=== PATIENT | male | born 1945 | race Caucasian/White ===

== ENCOUNTER 2017-04-20 09:34 | Outpatient (CLI) | payer MEDICARE, BC ==
--- NOTE | 2017-04-20 11:51 | CT ---
CHEST CT WITH CONTRAST: History: Follow up lung cancer. Patient is undergoing radiation therapy. Comparison: 09-12-15, 10-20-16, 06-06-16 Technique: Post contrast chest CT is performed in the axial plane. Coronal reformatted images are sub mitted for interpretation. FINDINGS: Heart size is within normal limits. No significant pericardial fluid. Coronary calcifications are mackenzie ntified. No significant pericardial fluid. Visualized aorta has a normal caliber. Visualized upper solid organs are unremarkable. There is a complex cyst in the left renal pelvis. Trachea and central bronchi are patent. Patchy ground glass opacities in the right lung. There is norris dence of a left upper lobe resection. The left lower lobe has linear opacification as well as more fo angelica parenchymal opacification. The degree of opacification has progressed when compared to the prior examination. Previously noted nodular opacity in the left lower lobe measuring 2.0 x 1.6 cm is diffic ult to appreciate given the overall increase in opacification. There is some elevation of the left he midiaphragm suggesting a component of atelectasis. There is a hypodensity in the left infrahilar nina on which has increased in size when compared to the prior exam. Currently, the attenuation coefficien t is 42 Hounsfield units. Note, the mass was difficult to appreciate on the previous examination. Cur rently, this hypodense mass measures 2.9 x 2.1 x 2.5 cm. Post-operative enlarging fluid collection ve rsus a necrotic lymph node/area of malignancy are differential considerations. PET imaging may be marlee eficial. There are no lytic or blastic lesions. IMPRESSION: 1. Interval enlargement and better demonstration of the hypodensity in the left infrahilar region as detailed above. PET imaging is recommended. POS: [facility]
== END 2017-04-20 09:35 | disposition home or self-care (01) ==
LOC: CT 09:34
PROVIDERS: ATTEND Radiology Radiation Oncology
DX: C34.32 Malignant neoplasm of lower lobe, left bronchus or lung (principal); C34.12 Malignant neoplasm of upper lobe, left bronchus or lung
CPT/HCPCS: 71260

== ENCOUNTER 2017-04-30 11:00 | Outpatient (CLI) | payer MEDICARE, BC ==
--- NOTE | 2017-05-02 11:34 | PET ---
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 Status post lobectomy on 10/08/14, treated with subsequent chemotherapy. Lung cancer in the l eft lower lobe diagnosed on 04/22/16 which was treated with radiation. Exam requested for restaging. TECHNIQUE: PET scanning with CT attenuation correction was performed from the base of the brain through the prox imal thighs following the intravenous administration of 14.3 mCi F18-FDG in the right antecubital fos sa. Imaging was performed after an uptake interval of 59 minutes. COMPARISON: PET CT dated 06/23/16. CORRELATION: CT chest dated 04/20/17. FINDINGS: There is mildly increased FDG uptake in the left infrahilar hyperdense mass noted on the CT scan with a SUV of 2.5. There is increased patchy FDG localization in the left lung base with a SUV of 3.4, likely due to rad iation therapy changes. No other abnormal areas of FDG localization seen in the chest. No kris hypermetabolism is seen in the neck, axilla, abdomen, or pelvis. No hypermetabolic liver, ad renal, or skeletal lesions are seen. There is physiologic activity in the GI and tracts, and the visualized portions of the brain. The CT scan used for attenuation correction demonstrates no evidence of pleural effusions or ascites. IMPRESSION: 1. Borderline FDG uptake and SUV values in the left infrahilar mass seen on the CT scan. 2. Increased patchy FDG localization in the left lower lobe is most likely due to radiation therapy changes. POS: [facility]
== END 2017-04-30 11:01 | disposition home or self-care (01) ==
LOC: PET 11:00
PROVIDERS: ATTEND Radiology Radiation Oncology
DX: C34.32 Malignant neoplasm of lower lobe, left bronchus or lung (principal)
CPT/HCPCS: 78815; A9552

== ENCOUNTER 2017-05-11 14:39 | Outpatient (CLI) | payer MEDICARE, BC ==
--- NOTE | 2017-05-11 16:32 | NM ---
VQ SCAN: History: 71-year-old male with shortness of breath. Comparison: Chest x-ray, 05-11-17. Technique: A VQ scan was performed. Ventilation images were obtained using 9.9 mCi of Xenon 133. Perf usion images were obtained using 6 mCi Technetium 99M MAA. FINDINGS: Ventilation: Breath holds, equilibrium, and washout phases are normal. No air trapping is seen. No ve ntilatory defects are present. Perfusion: No small, medium, or large perfusion defects are seen. IMPRESSION: Normal VQ scan. POS: [facility]
--- NOTE | 2017-05-11 16:35 | RAD ---
TWO VIEWS OF THE CHEST: Comparison: 01-11-17 History: Shortness of breath. FINDINGS: Two views of the chest shows an enlarged but stable cardiomediastinal silhouette. The Mediport is unc hanged in position. Increased interstitial markings are present. There is stable elevation of the lef t hemidiaphragm. There is no evidence of consolidation, mass, or pleural effusions. There is stable o pacity in the posterior aspect of the left thorax seen on the lateral radiograph. This may represent elevated left diaphragm and/or atelectasis in the left lung base. IMPRESSION: Elevated left hemidiaphragm with left basilar atelectasis. POS: [facility]
== END 2017-05-11 14:40 | disposition home or self-care (01) ==
LOC: NM 14:39
DX: J43.1 Panlobular emphysema (principal); J98.11 Atelectasis; J98.6 Disorders of diaphragm; R91.1 Solitary pulmonary nodule
CPT/HCPCS: 71020; 78582; A9540; A9558

== ENCOUNTER 2017-06-01 10:16 | Outpatient (CLI) | payer MEDICARE, BC ==
--- NOTE | 2017-06-01 11:06 | RAD ---
RADIOGRAPH CHEST 2 VIEWS: Date: 06-01-17 Time: 10:30 a.m. HISTORY: 71-year-old male with dyspnea. COMPARISON: 05-11-17 FINDINGS: Right subclavian implantable vascular access port. Chronically elevated left hemidiaphragm with left basilar pulmonary and pleural scarring, and architectural distortion. Multiple old, healed left rib f racture deformities. Ectasia and tortuosity of the thoracic aorta. Cardiac shadow partially obscured by the changes at the left. Chronic blunting of the left posterior costophrenic angle: pleural thicke hilary vs. small effusion. No evidence of pleural effusion on the right side. No new consolidation or p ulmonary edema. There is mild pulmonary vascular engorgement. No pneumothorax. No interval change ove rall. IMPRESSION: 1. Extensive chronic changes involving the left hemithorax, including multiple old left rib fractures , left basilar pulmonary scarring, and left basilar pleural thickening. 2. Implantable vascular access port. 3. No interval change, and no acute findings. DRAKE POS: [facility]
== END 2017-06-01 10:17 | disposition home or self-care (01) ==
LOC: RAD 10:16
PROVIDERS: ATTEND Internal Medicine Critical Care Medicine
DX: R06.00 Dyspnea, unspecified (principal); J98.4 Other disorders of lung; Z95.9 Presence of cardiac and vascular implant and graft, unspecified
CPT/HCPCS: 71046

== ENCOUNTER 2017-06-27 14:54 | Outpatient (CLI) | payer MEDICARE, BC ==
--- NOTE | 2017-06-27 15:37 | RAD ---
TWO VIEWS CHEST: Comparison: 06-01-17 History: Dyspnea. FINDINGS: Two views of the chest shows an enlarged but stable cardiomediastinal silhouette. The Mediport is unc hanged in position. Increased interstitial markings are present. Linear opacity in the left lung base may represent atelectasis or scarring. No obvious consolidation, mass, or pleural effusion are seen . Degenerative changes are seen in the spine. IMPRESSION: Cardiomegaly without evidence of acute cardiopulmonary disease. POS: [facility]
== END 2017-06-27 14:55 | disposition home or self-care (01) ==
LOC: RAD 14:54
PROVIDERS: ATTEND Internal Medicine Pulmonary Disease
DX: R06.00 Dyspnea, unspecified (principal); I51.7 Cardiomegaly
CPT/HCPCS: 71046

== ENCOUNTER 2017-06-29 07:57 | Outpatient (CLI) | payer MEDICARE, BC ==
--- NOTE | 2017-06-29 09:30 | CT ---
CT ARTERIOGRAM CHEST WITH IV CONTRAST AND 3D MIP IMAGING: History: Chest pain. Dyspnea. Lung cancer. Comparison: 04-20-17 FINDINGS: There is good contrast opacification of the pulmonary arteries and thoracic aorta with bovine origin of the great vessels from the aortic arch. There is calcification of the arterial structures. Post-op erative changes in the mediastinum are apparent. Post-operative changes of the left lower chest posteriorly are again demonstrated. Residual of atelec tasis and scarring at the left posterolateral lung base is stable. At the left posterior infrahilar level, just posterior to the left mainstem bronchus, the lobular low density mass having the appearance of hilar adenopathy is now 3.9 x 3.4 x 2.8 cm greatest diameter ( previously 2.9 x 2.5 x 2.1 cm). Lungs are otherwise hyperinflated with emphysematous changes and parenchymal scarring. IMPRESSION: 1. No CT evidence of pulmonary embolus. 2. Continued interval enlargement of the left infrahilar mass/adenopathy. POS: [facility]
[2017-06-29] MEDS ORDERED: Iopamidol 370 76% 100 ML VIAL ONE (12:39)
== END 2017-06-29 07:58 | disposition home or self-care (01) ==
LOC: CT 07:57
PROVIDERS: ATTEND Internal Medicine Pulmonary Disease
DX: I26.99 Other pulmonary embolism without acute cor pulmonale (principal); R59.0 Localized enlarged lymph nodes
CPT/HCPCS: 71275

== ENCOUNTER 2018-07-19 12:52 | Outpatient (CLI) | payer MEDICARE, BC ==
--- NOTE | 2018-07-19 15:10 | RAD ---
2 VIEWS CHEST: Date: 07/19/18 COMPARISON: 06/27/17. HISTORY: Dyspnea. FINDINGS: There is no pneumothorax. Heart and mediastinal contours are stable. There is atherosclerotic calcifi cation overlying the region of the descending thoracic aorta. There is increased linear interstitial density noted throughout the right lung, stable. Persistent fo angelica opacity is noted in the left lung base, including the costophrenic and cardiophrenic regions with elevation of the left hemidiaphragm. Of note, these findings are unchanged when compared to multiple prior exams. A CT angiogram of the chest performed 06/29/17 demonstrated a left hilar mass, and pleu ral and parenchymal opacity in the left base. These findings are consistent with the patient's histor y of lung cancer. IMPRESSION: Stable appearance of the chest as detailed above. POS: [facility]
== END 2018-07-19 12:53 | disposition home or self-care (01) ==
LOC: RAD 12:52
PROVIDERS: ATTEND Internal Medicine Pulmonary Disease
DX: R06.00 Dyspnea, unspecified (principal); J98.4 Other disorders of lung; R91.8 Other nonspecific abnormal finding of lung field; I70.0 Atherosclerosis of aorta
CPT/HCPCS: 71046

== ENCOUNTER 2018-07-20 14:25 | Outpatient (CLI) | payer MEDICARE, BC ==
[2018-07-20 15:38] LABS: Anion Gap 13 mmol/L (10-20); BUN (Urea Nitrogen) 23 mg/dL (8.4-25.7); Calc. Creatinine Clearance 0 mL/min (70-130); Calcium 10.1 mg/dL (7.8-10.44); Carbon Dioxide 32 mmol/L (23-31); Chloride 99 mmol/L (98-107); Estimated GFR-MDRD 47; Glucose 111 mg/dL (80-115); Potassium 4.9 mmol/L (3.5-5.1); Sodium 139 mmol/L (136-145)
== END 2018-07-20 14:26 | disposition home or self-care (01) ==
LOC: LABBT 14:25
PROVIDERS: ATTEND Internal Medicine Cardiovascular Disease
DX: Z01.812 Encounter for preprocedural laboratory examination (principal)
CPT/HCPCS: 80048

== ENCOUNTER 2018-07-21 08:18 | Day surgery (SDC) | payer MEDICARE, BC ==
[2018-07-20 17:34] VITALS: BMI 343.6
[2018-07-21] MEDS ORDERED: PROPOFOL 20 ML ONE (09:30)
--- NOTE | 2018-07-21 11:37 | DIS ---
DATE OF ADMISSION: 07/21/2018 DATE OF DISCHARGE: 07/21/2018 HOSPITAL COURSE: He was seen in the outpatient facility today to undergo electrocardioversion of atrial fibrillation. This is an elective procedure. He was recently to have atrial fibrillation with rapid ventricular response. He was also placed on Multaq yesterday morning. He has had 3 doses of Multaq and was advised to undergo electrocardioversion of atrial fibrillation. He was taken to the recovery area, where he underwent the procedure today without difficulties or complications. His discharge medications will be the same as his admission medications. These include digoxin, albuterol inhalers or nebulizers. He is also taking Daliresp, prednisone 5 mg a day, aspirin 81 mg a day, metformin 800 mg b.i.d., gabapentin, Xarelto 20 mg a day, Lipitor 40 mg a day, metoprolol 25 mg q.a.m., Trelegy Ellipta, vitamin D, potassium 20 mEq a day, Lasix 40 mg a day and also medications for his lung cancer. He is taking nivolumab, this is an intravenous injection as per the oncologist. He will follow up with me next week in the office. There were no complications or difficulties during the procedures. He remained stable. He will be discharged to home in the next hour or 2. Job ID: [id number]
[2018-07-21] MEDS ORDERED: PROPOFOL 200 MG/20 ML VIAL ONE (15:52)
--- NOTE | 2018-07-21 17:07 | EKG ---
Test Reason : POST CARDIOVERSION Blood Pressure : / mmHG Vent. Rate : 084 BPM Atrial Rate : 084 BPM P-R Int : 176 ms QRS Dur : 118 ms QT Int : 372 ms P-R-T Axes : 072 -27 043 degrees QTc Int : 439 ms Normal sinus rhythm Incomplete right bundle branch block Borderline ECG When compared with ECG of 21-APR-2016 12:16, Incomplete right bundle branch block is now Present Confirmed by SHANNON BEAL ([id number]) on 07/21/2018 5:07:07 PM Referred By: GABRIELLA Confirmed By:SHANNON BEAL
--- NOTE | 2018-07-22 18:34 | OP ---
DATE OF PROCEDURE: 07/21/18 INDICATION FOR PROCEDURE: This is an 72-year-old with history of coronary artery disease, lung cancer, COPD, who developed atri al fibrillation, shortness of breath. The atrial fibrillation was with rapid ventricular response. He was advised to undergo electrocardioversion of the atrial fibrillation. He was taken to the recovery area where he underwent the procedure without difficulties or complicat ions. He has been on Xarelto for several months due to his history of PE in the past. He underwent th e procedure today only with electrocardioversion at one attempt at 200 joules. He was successfully co nverted back to normal sinus rhythm. He was given short acting Propofol for the procedure. There were no complications or difficulties encountered.
== END 2018-07-21 10:58 | disposition home or self-care (01) ==
LOC: CCL 08:18
PROVIDERS: ATTEND Internal Medicine Cardiovascular Disease
PROC: 5A2204Z Restoration of Cardiac Rhythm, Single (ICD-10-PCS; principal; 2018-07-21)
DX: I48.0 Paroxysmal atrial fibrillation (principal); I25.10 Atherosclerotic heart disease of native coronary artery without angina pectoris; I10 Essential (primary) hypertension; E11.9 Type 2 diabetes mellitus without complications; E78.2 Mixed hyperlipidemia; J44.9 Chronic obstructive pulmonary disease, unspecified; Z79.52 Long term (current) use of systemic steroids; Z79.82 Long term (current) use of aspirin; Z79.84 Long term (current) use of oral hypoglycemic drugs; Z79.899 Other long term (current) drug therapy; Z95.1 Presence of aortocoronary bypass graft
CPT/HCPCS: 92960; 93005; 93010; J2704

== ENCOUNTER 2018-09-08 10:14 | Inpatient (IN) | payer MEDICARE, BC ==
[2018-09-08 11:18] LABS: INR-International Normal Ratio 1.5; PTT 40.5 SEC (22.9-36.1); Prothrombin Time 17.9 SEC (12.0-14.7)
[2018-09-08 11:24] LABS: ALT (SGPT) 314 U/L (8-55); AST (SGOT) 139 U/L (5-34); Albumin 3.6 g/dL (3.4-4.8); Alkaline Phosphatase 100 U/L (40-150); Anion Gap 16 mmol/L (10-20); BUN (Urea Nitrogen) 41 mg/dL (8.4-25.7); Calc. Creatinine Clearance 0 mL/min (70-130); Calcium 9.5 mg/dL (7.8-10.44); Carbon Dioxide 26 mmol/L (23-31); Chloride 96 mmol/L (98-107); Estimated GFR-MDRD 51; Globulin 3.2 g/dL (2.4-3.5); Glucose 227 mg/dL (83-110); Potassium 4.2 mmol/L (3.5-5.1); Protein, Total 6.8 g/dL (5.8-8.1); Sodium 134 mmol/L (136-145)
[2018-09-08 11:33] LABS: Platelet Morphology Comment Appears Decreased
[2018-09-08 11:34] LABS: #Eosinphils 0.1 thou/uL (0.0-0.7); #Lymphocytes 0.3 thou/uL (1.20-3.40); #Monocytes 0.1 thou/uL (0.11-0.59); #Neutrophils 2.3 thou/uL (1.40-6.50); %Eosinophils 5.1 % (0.0-10.0); %Monocytes 2.7 % (0.0-10.0); %Neutrophils 83.3 % (42.0-75.0); Mean Corpuscular HGB CONC 33.3 g/dL (32.0-36.0); Mean Corpuscular Hemoglobin 30.2 pg (27.0-31.0); Mean Corpuscular Volume 90.7 fL (78.0-98.0); Mean Platelet Volume 7.8 fL (7.4-10.4); Platelet Count 90 thou/uL (130-400); RBC Distribution Width 15.4 % (11.5-14.5); Red Blood Cell (RBC) Count 2.97 mill/uL (4.70-6.10); White Blood Cell (WBC) Count 2.8 thou/uL (4.8-10.8)
[2018-09-08] MEDS ORDERED: Oxymetazoline HCl 0.05% ( 15 ML ) ONE (13:10)
--- NOTE | 2018-09-08 14:25 | ULT ---
EXAM: Bilateral lower extremity venous duplex ultrasound with color and spectral Doppler imaging: HISTORY: Lower extremity edema and redness particularly in the left calf COMPARISON: None FINDINGS: The left posterior tibial veins were less than optimally imaged because of extensive edema Exam performed from the groin to the ankle including the visualized greater saphenous, common femoral , superficial femoral, profunda femoral, popliteal, trifurcation, and posterior tibial veins. There is phasic flow with normal compressibility and normal augmentation at all examined levels. No evidence for intraluminal thrombus. IMPRESSION:: No evidence for deep venous thrombosis.
[2018-09-08] MEDS ORDERED: hydrALAZINE 20 MG/ML VIAL SLOW IVP PRN (16:27)
[2018-09-08] MEDS ORDERED: Oxymetazoline HCl 0.05% ( 15 ML ) NASAL PRN (16:27)
[2018-09-08] MEDS ORDERED: HumaLOG 300 UNITS/3 ML VIAL SC PRN ×2 (16:27)
[2018-09-08] MEDS ORDERED: Dextrose 50% Abboject 50 ML SYRINGE SLOW IVP PRN (16:27)
[2018-09-08] MEDS ORDERED: Promethazine 25 MG TAB PO PRN (16:27)
[2018-09-08] MEDS ORDERED: Dextrose 5% in Water 1,000 ML IV PRN (16:27)
[2018-09-08] MEDS ORDERED: Metoprolol Tartrate 25 MG TAB PO SCH (16:45)
[2018-09-08] MEDS ORDERED: Dronedarone HCl 400 MG TAB PO SCH ×2 (17:00→19:30)
[2018-09-08 19:55] LABS: D-Dimer Test 1.54 *mcg/mL (0.27-0.43)
[2018-09-08] MEDS ORDERED: Atorvastatin Calcium 40 MG TAB PO SCH (21:00)
[2018-09-08] MEDS ORDERED: Aspirin 81 mg Enteric Coated Tablet PO SCH (21:00)
[2018-09-08] MEDS: Rivaroxaban 10 MG TAB PO SCH (21:31)
[2018-09-08] MEDS: Gabapentin 300 MG CAP PO SCH (21:32)
[2018-09-08] MEDS: Metoprolol Tartrate 25 MG TAB PO SCH (21:34)
[2018-09-08] MEDS ORDERED: Ondansetron PF 4 MG/2 ML Vial IVP PRN (21:55)
[2018-09-08] MEDS ORDERED: Ondansetron ODT 4 MG TAB PO PRN (21:59)
[2018-09-08] MEDS: Acetaminophen 325 MG TAB PO PRN (22:48)
[2018-09-08] MEDS: Ibuprofen 600 MG TAB PO SCH (22:49)
--- NOTE | 2018-09-08 23:19 | HP ---
PRIMARY CARE PHYSICIAN: Dr. Carpio. CHIEF COMPLAINT: Nosebleed. HISTORY OF PRESENT ILLNESS: Mr. Barbosa is a pleasant 73-year-old gentleman who has a history of lung cancer as well as coronary artery disease, atrial fibrillation, and a previous pulmonary embolism. He was in his usual state of health until last night when he woke up around 5:30 in the morning as he was having some pain in his leg. He was straining to pull off the compression hose that he normally wears and then started noticing bleeding from the left nostril. He says that later on that night he went to the bathroom and strained, and then the nose started to bleed again. He says it was quite a lot close to he says a gallon and this worried him and for this reason he came to the emergency room for evaluation. He denies having any dizziness. No headache or chest pain. He is on Xarelto for the pulmonary embolism as well as atrial fibrillation, and otherwise he has no complaints except for leg pain which he attributed to the compression stockings. REVIEW OF SYSTEMS: All systems were reviewed and are negative except for that mentioned in the history of present illness. PAST MEDICAL HISTORY: Significant for coronary artery disease, lung cancer, diagnosed 4 years ago, COPD, diabetes mellitus, hyperlipidemia, pulmonary embolism, and paroxysmal atrial fibrillation. PAST SURGICAL HISTORY: He has had a bypass surgery, staph infection, left upper lobe resection, removal of lymph nodes and a cardioversion. ALLERGIES: NO KNOWN DRUG ALLERGIES. SOCIAL HISTORY: He is a full code. He is a nondrinker. He is a former smoker and he quit in 2010. Prior to that, he smoked 2-4 packs a day and he is . FAMILY HISTORY: Significant for thyroid disease in his mother. Father had prostate cancer and congestive heart failure. CURRENT MEDICATIONS: Include; 1. Aspirin 81 mg daily. 2. Atorvastatin 40 mg daily. 3. Metoprolol 25 mg twice a day. 4. Xarelto 20 mg daily. 5. Spiriva 1 inhalation daily. 6. DuoNeb p.r.n. 7. Gabapentin 300 mg daily. 8. Furosemide 40 mg daily. 9. Digoxin 0.25 mg daily. 10. Daliresp inhaled daily. 11. Multaq 400 mg daily. PHYSICAL EXAMINATION: GENERAL: He is alert and oriented. He appears to be in no acute distress. VITAL SIGNS: Blood pressure was 119/58, heart rate 97, respiratory rate of 20, and temperature is 98.2. HEENT: Pupils are equal, round, and reactive. Extraocular muscles are intact. Sclerae are anicteric. Throat, there is no erythema, no exudates. Nose, in both nostrils, he did have some dried blood and on the right nostril, there appeared to be a little area of excoriation in the medial and anterior aspects of the nasal canal. NECK: No adenopathy, no bruits. LUNGS: Clear to auscultation. There is no wheezing, no rales. CARDIOVASCULAR: He has a normal S1, S2. No S3 or S4. No murmurs, clicks, or rubs. ABDOMEN: Obese, it is soft, nontender, and nondistended. Positive for bowel sounds. No rebound or guarding. EXTREMITIES: He did have some mottling of the skin consistent with some livedo reticularis. He did have some 1 to 2+ edema. NEUROLOGICAL: The exam is nonfocal. SKIN AND INTEGUMENT: No skin changes. No rash. LABORATORY RESULTS: INR is 1.5. White blood cell count 2.8, hemoglobin 9, hematocrit is 26.9, and platelet count is 90. Sodium 134, potassium 4.2, chloride is 96, CO2 is 26, BUN of 41, creatinine 1.38, glucose is 227. ASSESSMENT: This is a pleasant 73-year-old gentleman, who presents with epistaxis. This is in the setting of being on anticoagulation. He will be monitored overnight in observation. It appears as if he has reached hemostasis here in the emergency room. He was given pressure and Afrin, and has not had any significant bleeding sense. We will continue him on the Xarelto an aspirin and hopefully he will not have any additional bleeding. Otherwise, we may need to consult ENT. 1. For the atrial fibrillation, his heart rate has been variable. We will need to restart his home medications and any home medications. 2. Chronic obstructive pulmonary disease. We will continue Symbicort as well as his DuoNeb and if the patient is stable overnight, hopefully he can be discharged home in a.m. Job ID: [id number]
[2018-09-09 06:30] LABS: Anion Gap 12 mmol/L (10-20); BUN (Urea Nitrogen) 40 mg/dL (8.4-25.7); Calc. Creatinine Clearance 64 mL/min (70-130); Calcium 8.8 mg/dL (7.8-10.44); Carbon Dioxide 28 mmol/L (23-31); Chloride 97 mmol/L (98-107); Estimated GFR-MDRD 53; Glucose 172 mg/dL (83-110); Sodium 133 mmol/L (136-145)
[2018-09-09 06:37] LABS: #Lymphocytes 0.3 thou/uL (1.20-3.40); #Monocytes 0.1 thou/uL (0.11-0.59); #Neutrophils 1.7 thou/uL (1.40-6.50); %Eosinophils 1.8 % (0.0-10.0); %Lymphocytes 13.1 % (21.0-51.0); %Neutrophils 80.1 % (42.0-75.0); Hemoglobin 7.8 g/dL (14.0-18.0); Mean Corpuscular HGB CONC 34.2 g/dL (32.0-36.0); Mean Corpuscular Hemoglobin 30.8 pg (27.0-31.0); Mean Corpuscular Volume 90.3 fL (78.0-98.0); Mean Platelet Volume 8.5 fL (7.4-10.4); Platelet Count 47 thou/uL (130-400); RBC Distribution Width 15.1 % (11.5-14.5); Red Blood Cell (RBC) Count 2.53 mill/uL (4.70-6.10); White Blood Cell (WBC) Count 2.2 thou/uL (4.8-10.8)
[2018-09-09 06:38] LABS: Platelet Morphology Comment Appears Decreased
[2018-09-09] MEDS: Gabapentin 300 MG CAP PO SCH ×3 (08:33→21:13)
[2018-09-09] MEDS: Metoprolol Tartrate 25 MG TAB PO SCH ×2 (08:33→21:14)
[2018-09-09] MEDS: Dronedarone HCl 400 MG TAB PO SCH ×2 (08:33→17:54)
[2018-09-09] MEDS ORDERED: Metoprolol Tartrate 25 MG TAB PO SCH (09:00)
[2018-09-09] MEDS: metFORMIN 850 MG TAB PO SCH ×2 (09:49→17:54)
[2018-09-09] MEDS: Acetaminophen 325 MG TAB PO PRN (10:33)
--- NOTE | 2018-09-09 11:46 | PDOC.PN ---
- Subjective Encounter Start Date: 09/09/18 Encounter Start Time: 11:45 Patient seen and examined. No new complaints. No overnight events. no nose bleed. No n/v no sob - Objective Resuscitation Status - Order Detail: 09/08/18 16:19 Resuscitation Status Routine Resuscitation Status: FULL: Full Resuscitation MAR Reviewed: Yes Vital Signs & Weight: Vital Signs (12 hours) Temp Pulse Resp BP BP BP Pulse Ox 09/09/18 11:00 97.6 F 09/09/18 07:00 97.5 F L 84 20 123/58 L 96 09/09/18 03:00 97.8 F 78 12 97/52 L 95 09/09/18 00:03 98.2 F 96 16 119/66 93 L Weight Admit Weight 195 lb Weight 195 lb I&O: 09/08/18 09/09/18 09/10/18 06:59 06:59 06:59 Intake Total 850 Output Total 1850 Balance -1000 Result Diagrams: 09/09/18 05:15 09/09/18 05:15 Additional Labs: Accuchecks 09/09/18 09/09/18 09/08/18 11:02 05:48 20:37 POC Glucose 259 H 194 H 203 H Phys Exam - Physical Examination Constitutional: NAD HEENT: sclera anicteric Neck: supple Respiratory: no wheezing, no rales Cardiovascular: RRR Gastrointestinal: soft Musculoskeletal: edema present Neurological: non-focal, moves all 4 limbs Psychiatric: normal affect, A&O x 3 Skin: no rash Dx/Plan (1) Pancytopenia Code(s): D61.818 - OTHER PANCYTOPENIA Status: Acute (2) Epistaxis Code(s): R04.0 - EPISTAXIS Status: Acute (3) Edema Code(s): R60.9 - EDEMA, UNSPECIFIED Status: Chronic (4) Pulmonary embolism Code(s): I26.99 - OTHER PULMONARY EMBOLISM WITHOUT ACUTE COR PULMONALE Status : Chronic (5) CAD (coronary artery disease) Code(s): I25.10 - ATHSCL HEART DISEASE OF [place] CORONARY ARTERY W/O ANG PCTRS Status: Chronic (6) Lung cancer Code(s): C34.90 - MALIGNANT NEOPLASM OF UNSP PART OF UNSP BRONCHUS OR LUNG Status: Chronic (7) COPD (chronic obstructive pulmonary disease) Status: Chronic (8) HTN (hypertension) Code(s): I10 - ESSENTIAL (PRIMARY) HYPERTENSION Status: Chronic - Plan cont current plan of care, plan discussed w/ family * . no more nose bleed platelets dropped awaiting hem input will consult pulmonology per family request - recent pneumonia and on blood thinner for PE since 2014 AM labs Monitor closely.
--- NOTE | 2018-09-09 14:02 | RAD ---
EXAM: XR Chest 1 View Portable PROVIDED CLINICAL HISTORY: Dyspnea COMPARISON: 07/19/2018 FINDINGS: Cardiac silhouette remains enlarged. Right-sided implanted port is again seen in similar position. Ri ght lung appears clear. Left basilar pleural and/or parenchymal opacity along with elevation of the left hemidiaphragm redemonstrated. No evidence for pneumothorax. IMPRESSION: Stable radiographic appearance of the chest.
[2018-09-09] MEDS: Sodium Chloride 0.65% Nasal 44 ML BOT EA NARE SCH ×2 (15:39→21:15)
[2018-09-09] MEDS: Rivaroxaban 10 MG TAB PO SCH (17:55)
[2018-09-09] MEDS: Mometasone/Formoterol 120 PUFF INHALER INH SCH (19:53)
--- NOTE | 2018-09-09 20:48 | CON ---
DATE OF CONSULTATION: HISTORY OF PRESENT ILLNESS: Jos Barbosa is a 73-year-old gentleman with a very complicated medical history, who was admitted to the hospital yesterday after he had epistaxis. He called his primary care physician, he was told to come to the ER. He was then found to have severe thrombocytopenia, platelet count 47,000, H and H are 7.8 and 22, and white count is 2.2. Creatinine 1.3, sodium 133, and BUN 40. He is seeing MD Leon for an ongoing evaluation and treatment for his metastatic non-small cell lung cancer. He has additional multiple medical problems, but epistaxis did not resolve with symptomatic treatment. He came to the ER. This morning, bleeding has decreased, but still a significant thrombocytopenia. He is having difficulty breathing. He coughed yesterday fair amount of sputum. He was told he had a bout of pneumonia about a week ago when he got chemotherapy. PAST MEDICAL HISTORY: Severe end-stage COPD, coronary artery disease, congestive heart failure, SVT, hypertension, bronchogenic carcinoma recurrent now on chemotherapy by MD Leon. The family has a list of all his medication. History of extensive DVT and PE, long-term anticoagulation. PAST SURGICAL HISTORY: Past surgeries include bypass surgery, lung resection surgery, and left upper lobe lobectomy. He has since then followed up with stereotactic radiation treatment several times. Recently underwent cardioversion by Dr. Dyer, for SVT. Additionally, he had sternal wound infection requiring flap at one time. MEDICATIONS: His list of medicine now includes; 1. Prednisone. 2. Metformin 850. 3. Daliresp 250. 4. Xarelto 20. 5. Potassium. 6. Opdivo 3 mg IV 14 days. 7. Metoprolol 25. 8. Nebulizer. 9. Neurontin 300 three times a day. 10. Lasix 40. 11. Trelegy inhaler once a day. 12. Multaq 400. 13. Digoxin 0.25. 14. Aspirin. ALLERGIES: NONE. SOCIAL HISTORY: Tobacco, former smoker. Alcohol of whiskey daily. REVIEW OF SYSTEMS: A 10-point negative. PHYSICAL EXAMINATION: VITAL SIGNS: His saturations are 96% on 2 L, respiratory rate 20, temperature 97, blood pressure 123/58. CHEST: Decreased breath sounds. No wheezing. CARDIAC: Normal S1 and S2. No gallops. ABDOMEN: No masses. IMPRESSION: 1. Pancytopenia secondary to chemotherapy. 2. Renal failure. 3. History of pulmonary embolism and deep venous thrombosis on long-term Xarelto. 4. Upper lobe lobectomy, left following the lung cancer with stereotactic radiation and chemotherapy now at [facility]. 5. Obesity. 6. Diabetes. PLAN: ENT is consulted for symptomatic nasal bleed, concerned about his thrombocytopenia following the chemotherapy. His bleeding does not subside. He may require stopping Xarelto. If he has evidence of PE, he will require a filter. This was discussed with the patient at length. They understand. We will follow. Serial exam. Consultation note, 70 minutes. Job ID: [id number]
[2018-09-09] MEDS ORDERED: metFORMIN 850 MG TAB PO SCH (21:00)
[2018-09-09] MEDS ORDERED: Amoxicillin/Potassium Clav 875 MG TAB PO SCH (21:00)
[2018-09-09] MEDS: Aspirin 81 mg Enteric Coated Tablet PO SCH (21:10)
[2018-09-09] MEDS: Ibuprofen 600 MG TAB PO SCH (21:13)
[2018-09-09] MEDS: Atorvastatin Calcium 40 MG TAB PO SCH (21:14)
[2018-09-09] MEDS: Amoxicillin/Potassium Clav 875 MG TAB PO SCH (21:15)
--- NOTE | 2018-09-09 21:34 | CON ---
DATE OF CONSULTATION: PRIMARY CARE DOCTOR: Dr. Carpio. PRIMARY YEAST WASHER: Dr. Dyer. PRIMARY INSTALLER INSPECTOR FINAL: Dr. Thomas. PRIMARY ONCOLOGIST: MD Leon in [place], [place]. HISTORY OF PRESENT ILLNESS: The patient has been seen in followup with Dr. Dyer for quite sometimes for history of coronary artery disease and atrial fibrillation with status post BUCKY and cardioversion in July 2018. He has a long history of pulmonary embolism. He has been on Xarelto. Yesterday morning, around 5 o'clock, he wakened up for the pain in the lower extremities because he has been wearing compression stockings, which was supposed to be taking off at night. So, in the morning around 5 o'clock, he tried to take it off his compression stocking and he noticed that he started having blood coming out from his nose and it lasts for 2 hours and then it eventually stopped. However, after he had a bowel movement, even though he did not strain, he started having nose bleeding again. It was quite a lot. Because of that, the patient's family transferred this patient to emergency department for further evaluation and treatment. At the ER, the patient's nose bleeding was stopped, however, the patient was found to have atrial fibrillation for a short period of time according to the patient's , and he went back to the sinus rhythm and sinus tach. 12-lead EKG at the ER showed sinus rhythm and sinus tach. However, due to one of the atrial fibrillation episodes, Cardiology consult was requested. He has been on Xarelto for pulmonary embolism and also atrial fibrillation. The patient underwent BUCKY and cardioversion in July [address] Dyer. The patient was converted back to sinus rhythm. He has a history of CABG x4 in 2010, and the patient had a BUCKY and a cardioversion done in June 2018, and echocardiogram was done in June 2017 with EF of 45%, abnormal septal wall motion, grade 1 diastolic dysfunction, mild mitral valve regurgitation, mild aortic valve insufficiency, elevated RVSP, mild LVH, moderate tricuspid regurgitation, and mild aortic valve sclerosis. The patient has a stress test done in 2016, shows no ischemia. The patient underwent left lower lobe nodule pneumonectomy in 2015. MEDICAL HISTORY: COPD, sternal infection after CABG, hypertension, hyperlipidemia, coronary artery disease, left lung cancer since 2014, and status post PE, he has been on Xarelto. PAST SURGICAL HISTORY: Left upper lobectomy and CABG x4 in 2010, status post BUCKY and cardioversion in June 2018. FAMILY HISTORY: The patient's mother has a history of thyroid disease. The patient's father has a history of prostate cancer and congestive heart failure. SOCIAL HISTORY: The patient is . 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 He is an ex-smoker. He quit in 2010. He used to smoke 2 to 4 packs a day. He is still drinking until July 2018. He drinks 2 fingers of whiskey every night at that time, but he supposed to quit from July 2018 due to elevated liver function level. ALLERGIES: HE HAS NO KNOWN DRUG ALLERGIES. CURRENT MEDICATION: 1. Aspirin 81 mg once a day. 2. Atorvastatin 40 mg once a day. 3. Metoprolol 25 mg twice a day. 4. Xarelto 20 mg once a day. 5. Spiriva 1 puff once a day. 6. DuoNeb as needed. 7. Gabapentin 300 mg once a day. 8. Furosemide 40 mg once a day and one extra as needed in the afternoon after chemotherapy. 9. Digoxin 0.25 mg once a day. 10. Daliresp inhaler daily. 11. Multaq 400 mg twice a day. REVIEW OF SYSTEMS: Twelve-point review of systems unless otherwise mentioned in the HPI. The patient denied any cardiac complaints at this moment. He had chronic shortness of breath due to COPD and history of lung cancer. He denied blood in his stool or urine. PHYSICAL EXAMINATION: VITAL SIGNS: Blood pressure 123/58, temperature 97.5, pulse 84, respiratory rate 20, and O2 sat 96% with 2 L nasal cannula. GENERAL: The patient is alert and oriented x4, and not in acute distress. HEENT: Normocephalic and atraumatic. Eyes, extraocular muscle movement intact. He wears glasses. ENT and mouth, oral and nasal mucosa moist without lesion and no active bleeding at this moment since this moment. NECK: No JVD. Normal range of motion. . RESPIRATORY: Very diminished at the left lower lobe, but no wheezing, rhonchi or rales noted. CARDIOVASCULAR: Regular rate and rhythm. Normal S1 and S2. No S3 or S4. No significant murmur, hives or thrills noted. 2+ pulses in upper and lower extremities. He has edema in the left lower extremity; however, that is chronic due to status post a vein graft harvest for the CABG. No edema in right lower extremity. Time is. ABDOMEN: Soft and nontender. No mass to palpate. Bowel sounds are present. SKIN: Warm and dry. No lesion, erythema or rash noted. MUSCULOSKELETAL: The patient is able to move all extremities without any difficulty. The patient denied claudication. PSYCHIATRIC: The patient's mood is appropriate. NEUROLOGIC: The patient is alert and oriented x4. Nonfocal. LABORATORY DATA: WBC 2.2; hemoglobin 7.8, which was 9.0 yesterday; hematocrit 22.9 from 26.9 yesterday; platelet 47 from 90 from yesterday. INR 1.5. D-dimer 1.54. Sodium 133, potassium 4.0, BUN 40, creatinine 1.33, and glucose 172. AST 139, which was 438 in July 2018; ALT is 314, which was 546 in July 2018. DIAGNOSTIC DATA: The patient underwent a venogram yesterday for elevated D-dimer, which showed no evidence of deep vein thrombosis. The patient had a chest x-ray today, stable radiographic appearance of the chest. ASSESSMENT/PLAN: 1. One short episode of atrial fibrillation with rapid ventricular response at the ER. According to family member, the episode was very short and the patient converted back to sinus rhythm within a couple of minutes per the patient and family. The patient denies any chest pain, dizziness, lightheadedness or any other cardiac complaints except chronic shortness of breath. At this moment, we would like to resume the Multaq 400 mg twice a day with beta-ewa and aspirin if the patient can tolerate; however, we would like to hold the Xarelto due to hemostasis and low platelet level. 2. Hemostasis, which is stable at this moment. He has not had any active nose bleeding since this morning. However, since the patient's hemoglobin level, blood count is very low, at this moment, the patient is going to stay overnight today and he is going to have another CBC checked tomorrow morning. At this moment, we would like to hold the Xarelto, although the patient has a history of atrial fibrillation and pulmonary embolism due to the low platelet level of less than 50. 3. Chronic shortness of breath. The patient's condition is stable at this moment with 2 L nasal cannula, which is managed by global human resources director. We would like to defer resuming Xarelto to global human resources director. 4. Coronary artery disease with history of a bypass. The patient's condition is stable at this moment. He is on metoprolol, aspirin, and Lipitor at this moment. 5. Hypertension. The patient's blood pressure is stable at this moment. 6. History of lung cancer, which is managed by oncologist. Thank you very much for allowing the Cardiology Service to participate in the care of this patient. We will follow along the patient's care team and make further recommendations as appropriate. Job ID: [id number]
--- NOTE | 2018-09-09 22:13 | CON ---
DATE OF CONSULTATION: REASON FOR CONSULTATION: Pancytopenia. HISTORY OF PRESENT ILLNESS: A 73-year-old male with history of lung cancer, COPD, atrial fibrillation, pulmonary embolism, on Xarelto, presenting to the hospital with epistaxis. The patient had been having pain in his right leg at home and was straining getting his compression hose off and noticed that he started having a nosebleed. He and his state that he had paper towels full of blood and were unable to stop it. He then presented to the ER and had Afrin and supportive care and the epistaxis ceased. He denies any further bleeding. The patient is currently receiving Alimta chemotherapy at [facility] with Dr. Driss Rodrigues and his last treatment was on August 30. REVIEW OF SYSTEMS: Ten-point review of systems negative except as per HPI. PAST MEDICAL HISTORY: Lung cancer, CAD, COPD, diabetes, hyperlipidemia, PE, atrial fibrillation. PAST SURGICAL HISTORY: Bypass surgery, staph infection, left upper lobe resection, removal of lymph nodes and cardioversion. ALLERGIES: NO KNOWN DRUG ALLERGIES. SOCIAL HISTORY: This patient does not drink as of recently and used to drink 1-2 shots of whiskey per day. He is a former smoker and quit in 2010 and then previously smoked 2-4 packs a day. FAMILY HISTORY: Prostate cancer in his father. CURRENT MEDICATIONS: Reviewed vital signs temperature 97.5, pulse 84, respirations 16, saturating 96% on 2 L by nasal cannula with a blood pressure of 123/58. PHYSICAL EXAMINATION: GENERAL APPEARANCE: The patient is sitting up in no acute distress. HEENT: Normocephalic, atraumatic. No epistaxis noted. LUNGS: Nonlabored respirations, currently wearing nasal cannula. NEUROLOGIC: Nonfocal. SKIN: Bilateral upper extremity ecchymoses. PSYCHIATRIC: Awake, alert, oriented x3. LABORATORY DATA: White blood cells 2.2, hemoglobin 7.8, platelets 90 on admission, currently down to 47. Sodium 133, potassium 4.0, BUN 40, creatinine 1.33, glucose 172, calcium 8.8, AST 139, ALT 314. ASSESSMENT AND PLAN: A 73-year-old male with lung cancer on chemotherapy. Pulmonary embolus, on Xarelto, presenting with epistaxis. The patient's epistaxis has stopped and he has had no other bleeding. He remains on Xarelto with acute drop of his platelets from 90 to 47. His pancytopenia is likely secondary to chemotherapy and his large drop in platelets is likely consumptive secondary to the bleed. If his platelets drop any lower than 47, I would recommend holding his Xarelto until there are 50 or higher. If the platelets are stable tomorrow, he can be discharged home with followup in [place] at [facility] for ongoing care. Thank you for this consult. Job ID: [id number]
[2018-09-10 05:38] LABS: #Lymphocytes 0.3 thou/uL (1.20-3.40); #Monocytes 0.1 thou/uL (0.11-0.59); #Neutrophils 1.3 thou/uL (1.40-6.50); %Basophils 0.6 % (0.0-1.0); %Eosinophils 1.7 % (0.0-10.0); %Lymphocytes 15.2 % (21.0-51.0); %Neutrophils 74.6 % (42.0-75.0); Hemoglobin 7.2 g/dL (14.0-18.0); Mean Corpuscular HGB CONC 33.9 g/dL (32.0-36.0); Mean Corpuscular Hemoglobin 30.5 pg (27.0-31.0); Mean Corpuscular Volume 89.9 fL (78.0-98.0); Mean Platelet Volume 8.8 fL (7.4-10.4); Platelet Count 26 thou/uL (130-400); RBC Distribution Width 14.9 % (11.5-14.5); Red Blood Cell (RBC) Count 2.35 mill/uL (4.70-6.10); White Blood Cell (WBC) Count 1.8 thou/uL (4.8-10.8)
[2018-09-10 05:52] LABS: Anion Gap 11 mmol/L (10-20); BUN (Urea Nitrogen) 39 mg/dL (8.4-25.7); Calc. Creatinine Clearance 72 mL/min (70-130); Calcium 8.5 mg/dL (7.8-10.44); Carbon Dioxide 28 mmol/L (23-31); Chloride 99 mmol/L (98-107); Estimated GFR-MDRD 61; Glucose 172 mg/dL (83-110); Potassium 3.9 mmol/L (3.5-5.1); Sodium 134 mmol/L (136-145)
--- NOTE | 2018-09-10 05:58 | PDOC.EVN ---
Event Note - Event Note Event Note: RN called - Plt 26k. Will repeat labs later today. Hematology following
[2018-09-10] MEDS: Mometasone/Formoterol 120 PUFF INHALER INH SCH ×2 (06:59→19:12)
[2018-09-10] MEDS ORDERED: predniSONE 5 MG TAB PO SCH (08:00)
[2018-09-10] MEDS: metFORMIN 850 MG TAB PO SCH ×4 (08:50→17:55)
[2018-09-10] MEDS: Dronedarone HCl 400 MG TAB PO SCH ×2 (08:51→17:53)
[2018-09-10] MEDS: predniSONE 5 MG TAB PO SCH (08:52)
[2018-09-10] MEDS: Amoxicillin/Potassium Clav 875 MG TAB PO SCH ×2 (08:54→20:17)
[2018-09-10] MEDS: Digoxin 0.25 MG TAB PO SCH (08:55)
[2018-09-10] MEDS: Gabapentin 300 MG CAP PO SCH ×3 (08:57→20:19)
[2018-09-10] MEDS: Furosemide 40 MG TAB PO SCH (08:57)
[2018-09-10] MEDS: Metoprolol Tartrate 25 MG TAB PO SCH ×2 (08:58→20:20)
[2018-09-10] MEDS: ROFLUMILAST 250 MCG PO SCH (08:58)
[2018-09-10] MEDS ORDERED: Furosemide 40 MG TAB PO SCH (09:00)
[2018-09-10] MEDS ORDERED: Digoxin 0.25 MG TAB PO SCH (09:00)
[2018-09-10] MEDS: Sodium Chloride 0.65% Nasal 44 ML BOT EA NARE SCH ×3 (09:00→20:22)
--- NOTE | 2018-09-10 10:30 | PDOC.PN ---
- Subjective Encounter Start Date: 09/10/18 Encounter Start Time: 10:29 Patient seen and examined. No new complaints. No overnight events. Mild bleeding reported No sob or chest pain. - Objective Resuscitation Status - Order Detail: 09/08/18 16:19 Resuscitation Status Routine Resuscitation Status: FULL: Full Resuscitation MAR Reviewed: Yes Vital Signs & Weight: Vital Signs (12 hours) Temp Pulse Resp BP BP BP Pulse Ox 09/10/18 08:05 97.8 F 98 20 105/55 L 93 L 09/10/18 06:51 88 16 09/10/18 03:50 97.9 F 88 20 119/59 L 95 09/09/18 23:40 99 F 89 18 112/62 95 Weight Admit Weight 195 lb Weight 195 lb I&O: 09/09/18 09/10/18 09/11/18 06:59 06:59 06:59 Intake Total 850 1040 Output Total 1850 Balance -1000 1040 Result Diagrams: 09/10/18 05:04 09/10/18 05:04 Additional Labs: Accuchecks 09/10/18 09/09/18 09/09/18 06:21 21:25 16:03 POC Glucose 169 H 224 H 157 H 09/09/18 11:02 POC Glucose 259 H Phys Exam - Physical Examination Constitutional: NAD HEENT: sclera anicteric Neck: no nodes Respiratory: no wheezing, no rales Cardiovascular: RRR Gastrointestinal: soft Musculoskeletal: edema present Neurological: non-focal, moves all 4 limbs Psychiatric: normal affect Skin: no rash Dx/Plan (1) Pancytopenia Code(s): D61.818 - OTHER PANCYTOPENIA Status: Acute (2) Epistaxis Code(s): R04.0 - EPISTAXIS Status: Acute (3) Edema Code(s): R60.9 - EDEMA, UNSPECIFIED Status: Chronic (4) Pulmonary embolism Code(s): I26.99 - OTHER PULMONARY EMBOLISM WITHOUT ACUTE COR PULMONALE Status : Chronic (5) CAD (coronary artery disease) Code(s): I25.10 - ATHSCL HEART DISEASE OF [place] CORONARY ARTERY W/O ANG PCTRS Status: Chronic (6) Lung cancer Code(s): C34.90 - MALIGNANT NEOPLASM OF UNSP PART OF UNSP BRONCHUS OR LUNG Status: Chronic (7) COPD (chronic obstructive pulmonary disease) Status: Chronic (8) HTN (hypertension) Code(s): I10 - ESSENTIAL (PRIMARY) HYPERTENSION Status: Chronic - Plan cont current plan of care, plan discussed w/ family * . platelet dropped will hold Xarelto Appreciate input from Hem,pulm and cardiology change to inpatient. Monitor labs.
[2018-09-10 12:10] LABS: Platelet Count 25 thou/uL (130-400)
--- NOTE | 2018-09-10 12:26 | PRG ---
DATE OF SERVICE: 09/10/2018 SUBJECTIVE: He is doing well. Minimal epistaxis. No coughing. No wheezing. He is still short of breath. OBJECTIVE: VITAL SIGNS: Saturations are 94% on 2 L, pulse 80, blood pressure 130/80. CHEST: Decreased breath sounds. CARDIAC: Normal S1, S2. No gallop. ABDOMEN: No masses. LABORATORY DATA: Platelet count 25,000, H and H 6 and 21. IMPRESSION: 1. Pancytopenia secondary to chemotherapy. 2. Metastatic lung cancer. A 10 units of platelets being transfused. Otherwise, I agree with discontinuing Xarelto and aspirin. We will follow. Job ID: [id number]
--- NOTE | 2018-09-10 18:41 | PDOC.CTH ---
Cardiology Progress Note - Subjective The pt seen and examined. No overnight events. No cardiac complaints. - Objective Vital Signs Temp Pulse Pulse Resp BP BP Pulse Ox 09/10/18 18:15 98.5 F 91 20 110/56 L 93 L 09/10/18 15:45 98.6 F 93 20 103/59 L 92 L 09/10/18 15:34 78 12 09/10/18 15:23 98.3 F 91 20 113/58 L 92 L 09/10/18 12:00 97.9 F 88 20 100/51 L 93 L 09/10/18 10:51 98 16 09/10/18 08:41 93 L 09/10/18 08:05 97.8 F 98 20 105/55 L 93 L 09/10/18 06:51 88 16 Admit Weight 195 lb Weight 195 lb 09/09/18 09/10/18 09/11/18 06:59 06:59 06:59 Intake Total 850 1040 250 Output Total 1850 Balance -1000 1040 250 - Physical Examination General/Neuro: alert & oriented x3 Neck: no JVD present Lungs: other: (wheezing and diminished at bases) Heart: RRR Abdomen: soft Extremities: other: (No edema; TEDs) - Labs Result Diagrams: 09/10/18 11:52 09/10/18 05:04 - Assessment/Plan 1. Epistaxis 2/2 Pancytopenia - stable; S/p 10 units of platelet tx today; Xarelto and ASA are on hold 2. Afib with RVR with s/p BUCKY/DCCV in 07/2018 - well controlled HR with Multaq; not on OAC or ASA 2/2 pancytopenia 3. CAD with hx of CABG in 2010 - stable 4. HTN - stable 5. Lung Ca 6. COPD 7. Hx of PE MAR reviewed Pt. seen and eval. by me. I agree with the A/P by the FOOD SERVICE ASSOCIATE. Overall cardiac status is stable. RRR, mild left lower leg edema. Decreased BS on right. Review of Systems - Review of Systems Constitutional: reports: no symptoms reported EENTM: reports: no symptoms reported Respiratory: reports: see HPI Cardiac (ROS): reports: see HPI ABD/GI: reports: no symptoms reported : reports: no symptoms reported
[2018-09-10] MEDS: Aspirin 81 mg Enteric Coated Tablet PO SCH (20:16)
[2018-09-10] MEDS: Atorvastatin Calcium 40 MG TAB PO SCH (20:18)
[2018-09-11] MEDS: Mometasone/Formoterol 120 PUFF INHALER INH SCH ×2 (06:36→19:13)
[2018-09-11] MEDS: predniSONE 5 MG TAB PO SCH (07:46)
[2018-09-11] MEDS: Gabapentin 300 MG CAP PO SCH ×3 (07:46→20:21)
[2018-09-11] MEDS: metFORMIN 850 MG TAB PO SCH ×4 (07:46→17:43)
[2018-09-11] MEDS: ROFLUMILAST 250 MCG PO SCH (07:47)
[2018-09-11] MEDS: Dronedarone HCl 400 MG TAB PO SCH ×2 (07:47→17:43)
[2018-09-11] MEDS: Furosemide 40 MG TAB PO SCH (07:47)
[2018-09-11] MEDS: Metoprolol Tartrate 25 MG TAB PO SCH ×2 (07:47→20:22)
[2018-09-11] MEDS: Digoxin 0.25 MG TAB PO SCH (07:47)
[2018-09-11] MEDS: Sodium Chloride 0.65% Nasal 44 ML BOT EA NARE SCH ×3 (07:48→20:24)
[2018-09-11 08:21] LABS: #Lymphocytes 0.4 thou/uL (1.20-3.40); #Monocytes 0.1 thou/uL (0.11-0.59); %Eosinophils 1.7 % (0.0-10.0); %Lymphocytes 23.5 % (21.0-51.0); %Monocytes 8.7 % (0.0-10.0); Hemoglobin 7.1 g/dL (14.0-18.0); Mean Corpuscular HGB CONC 33.7 g/dL (32.0-36.0); Mean Corpuscular Hemoglobin 30.3 pg (27.0-31.0); Mean Corpuscular Volume 89.7 fL (78.0-98.0); Mean Platelet Volume 8.8 fL (7.4-10.4); Platelet Count 59 thou/uL (130-400); RBC Distribution Width 15.1 % (11.5-14.5); Red Blood Cell (RBC) Count 2.36 mill/uL (4.70-6.10); White Blood Cell (WBC) Count 1.6 thou/uL (4.8-10.8)
[2018-09-11 08:37] LABS: Anion Gap 16 mmol/L (10-20); BUN (Urea Nitrogen) 33 mg/dL (8.4-25.7); Calc. Creatinine Clearance 68 mL/min (70-130); Calcium 8.3 mg/dL (7.8-10.44); Carbon Dioxide 26 mmol/L (23-31); Chloride 95 mmol/L (98-107); Estimated GFR-MDRD 57; Glucose 186 mg/dL (83-110); Potassium 4.6 mmol/L (3.5-5.1); Sodium 132 mmol/L (136-145)
--- NOTE | 2018-09-11 10:08 | CON ---
DATE OF CONSULTATION: 09/09/2018 ADDENDUM: INDICATION FOR CONSULTATION: A 73-year-old patient who is well known to me, has long history of coronary artery disease and bypass surgery, also had atrial fibrillation. He recently had a cardioversion of the atrial fibrillation back to sinus rhythm. He was placed on Multaq and was on this medication for a while. He is also on Xarelto due to his history of atrial fibrillation as well as having history of DVTs and pulmonary emboli. He has a history of metastatic lung cancer for which he has been treated by [facility]. He is on a new regimen at this time. He has bronchogenic carcinoma. He has been struggling with this sometime, also has end-stage COPD. Unfortunately for him, he continues to work some and tries to make the best of the situation. He has had several times radiation for his lung cancer. At this time, he presented to the hospital after having epistaxis, which did not resolve. He said he has lost a significant amount of blood when he arrived to the emergency room and it does appear that he did have hemoglobin of 7.8 and previously was around 10, so he did have quite significant epistaxis. He also was found to have thrombocytopenia. At home, he takes Xarelto as well as aspirin and has also been taking nonsteroidals in the form of ibuprofen and most likely this is the etiology of the significant epistaxis, which did not respond to the usual regimen of holding pressure. He does not usually have significant epistaxis in the past. There has been no significant strong history for this in the patient. At this time, his Xarelto was on hold, but hopefully we will be able to resume the medication. He denies any cardiac complaints or problems at this time and it does seem he is still is in a regular rate and rhythm at this time. We will leave this up to the discretion of Dr. Thompson as to when to resume his Xarelto, whether or not his new chemotherapy is playing a role on this. It is quite possible with the thrombocytopenia. PAST MEDICAL HISTORY: Please refer to the notes dictated by my nurse practitioner, Kiki Azevedo. SOCIAL HISTORY: Please refer to the notes dictated by my nurse practitioner, María Elena Azevedo. FAMILY HISTORY: Please refer to the notes dictated by my nurse practitioner, María Elena Azevedo. REVIEW OF SYSTEMS: Please refer to the notes dictated by my nurse practitioner, María Elena Azevedo. ALLERGIES: PLEASE REFER TO THE NOTES DICTATED BY MY NURSE PRACTITIONER, MARÍA ELENA AZEVEDO. MEDICATIONS: Please refer to the notes dictated by my nurse practitioner, María Elena Azevedo. We have discussed the patient in detail and I would agree with her assessment. PHYSICAL EXAMINATION: GENERAL: Reveals an elderly gentleman, in no acute distress at this time. VITAL SIGNS: Relatively stable. O2 saturations are 96% on 2 L. He is afebrile. Blood pressure is 123/58. HEENT: Unremarkable. CHEST: Shows decreased breath sounds in the lower 1/3 of the left chest area. He has a regular rate and rhythm with occasional ectopy. ABDOMEN: Shows obesity with positive bowel sounds. EXTREMITIES: Some lower extremity edema involving the left lower extremity. The right lower extremity has no significant edema. NEUROLOGICALLY: The patient appears to be intact. IMPRESSION: 1. Epistaxis of significant amount, most likely due to his thrombocytopenia. 2. Anemia associated with the blood loss, but at this time, we will hold Xarelto and consider in the future whether or not to hold his aspirin as well as nonsteroidals. 3. History of coronary artery disease. This appears to be stable at this time. 4. History of atrial fibrillation for which he underwent successful cardioversion just a couple months ago and he remains on Multaq. Hopefully, we can continue this medication without problems. 5. History of recurrent lung cancer and bronchogenic carcinoma for which he is being followed at [facility]. He has had an upper lobectomy in the past on the left side as well as radiation chemotherapy. 6. Diabetes. This will be dealt with by the primary care service. 7. Chronic kidney disease. We will continue to monitor the patient with you very carefully. Obviously, his long-term prognosis is not good, but we will continue to treat him symptomatically and supportively. With his lower extremity edema on the left side, we will suggest he wear some MARILYN hose and keep the legs elevated, if possible. Job ID: [id number]
[2018-09-11] MEDS ORDERED: predniSONE 20 MG TAB PO SCH (10:30)
--- NOTE | 2018-09-11 12:31 | PRG ---
DATE OF SERVICE: 09/11/2018 SUBJECTIVE: This morning, he is better. He is less short of breath, but he is still coughing. OBJECTIVE: VITAL SIGNS: Sats are 96% on 2 L, respiratory rate , temperature 97, and blood pressure 107/56. CHEST: Decreased breath sounds. No wheezing. CARDIAC: Normal S1 and S2. No gallops. ABDOMEN: No masses. LABORATORY DATA: H and H are 7 and 21, platelet count has improved to 59. Creatinine 1.2. IMPRESSION: 1. Status post epistaxis secondary to severe thrombocytopenia. 2. Bronchogenic carcinoma, metastatic on chemotherapy. 3. Left-sided infiltrate, effusion. PLAN: I will increase the prednisone to 20. Probably, we will transfuse unit of packed cells today. Otherwise, supportive care, PT. ENT consultation for his epistaxis. We will follow. Job ID: [id number]
--- NOTE | 2018-09-11 12:59 | PDOC.CTH ---
Cardiology Progress Note - Subjective The pt seen and examined. No overnight events. No cardiac complaints, except SOB. - Objective Vital Signs Temp Pulse Pulse Resp BP BP BP 09/11/18 12:02 98 F 98 18 121/57 L 09/11/18 11:25 98.1 F 93 22 H 112/59 L 09/11/18 11:13 98.1 F 93 22 H 112/59 L 09/11/18 10:28 100 16 09/11/18 08:00 09/11/18 07:54 97.2 F L 93 22 H 107/53 L 09/11/18 06:36 100 14 Pulse Ox 09/11/18 12:02 09/11/18 11:25 09/11/18 11:13 93 L 09/11/18 10:28 09/11/18 08:00 96 09/11/18 07:54 96 09/11/18 06:36 Admit Weight 195 lb Weight 195 lb 09/10/18 09/11/18 09/12/18 06:59 06:59 06:59 Intake Total 1040 250 0 Balance 1040 250 0 - Physical Examination General/Neuro: alert & oriented x3 Neck: no JVD present Lungs: other: (diminished at bases and wheezing) Heart: RRR Abdomen: soft Extremities: other: (1-2+ pitting BLE edema) - Labs Result Diagrams: 09/11/18 08:00 09/11/18 08:00 - Assessment/Plan 1. Epistaxis 2/2 Pancytopenia - stable; S/p 10 units of platelet tx; Xarelto and ASA are on hold; possible ENT consult 2. Afib with RVR with s/p BUCKY/DCCV in 07/2018 - well controlled HR with Multaq; not on OAC or ASA 2/2 pancytopenia 3. CAD with hx of CABG in 2010 - stable 4. HTN - stable 5. Lung Ca 6. COPD 7. Hx of PE MAR reviewed Pt. seen and eval. by me. I agree with the A/P by the delivery driver/customer service. His cardiac status is stable. I will sign off. if any new cardiac issues please consult me again. thank you. gjm Review of Systems - Review of Systems Constitutional: reports: weakness EENTM: reports: no symptoms reported Respiratory: reports: see HPI Cardiac (ROS): reports: no symptoms reported ABD/GI: reports: no symptoms reported : reports: no symptoms reported
[2018-09-11 13:15] VITALS: BMI 27.9
--- NOTE | 2018-09-11 16:53 | PRG ---
DATE OF SERVICE: 09/11/2018 SUBJECTIVE: The patient still feels generally weak, still has some dyspnea even getting up and going to the bathroom. He is not having significant persistent bleeding from his nose, little bit of pink fluid when he dabs his nose. OBJECTIVE: VITAL SIGNS: Temperature 97.9, pulse is 90, respirations 18, O2 saturation 93% on 2 L, and BP 127/67. GENERAL APPEARANCE: Age-appropriate male, in no distress. Slightly pale. Awake, alert, oriented, pleasant, cooperative. HEENT: Some persistent blood in the left anterior chamber of the nostril. No acute lesions. HEART: Regular rate and rhythm without murmurs. LUNGS: Clear to auscultation on the right. On the left, he has some more bronchial type breath sounds superiorly. ABDOMEN: Soft, nontender. EXTREMITIES: No significant edema. LABORATORY DATA: White count 1.6, hemoglobin 7.1, platelets 59. Sodium 132, potassium 4.6, chloride 95, CO2 of 26, BUN 33, creatinine is 1.24, and glucose 186. IMPRESSION AND PLAN: 1. Epistaxis largely resolved, holding Xarelto and aspirin. ENT consult today after discussion with Dr. Thompson. 2. Anemia, picture of pancytopenia. We will transfuse one unit. 3. Pancytopenia secondary to chemotherapy and treating lung cancer. 4. Chronic kidney disease stage 3, stable. 5. Chronic obstructive pulmonary disease. Continue with steroids. The patient reports some cough, which is likely result of the lung cancer and chemotherapy; however, discussed with Dr. Thompson, we will increase his prednisone to 20 mg a day. 6. History of pulmonary embolism, holding Xarelto due to the patient's epistaxis and anemia. 7. Coronary artery disease, stable. Holding aspirin due to the epistaxis and anemia. 8. Lung cancer followed at [facility], status post chemo. 9. Hypertension, stable. 10. Disposition: Anticipated possibly discharging the patient today; however, they talk to their oncologist at [facility] and would prefer to stay another day or two until we can assure that the blood cell counts are rebounding. Job ID: [id number]
[2018-09-11] MEDS: Aspirin 81 mg Enteric Coated Tablet PO SCH (20:19)
[2018-09-11] MEDS: Atorvastatin Calcium 40 MG TAB PO SCH (20:20)
--- NOTE | 2018-09-11 20:42 | PRG ---
DATE OF SERVICE: SUBJECTIVE: Mr. Barbosa was admitted in the oncology sigala due to severe nosebleed and a platelet count of less than 30 and had been unable to stop the nosebleed until platelet count has since risen to currently 56. He is also receiving transfusion due to low hemoglobin. Has metastatic lung cancer currently and being treated by Oncology. Overall, feels better now that the nosebleed has stopped. OBJECTIVE: GENERAL: The patient is well developed, well nourished. He is in no acute distress at this time. VITAL SIGNS: Stable. HEENT: There is no active bleeding. Upon inspection of the nose using a flexible scope, right side nasal passage showed multiple clots within the nasal passage, however, no active bleeding. Right side some clots though unsure if this is the active site or just residual coming over from the left side. Did not advance scope beyond the nasal area due to fear of fracturing some of the clots and starting new bleeding. However, did look in back of throat through mouth with the scope, there was no active bleeding currently seen. Therefore, it appears that the epistaxis is currently under state of hemostasis. ASSESSMENT: 1. Metastatic lung cancer. 2. Epistaxis, right sided only versus bilateral. PLAN: 1. Continue with blood transfusion therapy as directed by Oncology staff. 2. Continue with humidified oxygen. 3. If active bleeding occurs, use of Afrin is encouraged along with using saline nasals to keep nose moist. 4. Follow up with Ear, Nose, and Throat upon discharge. Job ID: [id number]
[2018-09-12 05:55] LABS: #Lymphocytes 0.3 thou/uL (1.20-3.40); #Monocytes 0.2 thou/uL (0.11-0.59); %Eosinophils 1.4 % (0.0-10.0); %Lymphocytes 21.1 % (21.0-51.0); %Monocytes 11.2 % (0.0-10.0); %Neutrophils 66.3 % (42.0-75.0); Hemoglobin 7.1 g/dL (14.0-18.0); Mean Corpuscular HGB CONC 33.7 g/dL (32.0-36.0); Mean Corpuscular Hemoglobin 30.1 pg (27.0-31.0); Mean Corpuscular Volume 89.3 fL (78.0-98.0); Mean Platelet Volume 8.5 fL (7.4-10.4); Platelet Count 44 thou/uL (130-400); RBC Distribution Width 14.7 % (11.5-14.5); Red Blood Cell (RBC) Count 2.35 mill/uL (4.70-6.10); White Blood Cell (WBC) Count 1.5 thou/uL (4.8-10.8)
[2018-09-12 06:02] LABS: Anion Gap 10 mmol/L (10-20); BUN (Urea Nitrogen) 33 mg/dL (8.4-25.7); Calc. Creatinine Clearance 71 mL/min (70-130); Calcium 8.6 mg/dL (7.8-10.44); Carbon Dioxide 29 mmol/L (23-31); Chloride 99 mmol/L (98-107); Estimated GFR-MDRD 60; Glucose 131 mg/dL (83-110); Potassium 4.1 mmol/L (3.5-5.1); Sodium 134 mmol/L (136-145)
[2018-09-12] MEDS: Mometasone/Formoterol 120 PUFF INHALER INH SCH ×2 (07:20→18:12)
[2018-09-12] MEDS: Metoprolol Tartrate 25 MG TAB PO SCH ×2 (08:20→20:54)
[2018-09-12] MEDS: ROFLUMILAST 250 MCG PO SCH (08:20)
[2018-09-12] MEDS: Digoxin 0.25 MG TAB PO SCH (08:20)
[2018-09-12] MEDS: metFORMIN 850 MG TAB PO SCH ×4 (08:20→17:50)
[2018-09-12] MEDS: Furosemide 40 MG TAB PO SCH (08:21)
[2018-09-12] MEDS: Gabapentin 300 MG CAP PO SCH ×3 (08:21→20:58)
[2018-09-12] MEDS: Dronedarone HCl 400 MG TAB PO SCH ×2 (08:21→17:49)
[2018-09-12] MEDS: predniSONE 20 MG TAB PO SCH (08:24)
[2018-09-12] MEDS: Sodium Chloride 0.65% Nasal 44 ML BOT EA NARE SCH ×3 (08:25→20:57)
--- NOTE | 2018-09-12 09:58 | PRG ---
DATE OF SERVICE: 09/12/2018 OBJECTIVE: VITAL SIGNS: This morning, saturations are 95% on 2 L, respiratory rate 18, temperature 97, blood pressure 119/58. HEENT: His left nostril blood appears to be clotted. CHEST: Decreased breath sounds. No wheezing. CARDIAC: Normal S1 and S2. ABDOMEN: Negative mass. LABORATORY DATA: White count 1.1, H and H are 7 and 21, platelet count 41,000. ASSESSMENT AND PLAN: 1. Pancytopenia, status post chemotherapy. 2. End-stage chronic obstructive pulmonary disease. 3. Bronchogenic carcinoma. 4. Congestive heart failure. 5. Disposition as per primary care physician. Pulmonary schumacher, no change in medication. He may benefit from one unit of the packed cells. Job ID: [id number]
--- NOTE | 2018-09-12 13:37 | PDOC.PN ---
- Subjective Encounter Start Date: 09/12/18 Encounter Start Time: 13:36 Subjective: No further epixtasis. Complaining of exertional dyspnea -: No fever or chest pain. - Objective Resuscitation Status - Order Detail: 09/08/18 16:19 Resuscitation Status Routine Resuscitation Status: FULL: Full Resuscitation Vital Signs & Weight: Vital Signs (12 hours) Temp Pulse Resp BP Pulse Ox 09/12/18 10:58 82 16 96 09/12/18 08:00 97.4 F L 78 18 119/58 L 95 09/12/18 07:26 76 18 93 L Weight Admit Weight 195 lb Weight 195 lb I&O: 09/11/18 09/12/18 09/13/18 06:59 06:59 06:59 Intake Total 250 1600 Balance 250 1600 Result Diagrams: 09/12/18 05:30 09/12/18 05:30 Additional Labs: Accuchecks 09/12/18 09/11/18 09/11/18 08:36 20:12 17:48 POC Glucose 150 H 174 H 277 H Phys Exam - Physical Examination Constitutional: NAD HEENT: PERRLA, moist MMs Neck: supple fair air entry with transmitted sound especialy on the left. Decreased air movement left hemothorax Cardiovascular: RRR Gastrointestinal: soft, no distention, positive bowel sounds mild R and moderate L leg edema Neurological: non-focal, moves all 4 limbs ambulant Dx/Plan (1) Acute blood loss anemia Code(s): D62 - ACUTE POSTHEMORRHAGIC ANEMIA Status: Acute Comment: Due to acute epixtasis. S/p 1 PRBC on 09/11/2018 (2) Thrombocytopenia Code(s): D69.6 - THROMBOCYTOPENIA, UNSPECIFIED Status: Acute Comment: Due to consumption from profuse epixtasis anddecreased production from Chemotherapy S/p platelet transfusion on (3) Pancytopenia Code(s): D61.818 - OTHER PANCYTOPENIA Status: Acute Comment: Due to chemotherapy and chronic illness (4) Epistaxis Code(s): R04.0 - EPISTAXIS Status: Acute Comment: Stopped. Off aspirin and xarelto (5) CKD (chronic kidney disease) stage 3, GFR 30-59 ml/min Code(s): N18.3 - CHRONIC KIDNEY DISEASE, STAGE 3 (MODERATE) Status: Acute (6) Chronic atrial fibrillation Code(s): I48.2 - CHRONIC ATRIAL FIBRILLATION Status: Acute (7) Diabetes mellitus Code(s): E11.9 - TYPE 2 DIABETES MELLITUS WITHOUT COMPLICATIONS Status: Acute (8) Chronic hypoxemic respiratory failure Code(s): J96.11 - CHRONIC RESPIRATORY FAILURE WITH HYPOXIA Status: Acute (9) CAD (coronary artery disease) Code(s): I25.10 - ATHSCL HEART DISEASE OF [place] CORONARY ARTERY W/O ANG PCTRS Status: Chronic (10) COPD (chronic obstructive pulmonary disease) Status: Chronic (11) Edema Code(s): R60.9 - EDEMA, UNSPECIFIED Status: Chronic (12) HTN (hypertension) Code(s): I10 - ESSENTIAL (PRIMARY) HYPERTENSION Status: Chronic (13) Lung cancer Code(s): C34.90 - MALIGNANT NEOPLASM OF UNSP PART OF UNSP BRONCHUS OR LUNG Status: Chronic (14) Pulmonary embolism Code(s): I26.99 - OTHER PULMONARY EMBOLISM WITHOUT ACUTE COR PULMONALE Status : Chronic - Plan Monitor H/H, WBC and platelets. -: Continue to hold aspirin andxarelto. -: Awaiting hematology re eval. -: No further transfusion for now as patient is hemodynamically stable * .
--- NOTE | 2018-09-12 14:32 | PDOC.CTH ---
Cardiology Progress Note - Subjective The pt seen and examined. No overnight events. No cardiac complaints. - Objective Vital Signs Temp Pulse Resp BP Pulse Ox 09/12/18 14:00 78 94 L 09/12/18 13:43 90 20 92 L 09/12/18 10:58 82 16 96 09/12/18 08:00 97.4 F L 78 18 119/58 L 95 09/12/18 07:26 76 18 93 L Admit Weight 195 lb Weight 195 lb 09/11/18 09/12/18 09/13/18 06:59 06:59 06:59 Intake Total 250 1600 Balance 250 1600 - Labs Result Diagrams: 09/12/18 05:30 09/12/18 05:30
[2018-09-12] MEDS: Aspirin 81 mg Enteric Coated Tablet PO SCH (20:54)
[2018-09-12] MEDS: Atorvastatin Calcium 40 MG TAB PO SCH (20:55)
[2018-09-13] MEDS: Mometasone/Formoterol 120 PUFF INHALER INH SCH (06:24)
[2018-09-13 06:30] LABS: #Lymphocytes 0.3 thou/uL (1.20-3.40); #Monocytes 0.2 thou/uL (0.11-0.59); #Neutrophils 1.3 thou/uL (1.40-6.50); %Eosinophils 1.1 % (0.0-10.0); %Lymphocytes 17.7 % (21.0-51.0); %Monocytes 9.3 % (0.0-10.0); %Neutrophils 71.9 % (42.0-75.0); Hemoglobin 7.1 g/dL (14.0-18.0); Mean Corpuscular HGB CONC 34.5 g/dL (32.0-36.0); Mean Corpuscular Hemoglobin 30.6 pg (27.0-31.0); Mean Corpuscular Volume 88.7 fL (78.0-98.0); Mean Platelet Volume 9.2 fL (7.4-10.4); Platelet Count 44 thou/uL (130-400); RBC Distribution Width 14.7 % (11.5-14.5); Red Blood Cell (RBC) Count 2.31 mill/uL (4.70-6.10); White Blood Cell (WBC) Count 1.8 thou/uL (4.8-10.8)
[2018-09-13 07:06] LABS: Anion Gap 10 mmol/L (10-20); BUN (Urea Nitrogen) 31 mg/dL (8.4-25.7); Calc. Creatinine Clearance 69 mL/min (70-130); Calcium 8.5 mg/dL (7.8-10.44); Carbon Dioxide 30 mmol/L (23-31); Chloride 99 mmol/L (98-107); Estimated GFR-MDRD 59; Glucose 120 mg/dL (83-110); Potassium 4.3 mmol/L (3.5-5.1); Sodium 135 mmol/L (136-145)
[2018-09-13] MEDS: metFORMIN 850 MG TAB PO SCH ×2 (08:16→08:20)
[2018-09-13] MEDS: Furosemide 40 MG TAB PO SCH (08:16)
[2018-09-13] MEDS: Gabapentin 300 MG CAP PO SCH (08:16)
[2018-09-13] MEDS: ROFLUMILAST 250 MCG PO SCH (08:17)
[2018-09-13] MEDS: Digoxin 0.25 MG TAB PO SCH (08:17)
[2018-09-13] MEDS: Dronedarone HCl 400 MG TAB PO SCH (08:18)
[2018-09-13] MEDS: Metoprolol Tartrate 25 MG TAB PO SCH (08:18)
[2018-09-13] MEDS: Sodium Chloride 0.65% Nasal 44 ML BOT EA NARE SCH (08:22)
[2018-09-13] MEDS: predniSONE 20 MG TAB PO SCH (08:22)
[2018-09-13 09:44] VITALS: BP 123/61; TEMP 97.5
--- NOTE | 2018-09-13 10:45 | DIS ---
DATE OF ADMISSION: 09/10/2018 DATE OF DISCHARGE: 09/13/2018 DISCHARGE DIAGNOSES: 1. Acute blood loss anemia. 2. Severe thrombocytopenia. 3. Severe pancytopenia. 4. Epistaxis. 5. Chronic hypoxemic respiratory failure, on oxygen supplementation. 6. Chronic bilateral leg edema. 7. Chronic obstructive pulmonary disease without acute exacerbation. 8. Lung cancer, recurrent on chemotherapy. 9. History of pulmonary embolism on chronic anticoagulation. 10. Chronic anticoagulation with Xarelto. 11. Type 2 diabetes mellitus. 12. Chronic atrial fibrillation. 13. Chronic kidney disease stage 3. 14. Physical deconditioning. CONSULTS: 1. Cardiology. 2. Hematology Oncology. 3. ENT. 4. Pulmonary and Critical Care. HOSPITAL COURSE: A 73-year-old male with multiple comorbidities including chronic atrial fibrillation and prior pulmonary embolism, on chronic anticoagulation with Xarelto, recurrent left lung cancer, currently undergoing chemotherapy, who was admitted due to acute onset of epistaxis. Symptoms persisted at home, hence presented to the emergency room. Epistaxis initially stopped, but however restarted and continued such that the patient was found to have severe thrombocytopenia with level dropping down to a courtney of 25. Given persistent epistaxis, the patient was transfused platelets. Symptoms subsequently stopped. The patient also was found to have acute blood loss anemia superimposed on chronic anemia with hemoglobin dropping from 9 on admission to a courtney of 7.2, and was transfused 1 unit of packed red blood cells. The patient's aspirin and Xarelto were discontinued on presentation and Hematology Oncology consult was obtained and they recommended holding of both until platelet is consistently above 50. Cardiology consult also was obtained and medications were optimized. Pulmonary and Critical Care saw the patient while he was initially admitted to the IMU. ENT also saw the patient and indeed flexible endoscopy showed multiple clots within the nasal passage, but there was no active bleeding. Hence, they did not disrupt the clot. Post transfusion of 1 unit of packed red blood cells, hemoglobin did not increase. Hemoglobin was further evaluated and monitored and did remain stable, however. WBC count was beginning to trend up from courtney of 1.5 to 1.8 on the day of discharge, while platelet and hemoglobin were stable at 44,000 and 7.1. The patient however remained asymptomatic with no further epistaxis and Hematology recommended discharge with followup with outpatient CBC followup. The patient currently is undergoing chemotherapy at [facility], was advised by the Hematology Oncologist to keep his appointment. The patient was restarted on his usual home medications with the exception of aspirin and Xarelto. PHYSICAL EXAMINATION: VITAL SIGNS: Temperature 97.9, pulse 88, respiratory rate 20, SpO2 of 95% on 2 L nasal cannula, blood pressure is 119/59. GENERAL: Comfortable, elderly male, in no obvious distress. Afebrile. Anicteric. HEENT: Normocephalic, atraumatic. Pupils are equal and reactive to light. CARDIOVASCULAR: Regular rhythm and rate with normal heart sounds. RESPIRATORY: Fair air entry bilaterally. Mildly decreased on the left with bronchial sounds. No obvious crackle was heard. GI: Obese, soft, nontender, nondistended with normal bowel sounds. EXTREMITIES: Mild to moderate bilateral leg edema noticed more on the left. NEUROLOGIC: Conscious, alert and oriented x3 with appropriate mental status. Cranial nerves 2 through 12 are intact. The patient is ambulant. FOLLOWUP: Follow up with PCP in 1 week, with ENT in 2 to 3 weeks, with Oncologist and MD Leon in 1 week. DISCHARGE CONDITION: Stable. DISCHARGE MEDICATIONS: 1. Lipitor 40 mg p.o. daily at bedtime. 2. Cholecalciferol 5000 units b.i.d. 3. Digoxin 0.25 mg p.o. daily. 4. Multaq 400 mg p.o. b.i.d. 5. Fish oil 1000 mg p.o. b.i.d. 6. Fluticasone/umeclidinium/vilanterol one inhalation daily. 7. Furosemide 40 mg p.o. daily. 8. Gabapentin 300 mg t.i.d. 9. Metformin 850 mg p.o. b.i.d. 10. Metoprolol 25 mg p.o. b.i.d. 11. Nivolumab 100 mg IV q.14 days. 12. Potassium chloride 20 mEq p.o. daily. 13. Daliresp 250 mcg p.o. daily. 14. Albuterol ipratropium 3 mL nebs q.i.d. p.r.n. 15. Prednisone 10 mg p.o. daily. TIME SPENT: This discharge took more than 39 minutes. Job ID: [id number]
--- NOTE | 2018-09-13 11:44 | PRG ---
DATE OF SERVICE: 09/13/2018 SUBJECTIVE: A 73-year-old gentleman. This morning, he is stable. No further epistaxis. OBJECTIVE: VITAL SIGNS: Sats are 90% on 2 L, respiratory rate 20, temperature 97, and blood pressure 123/61. CHEST: No wheezing or crackles. CARDIAC: Normal S1 and S2. No gallops. ABDOMEN: No masses. LABORATORY DATA: H and H are 7 and 20, white count is 1.8, platelet count is 44. ASSESSMENT: Status post epistaxis, aggravated by Xarelto. Pancytopenia, status post chemo, metastatic lung cancer, history of deep venous thrombosis, pulmonary embolism, off Xarelto for the time being. PLAN: CBC on Tuesday with H and H is less than 7. He is going to receive a unit of packed cells. He is to follow up with the oncologist in [place]. He is to follow up with Dr. Thompson regarding his pulmonary status in the next several weeks. Job ID: [id number]
== END 2018-09-13 12:16 | disposition home or self-care (01) | DRG 813 ==
LOC: ERS 10:14 → ERHOLD 14:43 → ONC 18:36 → OBSVTOIN 09-10 14:28
PROVIDERS: ADMIT Internal Medicine; ATTEND Internal Medicine
PROC: 30233R1 Transfusion of Nonautologous Platelets into Peripheral Vein, Percutaneous Approach (ICD-10-PCS; principal; 2018-09-10)
PROC: 30233N1 Transfusion of Nonautologous Red Blood Cells into Peripheral Vein, Percutaneous Approach (ICD-10-PCS; 2018-09-11)
PROC: 0CJY8ZZ Inspection of Mouth and Throat, Via Natural or Artificial Opening Endoscopic (ICD-10-PCS; 2018-09-11)
DX: D69.59 Other secondary thrombocytopenia (principal); D61.810 Antineoplastic chemotherapy induced pancytopenia; C34.90 Malignant neoplasm of unspecified part of unspecified bronchus or lung; I13.0 Hypertensive heart and chronic kidney disease with heart failure and stage 1 through stage 4 chronic kidney disease, or unspecified chronic kidney disease; J96.10 Chronic respiratory failure, unspecified whether with hypoxia or hypercapnia; I27.82 Chronic pulmonary embolism; D62 Acute posthemorrhagic anemia; I50.32 Chronic diastolic (congestive) heart failure; I25.10 Atherosclerotic heart disease of native coronary artery without angina pectoris; J44.9 Chronic obstructive pulmonary disease, unspecified; E78.5 Hyperlipidemia, unspecified; N18.3 Chronic kidney disease, stage 3 (moderate); E11.22 Type 2 diabetes mellitus with diabetic chronic kidney disease; I48.2 Chronic atrial fibrillation; T45.1X5A Adverse effect of antineoplastic and immunosuppressive drugs, initial encounter; R53.81 Other malaise; E66.9 Obesity, unspecified; Z68.28 Body mass index [BMI] 28.0-28.9, adult; I34.0 Nonrheumatic mitral (valve) insufficiency; I07.1 Rheumatic tricuspid insufficiency; I35.8 Other nonrheumatic aortic valve disorders; Z79.01 Long term (current) use of anticoagulants; Z79.899 Other long term (current) drug therapy; Z79.82 Long term (current) use of aspirin; Z79.51 Long term (current) use of inhaled steroids; Z95.1 Presence of aortocoronary bypass graft; Z87.891 Personal history of nicotine dependence; Z80.42 Family history of malignant neoplasm of prostate; Z92.21 Personal history of antineoplastic chemotherapy; Z86.718 Personal history of other venous thrombosis and embolism; Z86.19 Personal history of other infectious and parasitic diseases
CPT/HCPCS: 36415; 36416; 36430; 71045; 80048; 80053; 83735; 85025; 85379; 85610; 85730; 86850; 86900; 86901; 93005; 93970; 94640; J7512; J7620; P9016; P9035; Q0169

== ENCOUNTER 2018-09-19 13:03 | Day surgery (SDC) | payer MEDICARE, BC ==
[2018-09-19] MEDS ORDERED: Sodium Chloride 0.9% 20 ML ONE (13:18)
[2018-09-19 17:07] VITALS: BP 123/68; TEMP 97.5
== END 2018-09-19 17:07 | disposition home or self-care (01) ==
LOC: ONC/OP 13:03
PROVIDERS: ATTEND Internal Medicine Pulmonary Disease
PROC: 30233N1 Transfusion of Nonautologous Red Blood Cells into Peripheral Vein, Percutaneous Approach (ICD-10-PCS; principal; 2018-09-19)
DX: D64.9 Anemia, unspecified (principal)
CPT/HCPCS: 36430; 86850; 86900; 86901; J1642; P9016

== ENCOUNTER 2018-09-30 10:58 | Day surgery (SDC) | payer MEDICARE, BC ==
[2018-09-30 12:12] VITALS: BMI 31.4
[2018-09-30 17:21] VITALS: BP 96/55; TEMP 97.9
== END 2018-09-30 17:00 | disposition home or self-care (01) ==
LOC: ONC/OP 10:58 → ONC 11:39 → ONC/OP 17:00
PROVIDERS: ATTEND Internal Medicine Pulmonary Disease
PROC: 30233N1 Transfusion of Nonautologous Red Blood Cells into Peripheral Vein, Percutaneous Approach (ICD-10-PCS; principal; 2018-09-30)
DX: D64.9 Anemia, unspecified (principal)
CPT/HCPCS: 36430; 86850; 86900; 86901; J1642; P9016

== ENCOUNTER 2018-10-06 09:52 | Day surgery (SDC) | payer MEDICARE, BC ==
[2018-10-06] MEDS ORDERED: Sodium Chloride 0.9% 30 ML ONE (10:04)
[2018-10-06] MEDS ORDERED: Sodium Chloride 0.9% 20 ML ONE (10:38)
[2018-10-06 14:35] VITALS: BP 119/65; TEMP 98.4
== END 2018-10-06 14:35 | disposition home or self-care (01) ==
LOC: ONC/OP 09:52
PROVIDERS: ATTEND Internal Medicine Pulmonary Disease
DX: D64.9 Anemia, unspecified (principal); C34.90 Malignant neoplasm of unspecified part of unspecified bronchus or lung
CPT/HCPCS: 36430; 86850; 86900; 86901; J1642; P9016

== ENCOUNTER 2019-01-04 20:04 | Inpatient (IN) | payer MEDICARE, BC ==
[2019-01-04 20:39] LABS: #Eosinphils 0.1 thou/uL (0.0-0.7); #Lymphocytes 1.9 thou/uL (1.20-3.40); #Monocytes 1.2 thou/uL (0.11-0.59); #Neutrophils 10.2 thou/uL (1.40-6.50); %Basophils 0.2 % (0.0-1.0); %Eosinophils 0.5 % (0.0-10.0); %Lymphocytes 14.4 % (21.0-51.0); %Monocytes 8.9 % (0.0-10.0); %Neutrophils 76.1 % (42.0-75.0); Mean Corpuscular HGB CONC 32.3 g/dL (32.0-36.0); Mean Corpuscular Hemoglobin 30.7 pg (27.0-31.0); Mean Corpuscular Volume 95.1 fL (78.0-98.0); Mean Platelet Volume 6.4 fL (7.4-10.4); Platelet Count 368 thou/uL (130-400); RBC Distribution Width 16.2 % (11.5-14.5); Red Blood Cell (RBC) Count 3.59 mill/uL (4.70-6.10); White Blood Cell (WBC) Count 13.4 thou/uL (4.8-10.8)
[2019-01-04 20:45] LABS: INR-International Normal Ratio 2.7; PTT 47.4 SEC (22.9-36.1); Prothrombin Time 28.6 SEC (12.0-14.7)
--- NOTE | 2019-01-04 20:49 | RAD ---
PORTABLE CHEST: HISTORY: Syncopal episode. Fall. COMPARISON: 09/09/2018 FINDINGS: Increasing opacification in the left lung since prior exam. Cardiomegaly with vascular congestion. Mediport catheter appears adequately positioned and unchanged. Review of the osseous structures shows evidence of acute left lateral rib fractures in the left mid c hest, probably involving the left lateral 4th, 5th, and 6th ribs. This may explain the increasing op acity in the left lung. IMPRESSION: 1. Evidence of acute left lateral rib fractures. 2. Increasing opacification in the left lung base, as described. POS: AGW
[2019-01-04 21:00] LABS: ALT (SGPT) 39 U/L (8-55); AST (SGOT) 43 U/L (5-34); Alkaline Phosphatase 94 U/L (40-150); Anion Gap 22 mmol/L (10-20); BUN (Urea Nitrogen) 31 mg/dL (8.4-25.7); Bilirubin, Total 0.2 mg/dL (0.2-1.2); Calc. Creatinine Clearance 0 mL/min (70-130); Calcium 9.7 mg/dL (7.8-10.44); Carbon Dioxide 22 mmol/L (23-31); Chloride 95 mmol/L (98-107); Estimated GFR-MDRD 37; Globulin 3.7 g/dL (2.4-3.5); Glucose 159 mg/dL (83-110); Potassium 5.5 mmol/L (3.5-5.1); Protein, Total 7.7 g/dL (5.8-8.1); Sodium 133 mmol/L (136-145)
--- NOTE | 2019-01-04 21:19 | CT ---
CT CERVICAL SPINE: 01/04/2019 HISTORY: Syncope. COMPARISON: None. TECHNIQUE: Axial CT imaging at 2.5 mm intervals, through the cervical spine, with coronal and sagittal reformatt ed imaging. FINDINGS: There is a soft tissue density within the neck, on the left, at the axial level of the cricoid cartil age, measuring 3.3 cm in transverse dimension. This appearance is new when compared to a PET CT perf ormed on 06/23/2016. The craniocervical junction and cervicothoracic junction demonstrate no acute findings. There is deg enerative change at the atlantoaxial interspace. The occipital condyles, the dens, and the C1-C2 articulation appear within normal limits. There is emphysematous change within the right lung apex. The C1 ring is intact. There is no displaced fracture or evidence of dislocation. There is multilev el bilateral facet and uncovertebral osteophyte formation. No prevertebral soft tissue swelling. No significant anterolisthesis or retrolisthesis. There is disk space narrowing and posterior osteophy te formation at C5-C6. IMPRESSION: 1. Findings suspicious for a mass at the base of the neck, on the left. This is concerning for lymp hadenopathy. 2. No acute fracture or evidence of dislocation. Results were called to Dr. La at approximately 9:15 p.m. on 01/04/2019. CODE CR POS: SAI
[2019-01-04 21:21] LABS: CKMB 4.5 ng/mL (0-6.6)
--- NOTE | 2019-01-04 21:23 | RAD ---
2 views of the right humerus 01/04/2019 comparison: None HISTORY: Fall, trauma, pain FINDINGS: There is an obliquely oriented fracture at the junction of the proximal and middle third of the right humerus which appears to represent a pathologic fracture through a lytic metastatic lesion. The distal fracture fragment is displaced laterally by 4 cm and displaced proximally by 2-3 c m. Distal fracture fragment is medially angulated. IMPRESSION: Acute pathologic right humeral fracture as above.
--- NOTE | 2019-01-04 21:24 | CT ---
CT HEAD WITHOUT CONTRAST: 01/04/2019 HISTORY: Syncope. COMPARISON: None. FINDINGS: The visualized paranasal sinuses and mastoid air cells are well aerated. There is no displaced urmila rial fracture. No intracranial hemorrhage, midline shift, mass effect, or ventricular enlargement is noted. There is a hypodensity within the medial posterior left frontal lobe, superior to the frontal horn of the left lateral ventricle, a nonspecific finding. This could represent an area of prior insult or an underlying brain lesion. Recommend further evaluation with contrast enhanced brain MRI. IMPRESSION: A 1.4 cm hypodensity within the posteromedial left frontal lobe, as detailed above. Further assessme nt via follow-up brain MRI is advised. Results called to Dr. La at 9:15 p.m. on 01/04/2019. CODE CR POS: SAI
[2019-01-04] MEDS ORDERED: Morphine 4 MG/ML VIAL ONE (21:55)
[2019-01-04] MEDS ORDERED: Ondansetron PF 4 MG/2 ML Vial ONE (21:55)
[2019-01-04] MEDS ORDERED: Bacitracin Zinc Ointment 30 gm TUBE TOP SCH (22:30)
[2019-01-04] MEDS ORDERED: Acetaminophen 325 MG TAB PO PRN (23:04)
[2019-01-04] MEDS ORDERED: Ondansetron PF 4 MG/2 ML Vial IVP PRN (23:04)
[2019-01-04] MEDS ORDERED: Ondansetron ODT 4 MG TAB SL PRN (23:04)
[2019-01-04] MEDS ORDERED: Morphine 4 MG/ML VIAL SLOW IVP SCH (23:45)
[2019-01-05 00:01] VITALS: BMI 32.2
[2019-01-05 00:57] LABS: Troponin I 0.124 ng/mL (< 0.028)
[2019-01-05] MEDS ORDERED: Docusate 100 MG CAP PO PRN (01:34)
[2019-01-05] MEDS ORDERED: Dextrose 5% in Water 1,000 ML IV PRN (01:35)
[2019-01-05] MEDS ORDERED: Dextrose 50% Abboject 50 ML SYRINGE SLOW IVP PRN (01:35)
[2019-01-05] MEDS ORDERED: Ibuprofen 200 MG TAB PO PRN (01:44)
[2019-01-05] MEDS ORDERED: ATEZOLIZUMAB IV SCH (02:00)
[2019-01-05] MEDS: HYDROcodone/Acetaminophen 5/325 mg Tablet PO PRN ×3 (02:51→20:47)
[2019-01-05] MEDS: Morphine 2 MG/ML SYRINGE SLOW IVP PRN ×5 (03:11→17:57)
[2019-01-05 03:19] LABS: #Lymphocytes 1.1 thou/uL (1.20-3.40); #Monocytes 1.4 thou/uL (0.11-0.59); #Neutrophils 11.2 thou/uL (1.40-6.50); %Eosinophils 0.3 % (0.0-10.0); %Lymphocytes 7.8 % (21.0-51.0); %Monocytes 10.2 % (0.0-10.0); %Neutrophils 81.7 % (42.0-75.0); Hemoglobin 10.4 g/dL (14.0-18.0); Mean Corpuscular HGB CONC 32.4 g/dL (32.0-36.0); Mean Corpuscular Hemoglobin 30.7 pg (27.0-31.0); Mean Corpuscular Volume 94.7 fL (78.0-98.0); Mean Platelet Volume 6.4 fL (7.4-10.4); Platelet Count 334 thou/uL (130-400); RBC Distribution Width 16.1 % (11.5-14.5); Red Blood Cell (RBC) Count 3.37 mill/uL (4.70-6.10); White Blood Cell (WBC) Count 13.7 thou/uL (4.8-10.8)
[2019-01-05 03:45] LABS: Troponin I 0.094 ng/mL (< 0.028)
[2019-01-05 03:50] LABS: Anion Gap 14 mmol/L (10-20); BUN (Urea Nitrogen) 32 mg/dL (8.4-25.7); Calc. Creatinine Clearance 58 mL/min (70-130); Calcium 9.4 mg/dL (7.8-10.44); Carbon Dioxide 29 mmol/L (23-31); Chloride 95 mmol/L (98-107); Estimated GFR-MDRD 44; Glucose 159 mg/dL (83-110); Potassium 5.6 mmol/L (3.5-5.1); Sodium 132 mmol/L (136-145)
--- NOTE | 2019-01-05 08:01 | HP ---
PRIMARY CARE DOCTOR: Teodoro Carpio MD. CODE STATUS: Full code. TIME OF EVALUATION: 12:30 a.m. CHIEF COMPLAINT: Syncope. HISTORY OF PRESENT ILLNESS: This is a 73-year-old male patient, with past medical history of multiple comorbidities, including coronary artery disease, hyperlipidemia, hypertension, COPD, chronic hypoxic respiratory failure with home oxygen, lung cancer with mets to bone, came to the hospital after having an episode of syncope. The patient does not recall what happened. He just passed out and the next thing that he realized he was in the ambulance. The is saying that the loss of consciousness lasted for about 5 minutes, it was severe. He has never had an episode like this. No clear triggers, no alleviating factors. The patient has a fracture due to the fall and some lacerations in the face. REVIEW OF SYSTEMS: CONSTITUTIONAL: No fever or chills. The patient has generalized weakness. RESPIRATORY: The patient has some cough and shortness of breath due to the lung cancer. CARDIOVASCULAR: No chest pain or palpitation. GASTROINTESTINAL: No nausea, no vomiting, diarrhea, or abdominal pain. DISTRIBUTION ASSOCIATE: The patient has syncope and dizziness. No headache. The patient was feeling lightheaded. GENITOURINARY: No burning on urination. EXTREMITIES: No leg swelling. All other systems were reviewed and negative except for the findings mentioned above. PAST MEDICAL HISTORY: Includes hyperlipidemia, cholesterol, hypertension, COPD , and the other entities mentioned in the HPI. PAST SURGICAL HISTORY: CABG, left upper lobe lobectomy. FAMILY HISTORY:Reviewed and non contributory for current presentation. PSYCHIATRIC HISTORY: No previous psych history. SOCIAL HISTORY: The patient drinks everyday. The patient quit smoking less than 10 years ago. Former tobacco user. No drug use. KNOWN ALLERGIES: No known drug allergies. REPORTED MEDICATIONS: 1. Atorvastatin. 2. Metoprolol. 3. Xarelto. 4. Gabapentin. 5. Furosemide. 6. Digoxin. 7. Daliresp. 8. Multaq. 9. Prednisone. 10. Metformin. 11. Hydrocodone. 12. Acetaminophen. 13. Trelegy Ellipta. PHYSICAL EXAMINATION: VITAL SIGNS: On presentation, blood pressure 129/65 with heart rate 93, respiratory rate was 24, temperature 99, pain 7/10, oxygen saturation was 100 on non- rebreather mask at the time of the presentation here. GENERAL: The patient is alert, oriented, in mild distress due to the fall with shortness of breath and lung cancer. HEENT: Normal conjunctivae. Moist oral mucosa. Anicteric. No JVD. The patient has a superficial V-shaped laceration on the bridge of the nose. Mild bleeding. Normocephalic. RESPIRATORY: Bilateral air entry is decreased. The patient has scattered rales. No wheezing. Symmetric expansion. CARDIOVASCULAR: Normal rate, regular rhythm. No murmurs. No gallop. No edema. ABDOMEN: Soft. Normal bowel sounds. MUSCULOSKELETAL: Baseline range of motion and strength except for the right humerus that seems to have fracture. Severe pain after the fall. SKIN: Warm, intact. No pallor, no rash, no redness except for the lacerations on the face. Capillary refill seems to be intact. The patient seems to have chronic venous access in bilateral lower extremities. NEURO: No evidence of any new focal weakness. Cranial nerves seems to be intact. PSYCH: The patient is in good mood. No anxiety. Optimal judgment. IMAGING STUDIES: EKG was reviewed. The patient has sinus tachycardia at the rate of 104 with some PVCs. Incomplete RBBB. RADIOLOGY: 1. Head CT without contrast, new metastatic tumor, posterior temporal lobe. 2. Cervical spine CT shows possible nonmetastatic tumor. See full report. Upper extremity, displaced pathological fracture of the mid right humerus. Medications given in the ER are triple antibiotics, topical ointment, morphine, Zofran. LABORATORY DATA: Reviewed. The patient has a white count of 13.4, hemoglobin 11, MCV 95.1, platelet count 368. Coagulation; PT 28.6, INR 2.7, and PTT 47.4. Chemistry; sodium 133, potassium 5.5, chloride 95, carbon dioxide 22, anion gap 22, BUN 31, creatinine 1.81, and previous admission was 1.22 that is the patient's baseline. GFR 37, glucose 159, calcium 9.7, total bilirubin 0.2. LFTs were negative. Troponin 0.124. Serum total protein 7.7, albumin to globulin ratio 1.1. ASSESSMENT AND PLAN: The patient will be placed in the hospital with following medical problems; 1. Syncope. We will do echo, we will do carotid Doppler. We will monitor on tele, unclear etiology. As noted, the patient has a new tumor in the brain that is metastatic; however, this most likely is not the reason. 2. He has pathological fracture of the humerus. We will treat symptomatically. 3. New brain metastases. This is not likely the reason for the current presentation. The patient is following with MD Leon for lung cancer. 4. Metastatic lung cancer, stage IV, with new brain metastases, following with MD Leon as mentioned above. 5. Leukocytosis of 13.4. This is likely secondary to acute distress. No evidence of sepsis. We will monitor and treat accordingly. 6. Chronic normocytic anemia. This is likely secondary to the history of cancer and chronic disease. We will monitor this, it is stable, follows as outpatient. 7. The patient is on chronic anticoagulation. The patient is in atrial fibrillation. He is on Xarelto, but we will continue for now. No evidence of bleeding at this point. 8. Hyponatremia with sodium 133. We will monitor, this is mild, no need for any acute intervention. We will replace lytes as needed. 9. Hyperkalemia of 5.5, this is minimal, could be secondary to acute kidney failure. We will hydrate, we will monitor and treat accordingly. 10. Anion gap metabolic acidosis, likely secondary to acute kidney injury. We will hydrate him. We will monitor. 11. Acute kidney injury. On presentation, the creatinine was 1.8. On previous admission, it was 1.2. We will hydrate, we will monitor if not improving. Might need Nephrology evaluation. 12. Uncontrolled diabetes with glucose of 159. We will place the patient on sliding scale for optimal control as inpatient. 13. Mildly elevated troponin, 0.124. This is likely [id number] myocardial infarction type 2 secondary to initial distress on presentation. We will monitor. If troponin is positive, we will consult Cardiology. 14. Deep venous thrombosis prophylaxis. 15. Hyperlipidemia. Low-cholesterol diet is advised. 16. Controlled hypertension. We will reconcile home medications. We will adjust as needed. 17. . Job ID: [id number] [id number]
--- NOTE | 2019-01-05 08:46 | ULT ---
BILATERAL CAROTID DUPLEX ULTRASOUND: HISTORY: Syncope TECHNIQUE: Grayscale, color-flow and spectral Doppler ultrasound imaging of the extracranial carotid artery syst ems was performed bilaterally. FINDINGS: There is plaque formation on both sides. The peak systolic velocity in the right ICA measures 98 cm/s with an end-diastolic velocity of 44 cm/ s and a systolic ratio of 0.97. The peak systolic velocity in the left ICA measures 81 cm/s with an end-diastolic velocity of 23 cm/s and a systolic ratio of 0.75. Flow in both vertebral arteries remains antegrade. IMPRESSION: No evidence of hemodynamically significant stenosis in either ICA
[2019-01-05] MEDS ORDERED: Loratadine 10 MG TAB PO PRN (09:00)
[2019-01-05] MEDS ORDERED: Non-Formulary Item 1 EACH (Fluticasone/Umeclidin/Vilanter [Trelegy Ellipta 100-62.5-25] 1 IH SCH (09:00)
[2019-01-05] MEDS: Mometasone 100 MCG HFA INHALER INH SCH ×2 (09:15→19:39)
[2019-01-05] MEDS: Metoprolol Tartrate 25 MG TAB PO SCH ×2 (09:42→20:47)
[2019-01-05] MEDS: predniSONE 5 MG TAB PO SCH (09:42)
[2019-01-05] MEDS: Gabapentin 300 MG CAP PO SCH ×2 (09:42→20:45)
[2019-01-05] MEDS: Dronedarone HCl 400 MG TAB PO SCH ×2 (09:43→18:06)
[2019-01-05] MEDS: Multivitamin W/ Minerals 1 TAB PO SCH (09:45)
[2019-01-05] MEDS: Furosemide 40 MG TAB PO SCH (09:47)
[2019-01-05] MEDS: Digoxin 0.125 MG TAB PO SCH (09:47)
--- NOTE | 2019-01-05 09:57 | CON ---
DATE OF CONSULTATION: 01/05/2019 REQUESTING PHYSICIAN: [facility]. CONSULTING PHYSICIAN: Rashawn Whitney MD REASON FOR CONSULTATION: Right pathological humerus fracture. HISTORY OF PRESENT ILLNESS: This is a 73-year-old male with a past medical history significant for metastatic lung cancer with metastasis to the bone. He has multiple other comorbidities including coronary artery disease, hyperlipidemia, hypertension, COPD with chronic hypoxic respiratory failure and home oxygen. He came to the hospital after having an episode of syncope. He does not recall the events of the syncopal episode. He passed out. Next thing he realizes that he was in the ambulance. This was witnessed by his . Currently at bedside, they report a diagnosis of lung cancer in 2014. He is a well known patient of Dr. Vasquez and was last seen by Dr. Vasquez approximately 2 weeks ago. He states that he knew about the metastasis to his right humerus and knew that the bone was already partially broken. Upon this fall, the fracture was complete. He is also on Eliquis and his last dose was yesterday morning. Currently at bedside, the patient is distressed secondary to discomfort. He is seated in a wheelchair, preparing for transport to carotid Doppler at this time. Majority of the history is obtained from the as the patient is not feeling well at this time. PAST MEDICAL HISTORY: Includes hyperlipidemia, hypertension, COPD, coronary artery disease, chronic hypoxic respiratory failure, and metastatic lung cancer. PAST SURGICAL HISTORY: Includes CABG and left upper lobectomy. FAMILY HISTORY: Reviewed and noncontributory. SOCIAL HISTORY: The patient is a former smoker, quit in 2010. He was smoking approximately 2 to 4 packs a day at that time. He lives at home with his . REVIEW OF SYSTEMS: A 10-point review of systems conducted and otherwise negative except for stated above. PHYSICAL EXAMINATION: VITAL SIGNS: Blood pressure 123/59, pulse of 94, respiratory rate of 18, O2 saturation of 94% on 4 L nasal cannula. GENERAL: The patient is awake and alert. He appears uncomfortable at this time. He is in pain to the right arm as well as various other locations of his body including his lungs. He is seated in a wheelchair at this time, preparing for transfer to a carotid Doppler. HEENT: The patient has multiple abrasions overlying his face, particularly on his nose. NECK: Supple. Trachea midline. The patient has nasal cannula oxygen at this time, however, breathing is nonlabored. EXTREMITIES: All 4 extremities were evaluated. Secondary to patient's underlying discomfort at this time, range of motion was not assessed on anything. There are abrasions noted to both knees as well as to his left upper extremity. On evaluation of the right lower extremity, the patient holds the arm close to the body with the elbow in full extension. He is able to move all digits. Sensation is intact distally. Capillary refill is 3 seconds. He has soft tissue swelling that is mild present throughout the entire right upper extremity. RADIOGRAPHIC DATA: Radiographic data which is reviewed including views of the right humerus demonstrate a midshaft fracture, which appears to be pathologic. This is through a lytic metastatic lesion. This is displaced laterally approximately 4 cm. Upon review of the patient's brain CT, this shows a new hypodensity within the posterior medial left frontal lobe. This was concerning for metastatic lesion. ASSESSMENT: Right midshaft pathological humerus fracture. PLAN: At this time, we will further consult with the [facility]. Due to the patient's condition and multiple comorbidities, I am not sure if the patient is a candidate for surgery at this time. Family is unsure of whether they are even interested in surgery. I have offered the patient a sling for comfort. He states he has one and is not interested in one. This is a Dr. Vasquez patient, of whom I have spoken to this morning. Dr. Whitney will be assuming care of the patient as Dr. Vasquez is out of town. We will continue to follow the patient. Job ID: [id number]
--- NOTE | 2019-01-05 11:23 | PRG ---
DATE OF SERVICE: 01/05/2019 SUBJECTIVE: I visited with Mr. Barbosa in the hospital today. He is a 73-year-old gentleman, known to me because of his metastatic lung cancer to the bone. He has been undergoing palliative radiation therapy to the right hip and also to the right humerus. Dr. Vasquez placed the patient in a sling to try and prevent pathological fracture. Unfortunately, late yesterday, he had a syncopal episode, where he passed out and then subsequently fell and hit the concrete. He woke up about 5 minutes later in the ambulance. He was brought to the hospital for workup and evaluation. Plain film x-ray confirmed that he had a pathological fracture of the right humerus. He is undergoing workup for syncope. Since he was on radiation therapy, I have visited with him today. He does report pain in his right humerus area. He is not having any headaches. He denies any seizure activity associated with the syncopal episode. He voices no other complaints. OBJECTIVE: VITAL SIGNS: Height 5 feet and 7 inches. Weight 205 pounds. Blood pressure is 123/59, pulse is 94, respirations are 18, temperature is 98.3, O2 saturation is 94% on 4 L nasal cannula. CONSTITUTIONAL: He is alert and oriented and in obvious discomfort. Karnofsky Performance Status is a 70%. EYES: Pupils equal, round, and reactive to light. Extraocular movements are intact. ENT: Oral cavity and oropharynx normal without any lesion or erythema. Palate elevates symmetrically. NECK: Supple without cervical or supraclavicular adenopathy. No thyromegaly. LUNGS: Breathing nonlabored. Distant breath sounds. Clear to auscultation. HEART: Regular rate and rhythm without murmur. He has mild bilateral pedal edema. NEUROLOGIC: Motor strength is 5/5 in the left upper extremity and both right lower extremities. Strength was not tested in the right upper extremity because of the fracture. RADIOLOGIC DATA: Plain film x-ray shows a displaced pathological fracture of the right humerus. CT scan of the head showed a 1.4 cm hypodensity deep in the left cerebrum of unknown significance. This could represent a metastatic lesion or alternatively could represent an area of previous infarct. LABORATORY DATA: CBC revealed a white blood cell count of 13,700 with hemoglobin 10.4, hematocrit 31.9, and platelet count 334,000. Chemistry group showed a sodium of 132 and potassium of 5.6. Creatinine was 1.55. Troponin was mildly elevated at 0.132. ASSESSMENT: Mr. Babrosa is a 73-year-old gentleman with known stage IV metastatic adenocarcinoma of the lung to the bone and soft tissues, who had a syncopal episode for unknown etiology. He now has a pathological fracture of the right humerus. PLAN: I have personally reviewed all of his x-rays and visited with the patient and his . The reason for his syncope is not yet clear. He is undergoing a cardiovascular workup with all the data is not yet being available. If this is negative, there is an outside chance that he could have had a subclinical seizure. I do not think the lesion in the brain by itself was sufficient to cause syncope. However, subclinical seizure could do this. Nevertheless, I think a subclinical seizure is unlikely. A subclinical seizure could occur if he had brain metastasis, which has not yet been proven. This is a concern, but the other possibility includes a past stroke. I think we need to complete his cardiac workup and make decisions from there. Dr. Whitney in Orthopedics is going to come by and see the patient to decide whether his displaced humeral fracture can be repaired surgically. At this point, radiation therapy to the humerus is on hold pending his evaluation by Dr. Whitney. I do think we need to evaluate the lesion in the brain further at the appropriate time. Ideally, we will get an MRI of the brain with and without contrast. Mr. Barbosa states that they have tried this on him in the past and he has been unable to do the MRI because of claustrophobia. If we cannot do an MRI of the brain, then we could get a CT scan of the head with and without contrast. Nevertheless, MRI is preferable. We will continue to follow him with you. We will continue to hold radiation therapy until the issue with his humerus has been decided. His brain can be scanned after the decision regarding surgery has been made also. Job ID: [id number] MTDD
[2019-01-05] MEDS: HumaLOG 300 UNITS/3 ML VIAL SC PRN ×2 (13:38→17:48)
--- NOTE | 2019-01-05 15:09 | CON ---
DATE OF CONSULTATION: 01/05/2019 PRIMARY SKEIN BLEACHER: Rebecca Dyer MD REASON FOR CONSULTATION: Syncope. HISTORY OF PRESENT ILLNESS: Mr. Barbosa is a very pleasant 73-year-old white gentleman, who comes to the hospital for syncopal spell. He was walking to his car. His and son were walking behind him, and he suddenly just collapsed to the floor, hitting his face on the ground, his nose. He is on Xarelto, so there was a lot of bleeding and he broke his nose as well. EMS got there within 10 minutes. He was already in the ambulance, and Mr. Barbosa remembers just waking up in the ambulance. He was completely normal after that. There was no postictal state. Mr. Barbosa remembers walking to the car and then passing out and then waking up in the ambulance. There was no warning. No palpitations. No lightheadedness. Currently, he feels much better. He denies any chest pain, tightness, or pressure. No shortness of breath. PAST MEDICAL HISTORY: 1. Metastatic lung cancer, metastatic to both bones and more recently to the brain. 2. History of coronary artery disease with coronary artery bypass grafting x4 in 2010. 3. History of paroxysmal atrial fibrillation, status post BUCKY and cardioversion back in June of this year. He has remained in sinus, on Multaq and Xarelto for stroke prophylaxis. 4. Left upper lobe lobectomy due to lung cancer. 5. History of pulmonary embolism. 6. Hypertension. 7. Hyperlipidemia. 8. COPD. FAMILY HISTORY: Mother with thyroid disease. Father with heart failure. Otherwise noncontributory. SOCIAL HISTORY: Quit smoking in 2010. Drinks two fingers of whiskey every night until July of this year. ALLERGIES: NO KNOWN DRUG ALLERGIES. OUTPATIENT MEDICATIONS: 1. Cannabidiol 25 mg b.i.d. 2. Tecentriq. 3. Multivitamin. 4. Ibuprofen p.r.n. 5. Docusate. 6. Cetirizine. 7. Magnesium chloride. 8. [place] p.r.n. 9. Xarelto 10 mg q.p.m. 10. Metoprolol tartrate 25 mg tablets 1-1/2 in the morning and 1 in the evening. 11. Multaq 400 mg b.i.d. 12. Digoxin 0.5 mg daily. 13. Lipitor 40 mg at bedtime. 14. Lasix 40 mg a day. 15. Trelegy Ellipta. 16. Gabapentin. 17. Prednisone 5 mg q.a.m. 18. Metformin 850 mg b.i.d. 19. Daliresp 500 mcg daily. REVIEW OF SYSTEMS: A 12-point review of systems was done and was all negative unless stated in the history of present illness. PHYSICAL EXAMINATION: VITAL SIGNS: Temperature 98.3, pulse 100, respiratory rate 16, saturating 91% on 3 L nasal cannula, blood pressure 125/59. GENERAL: Awake, alert, oriented x3. No distress. HEENT: Normocephalic. There is a very swollen nose bridge with ecchymoses and hematic residue. NECK: Supple. LUNGS: Reduced breath sounds bilaterally. CARDIOVASCULAR: S1 and S2. No S3 or S4. There is a grade 2/6 systolic murmur at the right upper sternal border. ABDOMEN: Soft. Positive bowel sounds. EXTREMITIES: Trace edema. He has a deformity in his right upper extremity consistent with his humerus fracture from his fall. SKIN: Warm and dry. LABORATORY DATA: Laboratory work was reviewed. CBC with a white count of 13, hemoglobin of 11, hematocrit of 34, and platelet count of 368. Coags, INR is 2.7. Chemistry, sodium 132, potassium is 5.6, chloride of 95, carbon dioxide of 29, anion gap 14, BUN of 32, creatinine 1.55, down from 1.81, GFR 44, glucose of 159. Troponin has been intermittent range at 0.13, 0.12, 0.09 with a normal CK-MB. Albumin was 4.0. DIAGNOSTIC DATA: EKG was reviewed. Carotid Doppler was reviewed. No evidence of hemodynamically significant stenosis on either internal carotid arteries. CT of the brain done on admission with no contrast showed a 1.4 cm hypodensity in the posterior medial left frontal lobe without evidence of intracranial hemorrhage. ASSESSMENT AND PLAN: 1. Syncope. 2. Coronary artery disease. 3. Paroxysmal atrial fibrillation, on Multaq, beta ewa, and digoxin. 4. Chronic anticoagulation with Xarelto. PLAN: 1. Certainly his presentation is cardiogenic syncope until proven otherwise. Normally would be very aggressive with this doing a heart catheterization to assess for ischemia and possibly implanting a LINQ for long-term monitoring. At this time, Mr. Barbosa wants to be conservative with this care. He would like to talk with Dr. Dyer before anything else happens, she will be back next week, I think on Tuesday. Currently, we would recommend to continue on telemetry monitoring for now. We will get an echocardiogram. He has a hard time lying flat, and we will have to get it with him sitting up on the chair. 2. As far as the need for his humerus fracture, they will attempt to do a clifford on his arm. Currently, there is no contraindication to this. However, I would like to see the echo before any of this happens. 3. We will continue monitor the patient closely. Thank you for letting me to participate in the care of your patient. We will follow. Job ID: [id number]
[2019-01-05] MEDS: Rivaroxaban 10 MG TAB PO SCH (16:48)
--- NOTE | 2019-01-05 17:38 | PDOC.EVN ---
Event Note - Event Note Event Note: Patient was seen and examined. Continue current treatment. Will add incentive spirometer
[2019-01-05] MEDS: Atorvastatin Calcium 40 MG TAB PO SCH (20:45)
[2019-01-05] MEDS: MAGNESIUM CHLORIDE 71.5 MG PO SCH (20:46)
[2019-01-06] MEDS: Morphine 2 MG/ML SYRINGE SLOW IVP PRN ×2 (05:50→08:14)
[2019-01-06 06:04] LABS: #Eosinphils 0.1 thou/uL (0.0-0.7); #Lymphocytes 0.8 thou/uL (1.20-3.40); #Monocytes 1.4 thou/uL (0.11-0.59); #Neutrophils 9.6 thou/uL (1.40-6.50); %Basophils 0.2 % (0.0-1.0); %Eosinophils 0.6 % (0.0-10.0); %Monocytes 11.5 % (0.0-10.0); %Neutrophils 80.7 % (42.0-75.0); Hemoglobin 10.5 g/dL (14.0-18.0); Mean Corpuscular HGB CONC 32.4 g/dL (32.0-36.0); Mean Corpuscular Hemoglobin 30.4 pg (27.0-31.0); Mean Platelet Volume 6.4 fL (7.4-10.4); Platelet Count 325 thou/uL (130-400); RBC Distribution Width 16.1 % (11.5-14.5); Red Blood Cell (RBC) Count 3.44 mill/uL (4.70-6.10); White Blood Cell (WBC) Count 11.9 thou/uL (4.8-10.8)
[2019-01-06 06:18] LABS: ALT (SGPT) 26 U/L (8-55); AST (SGOT) 22 U/L (5-34); Albumin 3.7 g/dL (3.4-4.8); Alkaline Phosphatase 92 U/L (40-150); Anion Gap 14 mmol/L (10-20); BUN (Urea Nitrogen) 26 mg/dL (8.4-25.7); Bilirubin, Total 0.5 mg/dL (0.2-1.2); Calc. Creatinine Clearance 73 mL/min (70-130); Calcium 9.6 mg/dL (7.8-10.44); Carbon Dioxide 30 mmol/L (23-31); Chloride 94 mmol/L (98-107); Estimated GFR-MDRD 59; Globulin 3.4 g/dL (2.4-3.5); Glucose 163 mg/dL (83-110); Magnesium 1.8 mg/dL (1.6-2.6); Potassium 4.5 mmol/L (3.5-5.1); Protein, Total 7.1 g/dL (5.8-8.1); Sodium 133 mmol/L (136-145)
[2019-01-06] MEDS: Furosemide 40 MG TAB PO SCH (08:08)
[2019-01-06] MEDS: Digoxin 0.125 MG TAB PO SCH (08:08)
[2019-01-06] MEDS: Metoprolol Tartrate 25 MG TAB PO SCH ×2 (08:09→20:33)
[2019-01-06] MEDS: Dronedarone HCl 400 MG TAB PO SCH ×2 (08:10→17:24)
[2019-01-06] MEDS: Gabapentin 300 MG CAP PO SCH ×2 (08:10→20:32)
[2019-01-06] MEDS: predniSONE 5 MG TAB PO SCH (08:11)
[2019-01-06] MEDS: Multivitamin W/ Minerals 1 TAB PO SCH ×2 (08:11→09:26)
[2019-01-06] MEDS: MAGNESIUM CHLORIDE 71.5 MG PO SCH ×3 (08:13→20:35)
[2019-01-06] MEDS: Roflumilast [Daliresp] 500 MCG PO SCH (08:14)
[2019-01-06] MEDS: Mometasone 100 MCG HFA INHALER INH SCH (08:27)
[2019-01-06] MEDS ORDERED: Morphine ER 15 MG TAB PO SCH (10:30)
[2019-01-06] MEDS: HumaLOG 300 UNITS/3 ML VIAL SC PRN ×2 (11:39→17:26)
[2019-01-06] MEDS: HYDROcodone/Acetaminophen 5/325 mg Tablet PO PRN ×3 (13:06→21:54)
[2019-01-06] MEDS ORDERED: CEFAZOLIN 2 GM in Premix Bag 1 BAG IVPB SCH (15:45)
--- NOTE | 2019-01-06 15:59 | PDOC.CTH ---
Cardiology Progress Note - Subjective Only complaint is severe right arm pain. - Objective Vital Signs Temp Pulse Resp BP Pulse Ox 01/06/19 15:49 98.1 F 81 18 98/51 L 99 01/06/19 13:48 87 16 01/06/19 13:08 103/57 L 01/06/19 11:49 98.8 F 87 18 94/51 L 97 01/06/19 08:23 80 16 01/06/19 08:08 93 01/06/19 07:48 98.3 F 93 18 111/58 L 97 01/06/19 04:00 98.0 F 95 20 120/54 L 92 L Weight 205 lb 14.588 oz 01/05/19 01/06/19 01/07/19 06:59 06:59 06:59 Intake Total 720 Output Total 800 Balance -80 - Physical Examination General/Neuro: alert & oriented x3, NAD Neck: no JVD present Lungs: CTA, unlabored respirations Heart: RRR Abdomen: NT/ND Extremities: + edema B (trace) - Telemetry Telemetry Rhythm: NSR - Labs Result Diagrams: 01/06/19 05:45 01/06/19 05:45 Troponin/CKMB CK-MB (CK-2) 4.5 ng/mL (0-6.6) 01/04/19 20:34 Troponin I 0.094 ng/mL (< 0.028) H 01/05/19 Unknown - Assessment/Plan 1. Syncope 2. CAD, stable no ACS. 3. Right arm fracture. 4. Hx of CABG 5. Metastatic lung Ca 6. Mets to the brain and bones PLAN: - Normal LV function on echo today - May proceed with right arm repair to help with pain. He is not wanting any more procedures performed until his arm is better. He is nor having angina and he is not in CHF. May proceed ,Intermediate risk for intermediate risk procedure from cardiac standpoint. Likely higher risk from pulmonary stand point.
--- NOTE | 2019-01-06 17:25 | PDOC.HOSPP ---
- Subjective Encounter Date: 01/06/19 Encounter Time: 08:31 Subjective: 73 y/o male with multiple commorbiditoies including CAD s/p CABG, atrial fib on chronic anticoagulation with xarelto, mestatastic lung cancer s/p left upper lobe lobectomy, chronic respiratory failure from COPD on oxygen admitted after a syncopal and collapse with nasal bone and right humeral pathologic fracture as well as multiple left sided rib fractures. Pain is inadequately controlled. ORIF of the right humeral fracture is planned once cleared by cardiology. - Objective Vital Signs & Weight: Vital Signs (12 hours) Temp Pulse Resp BP Pulse Ox 01/06/19 15:49 98.1 F 81 18 98/51 L 99 01/06/19 13:48 87 16 01/06/19 13:08 103/57 L 01/06/19 11:49 98.8 F 87 18 94/51 L 97 01/06/19 08:23 80 16 01/06/19 08:08 93 01/06/19 07:48 98.3 F 93 18 111/58 L 97 Weight Weight 205 lb 14.588 oz I&O: 01/05/19 01/06/19 01/07/19 06:59 06:59 06:59 Intake Total 720 Output Total 800 Balance -80 Result Diagrams: 01/06/19 05:45 01/06/19 05:45 Additional Labs: Accuchecks 01/06/19 01/06/19 01/05/19 11:12 05:42 20:35 POC Glucose 211 H 145 H 185 H ROS - Medication Medications: Active Medications Generic Name Dose Route Start Last Admin Trade Name Freq PRN Reason Stop Dose Admin Hydrocodone Bitart/Acetaminophen 1 tab 01/05/19 21:10 01/06/19 13:06 [place] 5/325 PO 1 tab Q4H PRN Administration Moderate Pain (4-6) Albuterol/Ipratropium 3 ml 01/05/19 07:00 01/06/19 13:48 Duoneb NEB 3 ml [id number] TAMMY Administration Atorvastatin Calcium 40 mg 01/05/19 21:00 01/05/19 20:45 Lipitor PO 40 mg HS TAMMY Administration Digoxin 0.125 mg 01/05/19 09:00 01/06/19 08:08 Lanoxin PO 0.125 mg DAILY TAMMY Administration Dronedarone 400 mg 01/05/19 08:00 01/06/19 08:10 Multaq PO 400 mg BID-WM TAMMY Administration Furosemide 40 mg 01/05/19 09:00 01/06/19 08:08 Lasix PO Not Given DAILY TAMMY Gabapentin 300 mg 01/05/19 09:00 01/06/19 08:10 Neurontin PO 300 mg BID TAMMY Administration Ibuprofen 200 mg 01/05/19 01:44 01/06/19 10:52 Motrin PO 200 mg Q6H PRN Administration Mild Pain (1-3) Insulin Human Lispro 0 units 01/05/19 01:35 01/06/19 11:39 Humalog SC 3 unit .MILD SLIDING SCALE PRN Administration Mild Correctional Scale Iron/Minerals/Multivitamins 1 tab 01/05/19 09:00 01/06/19 09:26 Theragran M PO Not Given DAILY TAMMY Metoprolol Tartrate 37.5 mg 01/05/19 09:00 01/06/19 08:09 Lopressor PO 37.5 mg QAM TAMMY Administration Metoprolol Tartrate 25 mg 01/05/19 21:00 01/05/19 20:47 Lopressor PO Not Given QPM TAMMY Mometasone Furoate 1 puff 01/05/19 06:30 01/06/19 08:27 Asmanex Hfa 100 Mcg INH Not Given BID-RT TAMMY Morphine Sulfate 2 mg 01/05/19 03:07 01/06/19 08:14 Morphine SLOW IVP 2 mg Q2H PRN Administration Severe Pain (7-10) Magnesium Chloride [ 0 each 01/05/19 21:00 01/06/19 15:51 Nu-Mag] 71.5 Mg PO 1 each TID TAMMY Administration Roflumilast [ 0 each 01/06/19 09:00 01/06/19 08:14 Daliresp] 500 Mcg PO 1 each DAILY TAMMY Administration Prednisone 5 mg 01/05/19 08:00 01/06/19 08:11 Prednisone PO 5 mg QAM-WM TAMMY Administration Rivaroxaban 20 mg 01/05/19 17:00 01/05/19 16:48 Xarelto PO Not Given QPM-WM TAMMY - Exam awake alert General - other findings: mild painful distress Eye: anicteric sclera ENT: moist mucosa ENT - other findings: nasal bruise noted Neck: symmetric Heart: RRR Respiratory - other findings: fair air entry bilaterally with some transmitted sound. Gastrointestinal: soft, non-distended, normal bowel sounds Extremeties - other findings: Bilateral leg edema. swelling and tenderness of right upper limb noted Neurological: CN's grossly intact, no focal deficits Psychiatric: A&O x 3 Hosp A/P (1) Pathological fracture due to metastatic bone disease Code(s): M84.50XA - PATHOLOGICAL FRACTURE IN NEOPLASTIC DISEASE, UNSP SITE, INIT Status: Acute (2) Syncope and collapse Code(s): R55 - SYNCOPE AND COLLAPSE Status: Acute (3) Elevated troponin Code(s): R74.8 - ABNORMAL LEVELS OF OTHER SERUM ENZYMES Status: Acute (4) JANN (acute kidney injury) Code(s): N17.9 - ACUTE KIDNEY FAILURE, UNSPECIFIED Status: Acute (5) Ribs, multiple fractures Code(s): S22.49XA - MULTIPLE FRACTURES OF RIBS, UNSP SIDE, INIT FOR CLOS FX Status: Acute (6) Nasal bone fracture Code(s): S02.2XXA - FRACTURE OF NASAL BONES, INIT ENCNTR FOR CLOSED FRACTURE Status: Acute (7) Humerus lesion, right Code(s): M89.9 - DISORDER OF BONE, UNSPECIFIED Status: Acute (8) Bilateral leg edema Code(s): R60.0 - LOCALIZED EDEMA Status: Acute (9) Acute traumatic pain Code(s): G89.11 - ACUTE PAIN DUE TO TRAUMA Status: Acute (10) CKD (chronic kidney disease) stage 3, GFR 30-59 ml/min Code(s): N18.3 - CHRONIC KIDNEY DISEASE, STAGE 3 (MODERATE) Status: Acute (11) Chronic atrial fibrillation Code(s): I48.2 - CHRONIC ATRIAL FIBRILLATION Status: Acute (12) Chronic hypoxemic respiratory failure Code(s): J96.11 - CHRONIC RESPIRATORY FAILURE WITH HYPOXIA Status: Acute (13) Diabetes mellitus Code(s): E11.9 - TYPE 2 DIABETES MELLITUS WITHOUT COMPLICATIONS Status: Acute (14) S/P lobectomy of lung Status: Acute (15) CAD (coronary artery disease) Code(s): I25.10 - ATHSCL HEART DISEASE OF [place] CORONARY ARTERY W/O ANG PCTRS Status: Chronic (16) COPD (chronic obstructive pulmonary disease) Status: Chronic (17) HTN (hypertension) Code(s): I10 - ESSENTIAL (PRIMARY) HYPERTENSION Status: Chronic (18) Lung cancer Code(s): C34.90 - MALIGNANT NEOPLASM OF UNSP PART OF UNSP BRONCHUS OR LUNG Status: Chronic - Plan Start MS continue Continue as needed IV morphine to get adequate pain control. Hold anticoagulation due to planned surgery Continue other supportive care. For ORIF right humerus if cleared by cardiology.
[2019-01-06] MEDS: Atorvastatin Calcium 40 MG TAB PO SCH (20:33)
[2019-01-06] MEDS: Morphine ER 15 MG TAB PO SCH (20:36)
[2019-01-07] MEDS: Morphine 2 MG/ML SYRINGE SLOW IVP PRN (03:49)
[2019-01-07] MEDS ORDERED: ceFAZolin Sodium (SDC) 2 GM/100 ML BAG ONE (08:08)
[2019-01-07] MEDS ORDERED: Phenylephrine HCL 10 MG/ML VIAL ONE (08:12)
[2019-01-07] MEDS ORDERED: Fentanyl 100 MCG/2 ML VIAL ONE (08:29)
[2019-01-07] MEDS ORDERED: TRELEGY ELLIPTA INH SCH (09:00)
[2019-01-07] MEDS ORDERED: Bupivacaine HCl 0.5%/Epinephrine 1:200,000/PF 30 ml Vial ONE (09:42)
--- NOTE | 2019-01-07 10:06 | RAD ---
EXAM: 2 views of the right humerus HISTORY: Right humerus fracture COMPARISON: 01/04/2019 FINDINGS: 2 views of the right humerus shows the patient is status post intramedullary clifford fixation o f the humeral shaft fracture. No perihardware lucency is seen. IMPRESSION: Status post fixation of humeral fracture
[2019-01-07] MEDS ORDERED: Morphine 4 MG/ML VIAL ONE (10:25)
[2019-01-07] MEDS ORDERED: Morphine 2 MG/ML SYRINGE ONE ×2 (10:41→10:52)
[2019-01-07] MEDS ORDERED: Morphine 4 MG/ML VIAL IV SCH (11:00)
--- NOTE | 2019-01-07 11:18 | OP ---
DATE OF PROCEDURE: 01/07/2019 PROCEDURE PERFORMED: Right humerus intramedullary nail. PREOPERATIVE DIAGNOSIS: Pathologic fracture of right midshaft humerus. POSTOPERATIVE DIAGNOSIS: Pathologic fracture of right midshaft humerus. COMPLICATIONS: None. ESTIMATED BLOOD LOSS: 150 mL. [employer] BPM DEVELOPER: Shikha Hartman PA-C IMPLANT: Synthes 270 mm x 11 mm humeral nail with helical blade. INDICATIONS: Mr. Barbosa is a 73-year-old male with metastatic lung cancer. He has a large tumor in the humerus. This has fractured. He has severe and chronic pain related to this. He has been indicated for intramedullary nail fixation of the humerus to hopefully relieve pain and restore the ability to use his arm. Goal of surgery is to improve quality of life. He is at risk for complications. DESCRIPTION OF PROCEDURE: Mr. Barbosa was identified in the preoperative holding area. His correct extremity was marked. He was carried to the operating room. He was positioned supine. General anesthesia was induced. A multidisciplinary time-out was performed. The right upper extremity was prepped and draped in the sterile fashion. We began the procedure with an anterior-superior approach to the shoulder. We dissected down through the subcutaneous tissues. The deltoid fascia was opened. We bluntly dissected through the deltoid into the subacromial space. We then performed a small split in the rotator cuff. At this point, we inserted a guidewire. Next, we overdrilled the guidewire. We then placed a ball-tipped guidewire from proximal to distal across the fracture site. We then reamed from an 8.5 reamer to a 12 reamer. We then inserted an 11-mm intramedullary nail. We placed a proximal screw and helical blade appropriately using x-ray for guidance. We then placed a distal Cross[place] screw using perfect [place] technique. We thoroughly irrigated with copious lavage. We then closed appropriately in layers including the rotator cuff closure. We placed a sterile dressing and the patient was taken to the recovery room in good condition. Job ID: [id number]
[2019-01-07] MEDS ORDERED: Vancomycin HCl 1 GM in Premix Bag 1 BAG IVPB SCH (11:30)
--- NOTE | 2019-01-07 13:28 | PDOC.HOSPP ---
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 Had Intramedullary nailing earlier today. Pain control is better. - Objective Vital Signs & Weight: Vital Signs (12 hours) Temp Pulse Resp BP Pulse Ox 01/07/19 11:10 92 L 01/07/19 11:07 96.9 F L 113 H 19 93/52 L 92 L 01/07/19 04:00 98.6 F 82 21 H 96/60 94 L Weight Weight 205 lb 8 oz I&O: 01/06/19 01/07/19 01/08/19 06:59 06:59 06:59 Intake Total 720 1320 Output Total 800 500 Balance -80 820 Result Diagrams: 01/06/19 05:45 01/06/19 05:45 Additional Labs: Accuchecks 01/07/19 01/07/19 01/06/19 11:23 05:49 20:38 POC Glucose 214 H 133 H 211 H 01/06/19 01/06/19 16:48 11:12 POC Glucose 270 H 211 H ROS - Medication Medications: Active Medications Generic Name Dose Route Start Last Admin Trade Name Freq PRN Reason Stop Dose Admin Hydrocodone Bitart/Acetaminophen 1 tab 01/05/19 21:10 01/06/19 21:54 [place] 5/325 PO 1 tab Q4H PRN Administration Moderate Pain (4-6) Atorvastatin Calcium 40 mg 01/05/19 21:00 01/06/19 20:33 Lipitor PO 40 mg HS TAMMY Administration Digoxin 0.125 mg 01/05/19 09:00 01/06/19 08:08 Lanoxin PO 0.125 mg DAILY TAMMY Administration Dronedarone 400 mg 01/05/19 08:00 01/06/19 17:24 Multaq PO 400 mg BID-WM TAMMY Administration Furosemide 40 mg 01/05/19 09:00 01/06/19 08:08 Lasix PO Not Given DAILY TAMMY Gabapentin 300 mg 01/05/19 09:00 01/06/19 20:32 Neurontin PO 300 mg BID TAMMY Administration Insulin Human Lispro 0 units 01/05/19 01:35 01/06/19 17:26 Humalog SC 4 unit .MILD SLIDING SCALE PRN Administration Mild Correctional Scale Iron/Minerals/Multivitamins 1 tab 01/05/19 09:00 01/06/19 09:26 Theragran M PO Not Given DAILY TAMMY Metoprolol Tartrate 37.5 mg 01/05/19 09:00 01/06/19 08:09 Lopressor PO 37.5 mg QAM TAMMY Administration Metoprolol Tartrate 25 mg 01/05/19 21:00 01/06/19 20:33 Lopressor PO 25 mg QPM TAMMY Administration Morphine Sulfate 2 mg 01/05/19 03:07 01/07/19 03:49 Morphine SLOW IVP 2 mg Q2H PRN Administration Severe Pain (7-10) Morphine Sulfate 15 mg 01/06/19 21:00 01/06/19 20:36 Ms Contin PO 15 mg Q12HR TAMMY Administration Magnesium Chloride [ 0 each 01/05/19 21:00 01/06/19 20:35 Nu-Mag] 71.5 Mg PO Not Given TID TAMMY Roflumilast [ 0 each 01/06/19 09:00 01/06/19 08:14 Daliresp] 500 Mcg PO 1 each DAILY TAMMY Administration Prednisone 5 mg 01/05/19 08:00 01/06/19 08:11 Prednisone PO 5 mg QAM-WM TAMMY Administration Rivaroxaban 20 mg 01/05/19 17:00 01/05/19 16:48 Xarelto PO Not Given QPM-WM TAMMY - Exam awake alert Eye: anicteric sclera ENT: moist mucosa ENT - other findings: nasal brusie noted Neck: supple, symmetric Heart: RRR Respiratory: no ronchi Respiratory - other findings: Diminished air movement left lung field Gastrointestinal: soft, non-tender, non-distended, normal bowel sounds Extremities: no cyanosis, 2+ LE edema Extremeties - other findings: Edema of both lower limbs and Right upper limb Neurological: CN's grossly intact, no focal deficits Psychiatric: normal affect, A&O x 3 Hosp A/P (1) Pathological fracture due to metastatic bone disease Code(s): M84.50XA - PATHOLOGICAL FRACTURE IN NEOPLASTIC DISEASE, UNSP SITE, INIT Status: Acute (2) Syncope and collapse Code(s): R55 - SYNCOPE AND COLLAPSE Status: Acute (3) Elevated troponin Code(s): R74.8 - ABNORMAL LEVELS OF OTHER SERUM ENZYMES Status: Acute (4) JANN (acute kidney injury) Code(s): N17.9 - ACUTE KIDNEY FAILURE, UNSPECIFIED Status: Acute (5) Ribs, multiple fractures Code(s): S22.49XA - MULTIPLE FRACTURES OF RIBS, UNSP SIDE, INIT FOR CLOS FX Status: Acute (6) Nasal bone fracture Code(s): S02.2XXA - FRACTURE OF NASAL BONES, INIT ENCNTR FOR CLOSED FRACTURE Status: Acute (7) Humerus lesion, right Code(s): M89.9 - DISORDER OF BONE, UNSPECIFIED Status: Acute (8) Bilateral leg edema Code(s): R60.0 - LOCALIZED EDEMA Status: Acute (9) Acute traumatic pain Code(s): G89.11 - ACUTE PAIN DUE TO TRAUMA Status: Acute (10) CKD (chronic kidney disease) stage 3, GFR 30-59 ml/min Code(s): N18.3 - CHRONIC KIDNEY DISEASE, STAGE 3 (MODERATE) Status: Acute (11) Chronic atrial fibrillation Code(s): I48.2 - CHRONIC ATRIAL FIBRILLATION Status: Acute (12) Chronic hypoxemic respiratory failure Code(s): J96.11 - CHRONIC RESPIRATORY FAILURE WITH HYPOXIA Status: Acute (13) Diabetes mellitus Code(s): E11.9 - TYPE 2 DIABETES MELLITUS WITHOUT COMPLICATIONS Status: Acute (14) S/P lobectomy of lung Status: Acute (15) CAD (coronary artery disease) Code(s): I25.10 - ATHSCL HEART DISEASE OF [place] CORONARY ARTERY W/O ANG PCTRS Status: Chronic (16) COPD (chronic obstructive pulmonary disease) Status: Chronic (17) HTN (hypertension) Code(s): I10 - ESSENTIAL (PRIMARY) HYPERTENSION Status: Chronic (18) Lung cancer Code(s): C34.90 - MALIGNANT NEOPLASM OF UNSP PART OF UNSP BRONCHUS OR LUNG Status: Chronic - Plan Continue analgesics. will restart anticoagulation once cleared by orth. Continue other supportive care including Oxygen and bronchodilators. Get CBC and BMP in the am
[2019-01-07] MEDS: Multivitamin W/ Minerals 1 TAB PO SCH (13:33)
[2019-01-07] MEDS: predniSONE 5 MG TAB PO SCH (13:33)
[2019-01-07] MEDS: Dronedarone HCl 400 MG TAB PO SCH ×2 (13:33→16:59)
[2019-01-07] MEDS: Furosemide 40 MG TAB PO SCH (13:33)
[2019-01-07] MEDS: Metoprolol Tartrate 25 MG TAB PO SCH ×2 (13:33→20:23)
[2019-01-07] MEDS: Digoxin 0.125 MG TAB PO SCH (13:33)
[2019-01-07] MEDS: Gabapentin 300 MG CAP PO SCH ×2 (13:34→20:22)
[2019-01-07] MEDS: Morphine ER 15 MG TAB PO SCH ×2 (13:34→20:22)
[2019-01-07] MEDS: MAGNESIUM CHLORIDE 71.5 MG PO SCH ×3 (13:36→20:23)
[2019-01-07] MEDS: Roflumilast [Daliresp] 500 MCG PO SCH (13:36)
[2019-01-07] MEDS ORDERED: Dexamethasone 20 MG/5 ML VIAL ONE (16:48)
[2019-01-07] MEDS ORDERED: Glycopyrrolate 0.2 MG/ML 5 ML SYRINGE ONE (16:48)
[2019-01-07] MEDS ORDERED: Rocuronium Bromide 10 MG/ML (10ML VIAL) ONE (16:48)
[2019-01-07] MEDS ORDERED: Ondansetron PF 4 MG/2 ML Vial ONE (16:48)
[2019-01-07] MEDS ORDERED: PHENYLEPHRINE-NS 100 MCG/ML 10 ML SYRINGE ONE (16:48)
[2019-01-07] MEDS: HumaLOG 300 UNITS/3 ML VIAL SC PRN (17:00)
[2019-01-07] MEDS: HYDROcodone/Acetaminophen 5/325 mg Tablet PO PRN (17:04)
--- NOTE | 2019-01-07 17:24 | PDOC.CTH ---
Cardiology Progress Note - Subjective He had his shoulder surgery this morning without issues. He denies any angina, no SOB. - Objective Vital Signs Temp Pulse Resp BP Pulse Ox 01/07/19 11:10 92 L 01/07/19 11:07 96.9 F L 113 H 19 93/52 L 92 L Weight 205 lb 8 oz 01/06/19 01/07/19 01/08/19 06:59 06:59 06:59 Intake Total 720 1320 Output Total 800 500 Balance -80 820 - Physical Examination General/Neuro: alert & oriented x3, NAD Neck: no JVD present Lungs: CTA, unlabored respirations Heart: RRR Abdomen: NT/ND Extremities: + edema B (1+) - Telemetry Telemetry Rhythm: NSR - Labs Result Diagrams: 01/06/19 05:45 01/06/19 05:45 Troponin/CKMB CK-MB (CK-2) 4.5 ng/mL (0-6.6) 01/04/19 20:34 Troponin I 0.094 ng/mL (< 0.028) H 01/05/19 Unknown - Assessment/Plan 1. Syncope 2. CAD, stable no ACS. 3. Right arm fracture s/p Edin placement. 4. Hx of CABG 5. Metastatic lung Ca 6. Mets to the brain and bones PLAN: - Normal LV function on echo yesterday. - Will need ischemic evaluation and possibly LINQ placement in the near future. - No driving or high risk activities.
[2019-01-07] MEDS ORDERED: Morphine 2 MG/ML SYRINGE SLOW IVP PRN (18:35)
[2019-01-07] MEDS: Vancomycin HCl 1.75 GM in Sodium Chloride 0.9% 500 ML IVPB SCH (20:21)
[2019-01-07] MEDS: Atorvastatin Calcium 40 MG TAB PO SCH (20:21)
[2019-01-07] MEDS: Mupirocin 2% Ointment 22 GM Tube TOP SCH (20:24)
[2019-01-08] MEDS ORDERED: Sodium Chloride 0.9% 10 ML ONE (00:24)
[2019-01-08] MEDS: Morphine 2 MG/ML SYRINGE SLOW IVP PRN (00:26)
[2019-01-08 07:16] LABS: Anion Gap 17 mmol/L (10-20); BUN (Urea Nitrogen) 25 mg/dL (8.4-25.7); Calc. Creatinine Clearance 60 mL/min (70-130); Calcium 9.9 mg/dL (7.8-10.44); Carbon Dioxide 25 mmol/L (23-31); Chloride 96 mmol/L (98-107); Estimated GFR-MDRD 47; Glucose 219 mg/dL (83-110); Potassium 5.4 mmol/L (3.5-5.1); Sodium 133 mmol/L (136-145)
[2019-01-08 07:18] LABS: #Lymphocytes 0.8 thou/uL (1.20-3.40); #Monocytes 1.6 thou/uL (0.11-0.59); %Eosinophils 0.1 % (0.0-10.0); %Lymphocytes 5.5 % (21.0-51.0); %Neutrophils 84.4 % (42.0-75.0); Hemoglobin 10.1 g/dL (14.0-18.0); Mean Corpuscular HGB CONC 31.6 g/dL (32.0-36.0); Mean Corpuscular Hemoglobin 29.5 pg (27.0-31.0); Mean Corpuscular Volume 93.3 fL (78.0-98.0); Mean Platelet Volume 6.8 fL (7.4-10.4); Platelet Count 314 thou/uL (130-400); RBC Distribution Width 16.4 % (11.5-14.5); Red Blood Cell (RBC) Count 3.43 mill/uL (4.70-6.10); White Blood Cell (WBC) Count 15.4 thou/uL (4.8-10.8)
[2019-01-08] MEDS: Digoxin 0.125 MG TAB PO SCH (09:17)
[2019-01-08] MEDS: Dronedarone HCl 400 MG TAB PO SCH ×2 (09:17→17:26)
[2019-01-08] MEDS: Gabapentin 300 MG CAP PO SCH ×2 (09:18→21:27)
[2019-01-08] MEDS: Multivitamin W/ Minerals 1 TAB PO SCH (09:18)
[2019-01-08] MEDS: predniSONE 5 MG TAB PO SCH (09:18)
[2019-01-08] MEDS: Metoprolol Tartrate 25 MG TAB PO SCH ×2 (09:19→21:27)
[2019-01-08] MEDS: Furosemide 40 MG TAB PO SCH (09:19)
[2019-01-08] MEDS: Morphine ER 15 MG TAB PO SCH ×2 (09:21→21:27)
[2019-01-08] MEDS: Roflumilast [Daliresp] 500 MCG PO SCH (09:22)
[2019-01-08] MEDS: MAGNESIUM CHLORIDE 71.5 MG PO SCH ×3 (09:22→21:29)
[2019-01-08] MEDS: HYDROcodone/Acetaminophen 5/325 mg Tablet PO PRN ×2 (09:23→17:29)
[2019-01-08] MEDS: Vancomycin HCl 1.75 GM in Sodium Chloride 0.9% 500 ML IVPB SCH ×2 (09:29→21:28)
[2019-01-08] MEDS: Mupirocin 2% Ointment 22 GM Tube TOP SCH ×2 (09:40→21:28)
[2019-01-08] MEDS: CANNABIDIOL PO SCH ×2 (09:44→09:46)
[2019-01-08] MEDS: HumaLOG 300 UNITS/3 ML VIAL SC PRN ×2 (12:18→17:27)
--- NOTE | 2019-01-08 13:12 | PDOC.PALCO ---
Palliative Care Consult - Consult Details Requesting Physician: Dr Wilson Reason for Consult: goals of care Family Members Present: - Pertinent HPI 73 year old male with lung cancer/metastasis to brain and bone who is receiving treatment at [facility]. Patient was at home and had an episode of syncope, and as per was an episode of loss of consciousness of approximately 5 minutes. Patient was transported to the emergency room for evaluation and was admitted secondary to a fracture of right humerus and lacerations. Palliative care consult for goals of care. - Pertinent PMH Hyperlipidemia, hypertension, COPD, lung cancer, O2 dependent at home, metastasis cancer to brain and bone - Social History Smoking Status: Former smoker Smoking: quit less than 1 year Alcohol Use: daily Drug Use History: none Living Situation: - Medications MAR Reviewed: Yes - Allergies Allergies/Adverse Reactions: Allergies Allergy/AdvReac Type Severity Reaction Status Date / Time No Known Allergies Allergy Verified 07/20/18 14:41 - Subjective Sitting in chair, complains of generalized pain related to fall. Patient states he is ready to go home. at bedside. - Objective Vital Signs: Vital Signs - Most Recent Temp Pulse Resp BP Pulse Ox 97.8 F 84 17 107/58 L 92 L 01/08/19 08:00 01/08/19 08:00 01/08/19 08:00 01/08/19 08:00 01/08/19 08:00 Palliative Performance Scale: 40 - Physical Exam Constitutional: NAD HEENT: moist MMs (Brusing to ocular bed, laceration to bridge of nose), EOMI Deviation from normal: Adventicious lung sounds, mildly labored respirations with conversation Cardiovascular: RRR Musculoskeletal: edema present Deviation from normal: edema pronounced to right arm, mild to lower ext Deviation from normal: Angry, depressed Deviation from normal: Brusing, laceration to nose - Problem List (1) Palliative care encounter Code(s): Z51.5 - ENCOUNTER FOR PALLIATIVE CARE Current Visit: Yes Status: Acute (2) Syncope and collapse Code(s): R55 - SYNCOPE AND COLLAPSE Current Visit: Yes Status: Acute Assessment: No further episodes of syncope since admission Comments: Discussed safety measures at home such as rising slowly, using support when standing ambulating. (3) COPD (chronic obstructive pulmonary disease) Current Visit: No Status: Chronic (4) Lung cancer Code(s): C34.90 - MALIGNANT NEOPLASM OF UNSP PART OF UNSP BRONCHUS OR LUNG Current Visit: No Status: Chronic - Plan/Recommendations Plan: Initiated conversation of chronic disease processes with patient and his . Patient states he is angry with disease process. Denied access of Palliative Care at [facility]. Discussed support offered by Palliative Care, such as family support and identifying goals for patient related to quality of life as disease process changes. *Patient desires to remain a full code *Will continue with their current plan *Information given in relation to Palliative Care and how to access in the future if needed if at [facility] or [facility]. Palliative Care will sign off, please consult us again should any further assistance arise. [50] minutes spent on this encounter with >50% of the time in counseling and coordination of care. Thank you for this very appropriate consult.
--- NOTE | 2019-01-08 13:23 | PQF ---
DATE: 01-08-19 ATTN: DR. PRASHANT Buenrostro Please exercise your independent, professional judgment in responding to the clarification form. Clinical indicators are provided on the bottom of this form for your review Please check appropriate box(s) to clarify if the following diagnosis has been ruled in or ruled out: NSTEMI [ ] Ruled in diagnosis [ ] Continue to treat [ ] Resolved [ ] Ruled out diagnosis [ x ] Other diagnosis Type 2 NSTEMI [ ] Unable to determine In addition, please specify: Present on Admission (POA): [ X ] Yes [ ] No [ ] Unable to determine For continuity of documentation, please document condition throughout progress notes and discharge summary. Thank You. CLINICAL INDICATORS - SIGNS / SYMPTOMS / LABS: H&P: MILDLY ELEVATED TROPONIN, 0.124. THIS IS LIKELY [id number] MYOCARDIAL INFARCTION TYPE 2 SECONDARY TO INITIAL DISTRESS ON PRESENTATION. TROPONIN: 01-04-19: 0.132 01-04-19: 0.124 01-05-19: 0.[address] CERDA 01-07-19: PATHOLOGICAL FRACTURE D/T METASTATIC BONE DISEASE, SYNCOPE AND COLLAPSE, ACUTE ELEVATED TROPONIN RISK FACTORS: H&P: HYPERLIPIDEMIA, CHOLESTEROL, HTN, COPD, CABG TREATMENTS: CARDIOLOGY CONSULT 01-05-19 ECHO 01-08-19 (This form is maintained as a part of the permanent medical record) 2014 [employer]. All Rights Reserved CHANNING [email or web address] Office: [phone] [email or web address]
--- NOTE | 2019-01-08 14:50 | PDOC.HOSPP ---
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 Had Intramedullary nailing 2018. Pain control is inadequate. No fever or worsening SOB. - Objective Vital Signs & Weight: Vital Signs (12 hours) Temp Pulse Resp BP BP Pulse Ox 01/08/19 13:14 78 18 01/08/19 08:00 97.8 F 84 17 107/58 L 92 L 01/08/19 04:00 98.4 F 79 20 93/53 L 99 Weight Weight 205 lb 8 oz I&O: 01/07/19 01/08/19 01/09/19 06:59 06:59 06:59 Intake Total 1320 720 Output Total 500 750 Balance 820 -30 Result Diagrams: 01/08/19 06:55 01/08/19 06:55 Additional Labs: Accuchecks 01/08/19 01/08/19 01/07/19 11:13 05:18 20:20 POC Glucose 238 H 226 H 180 H 01/07/19 16:52 POC Glucose 256 H ROS - Medication Medications: Active Medications Generic Name Dose Route Start Last Admin Trade Name Freq PRN Reason Stop Dose Admin Hydrocodone Bitart/Acetaminophen 1 tab 01/05/19 21:10 01/08/19 09:23 [place] 5/325 PO 1 tab Q4H PRN Administration Moderate Pain (4-6) Atorvastatin Calcium 40 mg 01/05/19 21:00 01/07/19 20:21 Lipitor PO 40 mg HS TAMMY Administration Digoxin 0.125 mg 01/05/19 09:00 01/08/19 09:17 Lanoxin PO 0.125 mg DAILY TAMMY Administration Dronedarone 400 mg 01/05/19 08:00 01/08/19 09:17 Multaq PO 400 mg BID-WM TAMMY Administration Furosemide 40 mg 01/05/19 09:00 01/08/19 09:19 Lasix PO 40 mg DAILY TAMMY Administration Gabapentin 300 mg 01/05/19 09:00 01/08/19 09:18 Neurontin PO 300 mg BID TAMMY Administration Vancomycin HCl 1.75 gm/ Sodium 500 mls @ 250 mls/hr 01/07/19 21:00 01/08/19 09:29 Chloride IVPB 01/08/19 21:01 500 mls Q12HR TAMMY Administration Iron/Minerals/Multivitamins 1 tab 01/05/19 09:00 01/08/19 09:18 Theragran M PO Not Given DAILY TAMMY Metoprolol Tartrate 25 mg 01/08/19 09:00 01/08/19 09:19 Lopressor PO 25 mg BID TAMMY Administration Morphine Sulfate 2 mg 01/05/19 03:07 01/08/19 00:26 Morphine SLOW IVP 2 mg Q2H PRN Administration Severe Pain (7-10) Morphine Sulfate 30 mg 01/08/19 09:00 01/08/19 09:21 Ms Contin PO 30 mg Q12HR TAMMY Administration Mupirocin 1 gm 01/07/19 21:00 01/08/19 09:40 Bactroban 2% Ointment TOP 01/10/19 21:01 1 applic BID TAMMY Administration Magnesium Chloride [ 0 each 01/05/19 21:00 01/08/19 09:22 Nu-Mag] 71.5 Mg PO 1 each TID TAMMY Administration Roflumilast [ 0 each 01/06/19 09:00 01/08/19 09:22 Daliresp] 500 Mcg PO 1 each DAILY TAMMY Administration Prednisone 5 mg 01/05/19 08:00 01/08/19 09:18 Prednisone PO 5 mg QAM-WM TAMMY Administration Rivaroxaban 20 mg 01/05/19 17:00 01/05/19 16:48 Xarelto PO Not Given QPM-WM [facility] - Exam awake alert General - other findings: mild painful distress Eye: anicteric sclera ENT: moist mucosa ENT - other findings: mild nasal bruise and bilateral infraorbital ecchymosis noted Neck: supple, symmetric Heart: irregular Respiratory: no wheezes, no ronchi Respiratory - other findings: bronchial breath sound left hemothorax. fair air movement right lung field Gastrointestinal: soft, non-distended, normal bowel sounds Extremeties - other findings: marked edema of the right upper limb. Moderate edema of both legs. Neurological: CN's grossly intact, no focal deficits Psychiatric: normal affect, A&O x 3 Hosp A/P (1) Pathological fracture due to metastatic bone disease Code(s): M84.50XA - PATHOLOGICAL FRACTURE IN NEOPLASTIC DISEASE, UNSP SITE, INIT Status: Acute (2) Syncope and collapse Code(s): R55 - SYNCOPE AND COLLAPSE Status: Acute (3) Elevated troponin Code(s): R74.8 - ABNORMAL LEVELS OF OTHER SERUM ENZYMES Status: Acute (4) JANN (acute kidney injury) Code(s): N17.9 - ACUTE KIDNEY FAILURE, UNSPECIFIED Status: Acute (5) Ribs, multiple fractures Code(s): S22.49XA - MULTIPLE FRACTURES OF RIBS, UNSP SIDE, INIT FOR CLOS FX Status: Acute (6) Nasal bone fracture Code(s): S02.2XXA - FRACTURE OF NASAL BONES, INIT ENCNTR FOR CLOSED FRACTURE Status: Acute (7) Humerus lesion, right Code(s): M89.9 - DISORDER OF BONE, UNSPECIFIED Status: Acute (8) Bilateral leg edema Code(s): R60.0 - LOCALIZED EDEMA Status: Acute (9) Acute traumatic pain Code(s): G89.11 - ACUTE PAIN DUE TO TRAUMA Status: Acute (10) CKD (chronic kidney disease) stage 3, GFR 30-59 ml/min Code(s): N18.3 - CHRONIC KIDNEY DISEASE, STAGE 3 (MODERATE) Status: Acute (11) Chronic atrial fibrillation Code(s): I48.2 - CHRONIC ATRIAL FIBRILLATION Status: Acute (12) Chronic hypoxemic respiratory failure Code(s): J96.11 - CHRONIC RESPIRATORY FAILURE WITH HYPOXIA Status: Acute (13) Diabetes mellitus Code(s): E11.9 - TYPE 2 DIABETES MELLITUS WITHOUT COMPLICATIONS Status: Acute (14) S/P lobectomy of lung Status: Acute (15) CAD (coronary artery disease) Code(s): I25.10 - ATHSCL HEART DISEASE OF [place] CORONARY ARTERY W/O ANG PCTRS Status: Chronic (16) COPD (chronic obstructive pulmonary disease) Status: Chronic (17) HTN (hypertension) Code(s): I10 - ESSENTIAL (PRIMARY) HYPERTENSION Status: Chronic (18) Lung cancer Code(s): C34.90 - MALIGNANT NEOPLASM OF UNSP PART OF UNSP BRONCHUS OR LUNG Status: Chronic (19) Hyperkalemia Code(s): E87.5 - HYPERKALEMIA Status: Acute (20) Type 2 AMI (acute myocardial infarction) Code(s): I21.A1 - MYOCARDIAL INFARCTION TYPE 2 Status: Acute - Plan Increase MS contin to 30 mg bid. continue breakthrough analgesic. give kayexalate 30 mg X 1 for hyperkalemia. Restart anticoagulation with xarelto Continue other supportive care including Oxygen and bronchodilators. elevate right upper limb as much as possible. Increase activity Get CBC and BMP in the am
--- NOTE | 2019-01-08 16:53 | PDOC.CTH ---
Cardiology Progress Note - Subjective He is doing well. Pain better controlled on his arm. - Objective Vital Signs Temp Pulse Resp BP Pulse Ox 01/08/19 13:14 78 18 01/08/19 08:00 97.8 F 84 17 107/58 L 92 L Weight 205 lb 8 oz 01/07/19 01/08/19 01/09/19 06:59 06:59 06:59 Intake Total 1320 720 Output Total 500 750 Balance 820 -30 - Physical Examination General/Neuro: alert & oriented x3, NAD Neck: no JVD present Lungs: unlabored respirations Heart: RRR Abdomen: NT/ND Extremities: + edema B (1+) - Telemetry Telemetry Rhythm: NSR - Labs Result Diagrams: 01/08/19 06:55 01/08/19 06:55 Troponin/CKMB CK-MB (CK-2) 4.5 ng/mL (0-6.6) 01/04/19 20:34 Troponin I 0.094 ng/mL (< 0.028) H 01/05/19 Unknown - Assessment/Plan 1. Syncope 2. CAD, stable no ACS. 3. Right arm fracture s/p Edin placement. 4. Hx of CABG 5. Metastatic lung Ca 6. Mets to the brain and bones PLAN: - Normal LV function. - Will need ischemic evaluation and possibly LINQ placement in the near future. - No driving or high risk activities. - He wants to wait for Dr. Dyer to return before deciding any work up for syncope. She is back Tuesday. Will follow up from a distance in the mean time.
[2019-01-08] MEDS: Rivaroxaban 10 MG TAB PO SCH (17:26)
[2019-01-08] MEDS: Mometasone 100 MCG HFA INHALER INH SCH (18:40)
[2019-01-08] MEDS: Atorvastatin Calcium 40 MG TAB PO SCH (21:27)
[2019-01-09] MEDS: Mometasone 100 MCG HFA INHALER INH SCH ×2 (07:28→19:18)
[2019-01-09] MEDS: Morphine ER 15 MG TAB PO SCH ×2 (07:53→20:51)
[2019-01-09 08:19] LABS: #Eosinphils 0.1 thou/uL (0.0-0.7); #Lymphocytes 1.2 thou/uL (1.20-3.40); #Monocytes 1.4 thou/uL (0.11-0.59); #Neutrophils 9.4 thou/uL (1.40-6.50); %Basophils 0.1 % (0.0-1.0); %Eosinophils 0.6 % (0.0-10.0); %Lymphocytes 9.6 % (21.0-51.0); %Monocytes 11.9 % (0.0-10.0); %Neutrophils 77.8 % (42.0-75.0); Hemoglobin 9.3 g/dL (14.0-18.0); Mean Corpuscular HGB CONC 33.1 g/dL (32.0-36.0); Mean Corpuscular Hemoglobin 31.1 pg (27.0-31.0); Mean Corpuscular Volume 93.8 fL (78.0-98.0); Mean Platelet Volume 6.4 fL (7.4-10.4); Platelet Count 314 thou/uL (130-400); RBC Distribution Width 16.5 % (11.5-14.5); Red Blood Cell (RBC) Count 2.98 mill/uL (4.70-6.10)
[2019-01-09 08:51] LABS: Anion Gap 13 mmol/L (10-20); BUN (Urea Nitrogen) 24 mg/dL (8.4-25.7); Calc. Creatinine Clearance 73 mL/min (70-130); Calcium 9.8 mg/dL (7.8-10.44); Carbon Dioxide 29 mmol/L (23-31); Chloride 95 mmol/L (98-107); Estimated GFR-MDRD 58; Glucose 176 mg/dL (83-110); Magnesium 1.6 mg/dL (1.6-2.6); Potassium 4.3 mmol/L (3.5-5.1); Sodium 133 mmol/L (136-145)
[2019-01-09] MEDS: Mupirocin 2% Ointment 22 GM Tube TOP SCH ×2 (09:42→20:57)
[2019-01-09] MEDS: Furosemide 40 MG TAB PO SCH (09:50)
[2019-01-09] MEDS: Digoxin 0.125 MG TAB PO SCH (09:50)
[2019-01-09] MEDS: Gabapentin 300 MG CAP PO SCH ×2 (09:50→20:53)
[2019-01-09] MEDS: Multivitamin W/ Minerals 1 TAB PO SCH (09:50)
[2019-01-09] MEDS: Dronedarone HCl 400 MG TAB PO SCH ×2 (09:51→17:47)
[2019-01-09] MEDS: predniSONE 5 MG TAB PO SCH (09:51)
[2019-01-09] MEDS: Metoprolol Tartrate 25 MG TAB PO SCH ×2 (09:52→23:40)
[2019-01-09] MEDS: MAGNESIUM CHLORIDE 71.5 MG PO SCH ×3 (09:52→20:57)
[2019-01-09] MEDS: Roflumilast [Daliresp] 500 MCG PO SCH (09:53)
[2019-01-09] MEDS ORDERED: TRELEGY ELLIPTA INH SCH (10:00)
[2019-01-09] MEDS: TRELEGY ELLIPTA INH SCH (10:00)
--- NOTE | 2019-01-09 11:43 | PDOC.HOSPP ---
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 Had Intramedullary nailing 2018. Pain control is better. No fever or worsening SOB. - Objective Vital Signs & Weight: Vital Signs (12 hours) Temp Pulse Resp BP Pulse Ox 01/09/19 09:50 80 01/09/19 07:27 80 18 96 01/09/19 03:53 98.4 F 80 16 94/55 L 93 L Weight Weight 205 lb 8 oz I&O: 01/08/19 01/09/19 01/10/19 06:59 06:59 06:59 Intake Total 720 1940 Output Total 750 750 Balance -30 1190 Result Diagrams: 01/09/19 08:06 01/09/19 08:06 Additional Labs: Accuchecks 01/09/19 01/08/19 05:39 17:06 POC Glucose 206 H 240 H ROS - Medication Medications: Active Medications Generic Name Dose Route Start Last Admin Trade Name Freq PRN Reason Stop Dose Admin Hydrocodone Bitart/Acetaminophen 1 tab 01/05/19 21:10 01/08/19 17:29 [place] 5/325 PO 1 tab Q4H PRN Administration Moderate Pain (4-6) Albuterol/Ipratropium 3 ml 01/08/19 15:00 01/09/19 10:42 Duoneb NEB Not Given QID-RT TAMMY Atorvastatin Calcium 40 mg 01/05/19 21:00 01/08/19 21:27 Lipitor PO 40 mg HS TAMMY Administration Digoxin 0.125 mg 01/05/19 09:00 01/09/19 09:50 Lanoxin PO 0.125 mg DAILY TAMMY Administration Dronedarone 400 mg 01/05/19 08:00 01/09/19 09:51 Multaq PO 400 mg BID-WM TAMMY Administration Furosemide 40 mg 01/05/19 09:00 01/09/19 09:50 Lasix PO Not Given DAILY TAMMY Gabapentin 300 mg 01/05/19 09:00 01/09/19 09:50 Neurontin PO 300 mg BID TAMMY Administration Insulin Human Lispro 0 units 01/08/19 14:47 01/08/19 17:27 Humalog SC 6 unit .AGGRESSIVE SLIDING PRN Administration Aggressive Correctional Scale Iron/Minerals/Multivitamins 1 tab 01/05/19 09:00 01/09/19 09:50 Theragran M PO Not Given DAILY TAMMY Metoprolol Tartrate 25 mg 01/08/19 09:00 01/09/19 09:52 Lopressor PO 25 mg BID TAMMY Administration Mometasone Furoate 1 puff 01/08/19 18:30 01/09/19 07:28 Asmanex Hfa 100 Mcg INH Not Given BID-RT TAMMY Morphine Sulfate 2 mg 01/05/19 03:07 01/08/19 00:26 Morphine SLOW IVP 2 mg Q2H PRN Administration Severe Pain (7-10) Morphine Sulfate 30 mg 01/08/19 09:00 01/09/19 07:53 Ms Contin PO 30 mg Q12HR TAMMY Administration Mupirocin 1 gm 01/07/19 21:00 01/09/19 09:42 Bactroban 2% Ointment TOP 01/10/19 21:01 1 applic BID TAMMY Administration Magnesium Chloride [ 0 each 01/05/19 21:00 01/09/19 09:52 Nu-Mag] 71.5 Mg PO 1 each TID TAMMY Administration Roflumilast [ 0 each 01/06/19 09:00 01/09/19 09:53 Daliresp] 500 Mcg PO 1 each DAILY TAMMY Administration Trelegy Ellipta 0 each 01/10/19 07:00 01/09/19 10:00 INH 1 each DAILY-RT TAMMY Administration Trelegy Ellipta 0 each 01/09/19 10:00 01/09/19 09:58 INH 01/09/19 12:00 1 each NOW TAMMY Administration Prednisone 5 mg 01/05/19 08:00 01/09/19 09:51 Prednisone PO 5 mg QAM-WM TAMMY Administration Rivaroxaban 20 mg 01/05/19 17:00 01/08/19 17:26 Xarelto PO 20 mg QPM-WM TAMMY Administration - Exam awake alert Eye: anicteric sclera ENT - other findings: Resolving facial bruises noted Heart: RRR, murmur present Respiratory - other findings: decreased air entry left lung field. Gastrointestinal: soft, non-tender, non-distended, normal bowel sounds Extremeties - other findings: Edema of the right upper and both lower extremities noted Neurological: CN's grossly intact, no focal deficits Psychiatric: normal affect, A&O x 3 Hosp A/P (1) Pathological fracture due to metastatic bone disease Code(s): M84.50XA - PATHOLOGICAL FRACTURE IN NEOPLASTIC DISEASE, UNSP SITE, INIT Status: Acute (2) Syncope and collapse Code(s): R55 - SYNCOPE AND COLLAPSE Status: Acute (3) Elevated troponin Code(s): R74.8 - ABNORMAL LEVELS OF OTHER SERUM ENZYMES Status: Acute (4) JANN (acute kidney injury) Code(s): N17.9 - ACUTE KIDNEY FAILURE, UNSPECIFIED Status: Acute (5) Ribs, multiple fractures Code(s): S22.49XA - MULTIPLE FRACTURES OF RIBS, UNSP SIDE, INIT FOR CLOS FX Status: Acute (6) Nasal bone fracture Code(s): S02.2XXA - FRACTURE OF NASAL BONES, INIT ENCNTR FOR CLOSED FRACTURE Status: Acute (7) Humerus lesion, right Code(s): M89.9 - DISORDER OF BONE, UNSPECIFIED Status: Acute (8) Bilateral leg edema Code(s): R60.0 - LOCALIZED EDEMA Status: Acute (9) Acute traumatic pain Code(s): G89.11 - ACUTE PAIN DUE TO TRAUMA Status: Acute (10) CKD (chronic kidney disease) stage 3, GFR 30-59 ml/min Code(s): N18.3 - CHRONIC KIDNEY DISEASE, STAGE 3 (MODERATE) Status: Acute (11) Chronic atrial fibrillation Code(s): I48.2 - CHRONIC ATRIAL FIBRILLATION Status: Acute (12) Chronic hypoxemic respiratory failure Code(s): J96.11 - CHRONIC RESPIRATORY FAILURE WITH HYPOXIA Status: Acute (13) Diabetes mellitus Code(s): E11.9 - TYPE 2 DIABETES MELLITUS WITHOUT COMPLICATIONS Status: Acute (14) S/P lobectomy of lung Status: Acute (15) CAD (coronary artery disease) Code(s): I25.10 - ATHSCL HEART DISEASE OF [place] CORONARY ARTERY W/O ANG PCTRS Status: Chronic (16) COPD (chronic obstructive pulmonary disease) Status: Chronic (17) HTN (hypertension) Code(s): I10 - ESSENTIAL (PRIMARY) HYPERTENSION Status: Chronic (18) Lung cancer Code(s): C34.90 - MALIGNANT NEOPLASM OF UNSP PART OF UNSP BRONCHUS OR LUNG Status: Chronic (19) Hyperkalemia Code(s): E87.5 - HYPERKALEMIA Status: Acute (20) Type 2 AMI (acute myocardial infarction) Code(s): I21.A1 - MYOCARDIAL INFARCTION TYPE 2 Status: Acute (21) Acute on chronic anemia Code(s): D64.9 - ANEMIA, UNSPECIFIED Status: Acute - Plan Contoinue current analgesic regimen Continue anticoagulation with xarelto Continue other supportive care including Oxygen and bronchodilators. Increase activity Awaiting Dr Dyer re evaluation Re evalaution of cardiogenic syncope PT/OT eval and treat
[2019-01-09] MEDS: HYDROcodone/Acetaminophen 5/325 mg Tablet PO PRN (12:19)
[2019-01-09] MEDS: Rivaroxaban 10 MG TAB PO SCH (17:47)
[2019-01-09] MEDS: HumaLOG 300 UNITS/3 ML VIAL SC PRN (18:10)
--- NOTE | 2019-01-09 18:44 | PDOC.CTH ---
Cardiology Progress Note - Subjective He is doing better today. Pain better controlled. - Objective Vital Signs Temp Pulse Resp BP Pulse Ox 01/09/19 17:44 97.8 F 84 18 104/55 L 95 01/09/19 12:13 97.8 F 72 20 97/56 L 97 01/09/19 09:50 80 01/09/19 07:27 80 18 96 Weight 205 lb 8 oz 01/08/19 01/09/19 01/10/19 06:59 06:59 06:59 Intake Total 720 1940 480 Output Total 750 750 Balance -30 1190 480 - Physical Examination General/Neuro: alert & oriented x3, NAD Neck: no JVD present Lungs: CTA, unlabored respirations Heart: RRR Abdomen: NT/ND Extremities: + edema B (1+) - Telemetry Telemetry Rhythm: NSR - Labs Result Diagrams: 01/09/19 08:06 01/09/19 08:06 Troponin/CKMB CK-MB (CK-2) 4.5 ng/mL (0-6.6) 01/04/19 20:34 Troponin I 0.094 ng/mL (< 0.028) H 01/05/19 Unknown - Assessment/Plan 1. Syncope 2. CAD, stable no ACS. 3. Right arm fracture s/p Dein placement. 4. Hx of CABG 5. Metastatic lung Ca 6. Mets to the brain and bones PLAN: - Normal LV function. - Will need ischemic evaluation with either stress testing vs LHC and possibly LINQ placement. - No driving or high risk activities. - Dr. Dyer will resume care tomorrow. morning.
[2019-01-09] MEDS: Atorvastatin Calcium 40 MG TAB PO SCH (20:53)
[2019-01-10] MEDS: Mometasone 100 MCG HFA INHALER INH SCH (06:57)
[2019-01-10] MEDS: predniSONE 5 MG TAB PO SCH (08:04)
[2019-01-10] MEDS: Mupirocin 2% Ointment 22 GM Tube TOP SCH ×2 (08:04→21:13)
[2019-01-10] MEDS: Morphine ER 15 MG TAB PO SCH ×2 (08:05→21:12)
[2019-01-10] MEDS: Gabapentin 300 MG CAP PO SCH ×2 (08:06→20:58)
[2019-01-10] MEDS: Metoprolol Tartrate 25 MG TAB PO SCH ×2 (08:06→20:59)
[2019-01-10] MEDS: Roflumilast [Daliresp] 500 MCG PO SCH (08:07)
[2019-01-10] MEDS: Digoxin 0.125 MG TAB PO SCH (08:07)
[2019-01-10] MEDS: MAGNESIUM CHLORIDE 71.5 MG PO SCH ×3 (08:07→21:14)
[2019-01-10] MEDS: Dronedarone HCl 400 MG TAB PO SCH ×2 (08:07→18:50)
[2019-01-10] MEDS: Multivitamin W/ Minerals 1 TAB PO SCH (08:08)
[2019-01-10] MEDS: Furosemide 40 MG TAB PO SCH (08:08)
--- NOTE | 2019-01-10 09:19 | PRG ---
DATE OF SERVICE: 01/10/2019 SUBJECTIVE: Mr. Barbosa is feeling less pain now that he has had a clifford placed in his right humerus. This was done this past Tuesday. He does have some swelling of the extremities. He is feeling some sleepiness from his pain medication, but his pain is better controlled. He voices no new complaints. OBJECTIVE: VITAL SIGNS: Height is 5 feet 7 inches, weight is 205 pounds, blood pressure is 100/59, pulse is 94, respirations are 20, temperature is 98, and O2 saturation is 94% on 3 L of O2. GENERAL: He is alert and oriented, and in no apparent distress. He is well developed and well nourished. Karnofsky performance status is a 70%. EXTREMITIES: The right upper extremity is bandaged. He does have some edema of the right upper extremity. LABORATORY DATA: CBC yesterday revealed a white blood cell count of 12,000 with a hemoglobin of 9.3, hematocrit of 28.0, and platelet count of 314,000. Chemistry group showed a sodium of 133 with a creatinine of 1.23. ASSESSMENT: 1. 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 He is status post pathological fracture of the right humerus with clifford placement. 2. Syncope, etiology unknown. PLAN: Syncope workup will be continued by Cardiology. Apparently, a Lenke type device is being considered. It is unclear to me whether this will interfere with an MRI once it is placed. I do think we need to get an MRI of the brain to evaluate the possible metastatic disease further. I did talk to Mr. Barbosa, who is agreeable, and apparently, he had an MRI attempted before at [facility] and had some difficulty with claustrophobia. Hopefully, with his pain medication, this will ease the claustrophobia and allow an MRI of the brain. We will order an MRI of the brain and proceed from there. His radiation to his humerus and right femur are currently on hold. Job ID: [id number]
[2019-01-10] MEDS: HYDROcodone/Acetaminophen 5/325 mg Tablet PO PRN (09:43)
[2019-01-10] MEDS ORDERED: ALPRAZolam 0.25 MG TAB PO SCH (10:00)
[2019-01-10] MEDS: TRELEGY ELLIPTA INH SCH (10:33)
--- NOTE | 2019-01-10 10:37 | PDOC.HOSPP ---
- Subjective Encounter Date: 01/10/19 Encounter Time: 09:35 Subjective: 73 y/o male with multiple commorbiditoies including CAD s/p CABG, atrial fib on chronic anticoagulation with xarelto, metastastic lung cancer s/p left upper lobe lobectomy, chronic respiratory failure from COPD on oxygen admitted after a syncopal and collapse with nasal bone and right humeral pathologic fracture as well as multiple left sided rib fractures. Had Intramedullary nailing 2018. Pain control is better. No fever or worsening SOB. No new problem. Re evaluated by Cardiology and radiation oncologist. - Objective Vital Signs & Weight: Vital Signs (12 hours) Temp Pulse Resp BP BP Pulse Ox 01/10/19 08:07 94 01/10/19 07:58 98 F 94 20 100/59 L 94 L 01/10/19 07:04 93 L 01/10/19 07:03 90 20 93 L 01/10/19 06:57 90 20 92 L 01/10/19 04:00 98.6 F 93 20 105/52 L 93 L 01/10/19 00:00 98.4 F 84 20 108/56 L 94 L Weight Weight 205 lb 8 oz I&O: 01/09/19 01/10/19 01/11/19 06:59 06:59 06:59 Intake Total 1940 1090 Output Total 750 650 Balance 1190 440 Result Diagrams: 01/09/19 08:06 01/09/19 08:06 Additional Labs: Accuchecks 01/10/19 01/09/19 06:32 17:57 POC Glucose 161 H 241 H ROS - Medication Medications: Active Medications Generic Name Dose Route Start Last Admin Trade Name Freq PRN Reason Stop Dose Admin Hydrocodone Bitart/Acetaminophen 1 tab 01/05/19 21:10 01/10/19 09:43 [place] 5/325 PO 1 tab Q4H PRN Administration Moderate Pain (4-6) Albuterol/Ipratropium 3 ml 01/08/19 15:00 01/10/19 10:23 Duoneb NEB Not Given QID-RT TAMMY Atorvastatin Calcium 40 mg 01/05/19 21:00 01/09/19 20:53 Lipitor PO 40 mg HS TAMMY Administration Digoxin 0.125 mg 01/05/19 09:00 01/10/19 08:07 Lanoxin PO 0.125 mg DAILY TAMMY Administration Dronedarone 400 mg 01/05/19 08:00 01/10/19 08:07 Multaq PO 400 mg BID-WM TAMMY Administration Furosemide 40 mg 01/05/19 09:00 01/10/19 08:08 Lasix PO Not Given DAILY TAMMY Gabapentin 300 mg 01/05/19 09:00 01/10/19 08:06 Neurontin PO 300 mg BID TAMMY Administration Insulin Human Lispro 0 units 01/08/19 14:47 01/09/19 18:10 Humalog SC 6 unit .AGGRESSIVE SLIDING PRN Administration Aggressive Correctional Scale Iron/Minerals/Multivitamins 1 tab 01/05/19 09:00 01/10/19 08:08 Theragran M PO Not Given DAILY [facility] Metoprolol Tartrate 25 mg 01/08/19 09:00 01/10/19 08:06 Lopressor PO 25 mg BID TAMMY Administration Morphine Sulfate 2 mg 01/05/19 03:07 01/08/19 00:26 Morphine SLOW IVP 2 mg Q2H PRN Administration Severe Pain (7-10) Morphine Sulfate 30 mg 01/08/19 09:00 01/10/19 08:05 Ms Contin PO 30 mg Q12HR TAMMY Administration Mupirocin 1 gm 01/07/19 21:00 01/10/19 08:04 Bactroban 2% Ointment TOP 01/10/19 21:01 1 applic BID TAMMY Administration Magnesium Chloride [ 0 each 01/05/19 21:00 01/10/19 08:07 Nu-Mag] 71.5 Mg PO 1 each TID TAMMY Administration Roflumilast [ 0 each 01/06/19 09:00 01/10/19 08:07 Daliresp] 500 Mcg PO 1 each DAILY TAMMY Administration Trelegy Ellipta 0 each 01/10/19 07:00 01/10/19 10:33 INH Not Given DAILY-RT TAMMY Prednisone 5 mg 01/05/19 08:00 01/10/19 08:04 Prednisone PO 5 mg QAM-WM TAMMY Administration Rivaroxaban 20 mg 01/05/19 17:00 01/09/19 17:47 Xarelto PO 20 mg QPM-WM TAMMY Administration - Exam awake alert General - other findings: No obvious distress Eye: anicteric sclera ENT: moist mucosa ENT - other findings: resolving facial bruise noted Neck: supple Heart: RRR Respiratory - other findings: fair air entry on the right. Bronchial breath sound on the left Gastrointestinal: soft, non-tender, non-distended, normal bowel sounds Extremeties - other findings: marked edema of right upper limb. Moderate bilateral leg edema Neurological: CN's grossly intact, no focal deficits Psychiatric: normal affect, A&O x 3 Hosp A/P (1) Pathological fracture due to metastatic bone disease Code(s): M84.50XA - PATHOLOGICAL FRACTURE IN NEOPLASTIC DISEASE, UNSP SITE, INIT Status: Acute (2) Syncope and collapse Code(s): R55 - SYNCOPE AND COLLAPSE Status: Acute (3) Elevated troponin Code(s): R74.8 - ABNORMAL LEVELS OF OTHER SERUM ENZYMES Status: Acute (4) JANN (acute kidney injury) Code(s): N17.9 - ACUTE KIDNEY FAILURE, UNSPECIFIED Status: Acute (5) Ribs, multiple fractures Code(s): S22.49XA - MULTIPLE FRACTURES OF RIBS, UNSP SIDE, INIT FOR CLOS FX Status: Acute (6) Nasal bone fracture Code(s): S02.2XXA - FRACTURE OF NASAL BONES, INIT ENCNTR FOR CLOSED FRACTURE Status: Acute (7) Humerus lesion, right Code(s): M89.9 - DISORDER OF BONE, UNSPECIFIED Status: Acute (8) Bilateral leg edema Code(s): R60.0 - LOCALIZED EDEMA Status: Acute (9) Acute traumatic pain Code(s): G89.11 - ACUTE PAIN DUE TO TRAUMA Status: Acute (10) CKD (chronic kidney disease) stage 3, GFR 30-59 ml/min Code(s): N18.3 - CHRONIC KIDNEY DISEASE, STAGE 3 (MODERATE) Status: Acute (11) Chronic atrial fibrillation Code(s): I48.2 - CHRONIC ATRIAL FIBRILLATION Status: Acute (12) Chronic hypoxemic respiratory failure Code(s): J96.11 - CHRONIC RESPIRATORY FAILURE WITH HYPOXIA Status: Acute (13) Diabetes mellitus Code(s): E11.9 - TYPE 2 DIABETES MELLITUS WITHOUT COMPLICATIONS Status: Acute (14) S/P lobectomy of lung Status: Acute (15) CAD (coronary artery disease) Code(s): I25.10 - ATHSCL HEART DISEASE OF [place] CORONARY ARTERY W/O ANG PCTRS Status: Chronic (16) COPD (chronic obstructive pulmonary disease) Status: Chronic (17) HTN (hypertension) Code(s): I10 - ESSENTIAL (PRIMARY) HYPERTENSION Status: Chronic (18) Lung cancer Code(s): C34.90 - MALIGNANT NEOPLASM OF UNSP PART OF UNSP BRONCHUS OR LUNG Status: Chronic (19) Hyperkalemia Code(s): E87.5 - HYPERKALEMIA Status: Acute (20) Type 2 AMI (acute myocardial infarction) Code(s): I21.A1 - MYOCARDIAL INFARCTION TYPE 2 Status: Acute (21) Acute on chronic anemia Code(s): D64.9 - ANEMIA, UNSPECIFIED Status: Acute - Plan Get MRI of the brain ro rule in /out brain mets Implantable loop recorder contemplated by cardiology Continue current analgesic regimen Continue anticoagulation with xarelto Continue other supportive care including Oxygen and bronchodilators. Increase activity PT/OT eval and treat. Further evaluation of syncope as per cardiology
--- NOTE | 2019-01-10 11:29 | MRI ---
MRI BRAIN WITH AND WITHOUT CONTRAST: INDICATIONS: Lung cancer. Brain metastases. COMPARISON: There are no comparison studies. FINDINGS: The ventricles have normal size and position. No evidence of restricted diffusion. There are numerous enhancing lesions seen throughout the brain, consistent with metastatic disease to the brain. In the left temporal lobe, posterior to the sylvian fissure, is an 8 mm, ring-enhancing mass, which d oes exhibit peripheral FLAIR signal, consistent with mild edema or gliosis. There is a 2.0 cm ring-enhancing mass in the left frontal lobe, parasagittal location, probably invol ving the corpus callosum anteriorly, on the left. This exhibits peripheral FLAIR signal, consistent with edema and gliosis. In the left parietal lobe, superiorly, in the region of the post central gyrus, on the left, is a 1 c m enhancing nodule. There is a 0.6 cm enhancing nodule in the right frontal lobe, near the central sulcus. There is another tiny, 4 mm enhancing nodule in the left frontal lobe paracentral region and another probable 3 mm enhancing nodule in the left parasagittal frontal lobe. IMPRESSION: Multiple foci of brain metastases, as described above. POS: ZOFIA
--- NOTE | 2019-01-10 12:49 | PDOC.CTH ---
Cardiology Progress Note - Subjective The pt seen and examined. No overnight events. No cardiac complaints. - Objective Vital Signs Temp Pulse Resp BP BP Pulse Ox 01/10/19 12:21 97.8 F 87 18 105/56 L 99 01/10/19 08:07 94 01/10/19 07:58 98 F 94 20 100/59 L 94 L 01/10/19 07:04 93 L 01/10/19 07:03 90 20 93 L 01/10/19 06:57 90 20 92 L 01/10/19 04:00 98.6 F 93 20 105/52 L 93 L Weight 205 lb 8 oz 01/09/19 01/10/19 01/11/19 06:59 06:59 06:59 Intake Total 1940 1090 Output Total 750 650 Balance 1190 440 - Physical Examination General/Neuro: alert & oriented x3 Neck: no JVD present Lungs: other: (very diminished at bases) Heart: RRR Abdomen: soft Extremities: other: (generalized edema;) - Telemetry Telemetry Rhythm: SR - Labs Result Diagrams: 01/09/19 08:06 01/09/19 08:06 Troponin/CKMB CK-MB (CK-2) 4.5 ng/mL (0-6.6) 01/04/19 20:34 Troponin I 0.094 ng/mL (< 0.028) H 01/05/19 Unknown - Assessment/Plan 1. Syncope episode - waiting for MRI brain result prior to LINQ placement 2. CAD with hx of CABG in 2010 - 3. Parox Afib - remains in SR; not on OAC or ASA 2/2 pancytopenia 4. S/p Rt upper arm Fx 5. Stage IV metastatic adnocarcinoma of lung with bone metastasis and possible brain metastasis 6. HTN - stable 7. COPD - on 3LNC 8. Hx of PE MAR reviewed Echo on 01/08/2019 with EF 50-55%, grade I dd, mild MR and TR, mod with KARO 1.3cm sq, delayed septal motion consistent with BBB morphology Pt. seen and eval. by me. He remains in NSR. No arrythmias or pauses. The MRI is compatible with brain mets. He wants to go to [facility] for possaible further treatment. at this time I will continue to monitor on tele and suggest an event monitor. If the prognosis is < 6months survival then he is not a reasonable candidate for a pacemaker. I agree with the A/P by the EMOTIONAL SUPPORT TEACHER. Review of Systems - Review of Systems Constitutional: reports: weakness EENTM: reports: no symptoms reported Respiratory: reports: shortness of breath Cardiac (ROS): reports: no symptoms reported ABD/GI: reports: no symptoms reported
--- NOTE | 2019-01-10 18:10 | PRG ---
DATE OF SERVICE: 01/10/2019 SUBJECTIVE: Visited with Mr. Barbosa again this evening. He had an MRI of the brain earlier this morning. He has no new symptoms this evening compared to when I saw him this morning. His pain still seems reasonably controlled. He voices no complaints. OBJECTIVE: Vital signs have been stable. He is afebrile. He remains alert and oriented. Karnofsky performance status is 70%. Remainder of physical exam was not performed. RADIOLOGIC DATA: MRI of the brain performed earlier today was personally reviewed. He has at least 6 contrast-enhancing lesions consistent with metastatic disease. The largest one measures 2 cm. There is only mild edema. ASSESSMENT: Mr. Barbosa has now been shown to have brain metastasis by his MRI of the brain. I do not think this is the cause of his syncopal episode. His cardiac workup is still in progress. PLAN: I had a long discussion with Mr. Barbosa and his as well as his daughter by telephone regarding his diagnosis of brain metastasis and our possible treatment options. He does have other systemic disease, which is slowly progressing on immunotherapy. The recommended treatment for his brain metastasis is whole-brain radiation therapy. I would also use Namenda concurrently with this to reduce the risk of some of the cognitive effects from radiation. The recommendation for radiation therapy was made to him. The logistics of radiation as well as benefits and risk of treatment were discussed. The simulation and daily treatment procedure were discussed. Side effects would include but not be limited to skin reaction, fatigue, lower blood counts, hair loss, headache, nausea, vomiting, fluid behind the eardrums, and risk of long-term affects on cognition and memory. We also had a good discussion regarding the effectiveness of the treatment and what to expect from the treatment as well as survival. Time was taken to answer all the questions regarding the treatment options. He does wish to think about it for the next several days before making a decision. They will contact me should they have additional questions. Job ID: [id number]
[2019-01-10] MEDS: Rivaroxaban 10 MG TAB PO SCH (18:50)
[2019-01-10] MEDS: Atorvastatin Calcium 40 MG TAB PO SCH (20:59)
[2019-01-11] MEDS: TRELEGY ELLIPTA INH SCH (07:16)
[2019-01-11] MEDS ORDERED: Morphine ER 15 MG TAB PO SCH (09:00)
[2019-01-11] MEDS: predniSONE 5 MG TAB PO SCH (09:12)
[2019-01-11] MEDS: Dronedarone HCl 400 MG TAB PO SCH ×2 (09:12→16:05)
[2019-01-11] MEDS: Digoxin 0.125 MG TAB PO SCH (09:13)
[2019-01-11] MEDS: Gabapentin 300 MG CAP PO SCH (09:13)
[2019-01-11] MEDS: Furosemide 40 MG TAB PO SCH (09:13)
[2019-01-11] MEDS: Metoprolol Tartrate 25 MG TAB PO SCH (09:13)
[2019-01-11] MEDS: Multivitamin W/ Minerals 1 TAB PO SCH (09:15)
[2019-01-11] MEDS: MAGNESIUM CHLORIDE 71.5 MG PO SCH ×2 (09:17→15:16)
[2019-01-11] MEDS: Roflumilast [Daliresp] 500 MCG PO SCH (09:17)
--- NOTE | 2019-01-11 13:24 | PDOC.CTH ---
Cardiology Progress Note - Subjective The pt seen and examined. No overnight events. He cont. complaining of fatigue and SOB. - Objective Vital Signs Temp Pulse Resp BP BP Pulse Ox 01/11/19 12:00 98.3 F 80 21 H 104/57 L 94 L 01/11/19 09:13 94 01/11/19 07:53 98.4 F 104 H 20 95/57 L 95 01/11/19 03:47 98.4 F 89 22 H 94/52 L 94 L Weight 205 lb 8 oz 01/10/19 01/11/19 01/12/19 06:59 06:59 06:59 Intake Total 1090 900 Output Total 650 500 Balance 440 400 - Physical Examination General/Neuro: alert & oriented x3 Neck: no JVD present Lungs: other: (very diminished at bases) Heart: RRR Abdomen: soft Extremities: other: (generalized edema;) - Telemetry Telemetry Rhythm: SR - Labs Result Diagrams: 01/09/19 08:06 01/09/19 08:06 Troponin/CKMB CK-MB (CK-2) 4.5 ng/mL (0-6.6) 01/04/19 20:34 Troponin I 0.094 ng/mL (< 0.028) H 01/05/19 Unknown - Assessment/Plan 1. Syncope episode - MRI brain showed total 5 brain metastasis; EVR intead of LINQ placement at discharge is recommended. 2. CAD with hx of CABG in 2010 - stable;On Metoprolol 25mg BID and Lipitor; On Xarelto. 3. Parox Afib - remains in SR; On Multaq, bblocker, and Xarelto. 4. S/p Rt upper arm Fx 5. Stage IV metastatic adnocarcinoma of lung with bone metastasis and brain metastasis 6. HTN - stable 7. COPD - on 3LNC 8. Hx of PE MAR reviewed * Echo on 01/08/2019 with EF 50-55%, grade I dd, mild MR and TR, mod with KARO 1.3cm sq, delayed septal motion consistent with BBB morphology * EVR intead of LINQ placement at discharge is recommended. Pt. seen and eval. by me.I agree with the A/P by the RECORDS AND INFORMATION MANAGER. I will arrange for a 7 day event monitor to be placed and then he can be d/c'd to home. Chest: decreased BS in right mid-base areas. RRR, 2+ edema. He can f/u with me in 2-3 weeks. [email or web address] Review of Systems - Review of Systems Constitutional: reports: weakness EENTM: reports: no symptoms reported Respiratory: reports: shortness of breath Cardiac (ROS): reports: no symptoms reported ABD/GI: reports: no symptoms reported : reports: no symptoms reported
--- NOTE | 2019-01-11 13:50 | PDOC.HOSPP ---
- Subjective Encounter Date: 01/11/19 Encounter Time: 13:49 Subjective: 73 y/o male with multiple commorbiditoies including CAD s/p CABG, atrial fib on chronic anticoagulation with xarelto, metastastic lung cancer s/p left upper lobe lobectomy, chronic respiratory failure from COPD on oxygen admitted after a syncopal and collapse with nasal bone and right humeral pathologic fracture as well as multiple left sided rib fractures. Had Intramedullary nailing 2018. Pain control is better. BP was soft earlier but patient remained asymptomatic. No fever or worsening SOB. - Objective Vital Signs & Weight: Vital Signs (12 hours) Temp Pulse Resp BP BP Pulse Ox 01/11/19 12:00 98.3 F 80 21 H 104/57 L 94 L 01/11/19 09:13 94 01/11/19 07:53 98.4 F 104 H 20 95/57 L 95 01/11/19 03:47 98.4 F 89 22 H 94/52 L 94 L Weight Weight 205 lb 8 oz I&O: 01/10/19 01/11/19 01/12/19 06:59 06:59 06:59 Intake Total 1090 900 Output Total 650 500 Balance 440 400 Result Diagrams: 01/09/19 08:06 01/09/19 08:06 Additional Labs: Accuchecks 01/10/19 21:10 POC Glucose 202 H ROS - Medication Medications: Active Medications Generic Name Dose Route Start Last Admin Trade Name Freq PRN Reason Stop Dose Admin Hydrocodone Bitart/Acetaminophen 1 tab 01/05/19 21:10 01/10/19 09:43 [place] 5/325 PO 1 tab Q4H PRN Administration Moderate Pain (4-6) Albuterol/Ipratropium 3 ml 01/08/19 15:00 01/11/19 09:47 Duoneb NEB 3 ml QID-RT TAMMY Administration Atorvastatin Calcium 40 mg 01/05/19 21:00 01/10/19 20:59 Lipitor PO 40 mg HS TAMMY Administration Digoxin 0.125 mg 01/05/19 09:00 01/11/19 09:13 Lanoxin PO 0.125 mg DAILY TAMMY Administration Dronedarone 400 mg 01/05/19 08:00 01/11/19 09:12 Multaq PO 400 mg BID-WM TAMMY Administration Furosemide 40 mg 01/05/19 09:00 01/11/19 09:13 Lasix PO 40 mg DAILY TAMMY Administration Gabapentin 300 mg 01/05/19 09:00 01/11/19 09:13 Neurontin PO 300 mg BID TAMMY Administration Insulin Human Lispro 0 units 01/08/19 14:47 01/09/19 18:10 Humalog SC 6 unit .AGGRESSIVE SLIDING PRN Administration Aggressive Correctional Scale Iron/Minerals/Multivitamins 1 tab 01/05/19 09:00 01/11/19 09:15 Theragran M PO Not Given DAILY TAMMY Metoprolol Tartrate 25 mg 01/08/19 09:00 01/11/19 09:13 Lopressor PO 25 mg BID TAMMY Administration Magnesium Chloride [ 0 each 01/05/19 21:00 01/11/19 09:17 Nu-Mag] 71.5 Mg PO 1 each TID TAMMY Administration Roflumilast [ 0 each 01/06/19 09:00 01/11/19 09:17 Daliresp] 500 Mcg PO 1 each DAILY TAMMY Administration Trelegy Ellipta 0 each 01/10/19 07:00 01/11/19 07:16 INH Not Given DAILY-RT TAMMY Prednisone 5 mg 01/05/19 08:00 01/11/19 09:12 Prednisone PO 5 mg QAM-WM TAMMY Administration Rivaroxaban 20 mg 01/05/19 17:00 01/10/19 18:50 Xarelto PO 20 mg QPM-WM TAMMY Administration - Exam awake alert Eye: anicteric sclera ENT - other findings: resolving facial bruise noted Neck: symmetric Heart: no murmur Respiratory - other findings: Decreased air movement left lung field Gastrointestinal: soft, non-tender, non-distended, normal bowel sounds Extremeties - other findings: RUE and bilateral LLE edema noted. Right shoulder dressing noted Neurological: CN's grossly intact, no new deficit Psychiatric: A&O x 3 Hosp A/P (1) Pathological fracture due to metastatic bone disease Code(s): M84.50XA - PATHOLOGICAL FRACTURE IN NEOPLASTIC DISEASE, UNSP SITE, INIT Status: Acute (2) Syncope and collapse Code(s): R55 - SYNCOPE AND COLLAPSE Status: Acute (3) Elevated troponin Code(s): R74.8 - ABNORMAL LEVELS OF OTHER SERUM ENZYMES Status: Acute (4) JANN (acute kidney injury) Code(s): N17.9 - ACUTE KIDNEY FAILURE, UNSPECIFIED Status: Acute (5) Ribs, multiple fractures Code(s): S22.49XA - MULTIPLE FRACTURES OF RIBS, UNSP SIDE, INIT FOR CLOS FX Status: Acute (6) Nasal bone fracture Code(s): S02.2XXA - FRACTURE OF NASAL BONES, INIT ENCNTR FOR CLOSED FRACTURE Status: Acute (7) Humerus lesion, right Code(s): M89.9 - DISORDER OF BONE, UNSPECIFIED Status: Acute (8) Bilateral leg edema Code(s): R60.0 - LOCALIZED EDEMA Status: Acute (9) Acute traumatic pain Code(s): G89.11 - ACUTE PAIN DUE TO TRAUMA Status: Acute (10) CKD (chronic kidney disease) stage 3, GFR 30-59 ml/min Code(s): N18.3 - CHRONIC KIDNEY DISEASE, STAGE 3 (MODERATE) Status: Acute (11) Chronic atrial fibrillation Code(s): I48.2 - CHRONIC ATRIAL FIBRILLATION Status: Acute (12) Chronic hypoxemic respiratory failure Code(s): J96.11 - CHRONIC RESPIRATORY FAILURE WITH HYPOXIA Status: Acute (13) Diabetes mellitus Code(s): E11.9 - TYPE 2 DIABETES MELLITUS WITHOUT COMPLICATIONS Status: Acute (14) S/P lobectomy of lung Status: Acute (15) CAD (coronary artery disease) Code(s): I25.10 - ATHSCL HEART DISEASE OF [place] CORONARY ARTERY W/O ANG PCTRS Status: Chronic (16) COPD (chronic obstructive pulmonary disease) Status: Chronic (17) HTN (hypertension) Code(s): I10 - ESSENTIAL (PRIMARY) HYPERTENSION Status: Chronic (18) Lung cancer Code(s): C34.90 - MALIGNANT NEOPLASM OF UNSP PART OF UNSP BRONCHUS OR LUNG Status: Chronic (19) Hyperkalemia Code(s): E87.5 - HYPERKALEMIA Status: Acute (20) Type 2 AMI (acute myocardial infarction) Code(s): I21.A1 - MYOCARDIAL INFARCTION TYPE 2 Status: Acute (21) Acute on chronic anemia Code(s): D64.9 - ANEMIA, UNSPECIFIED Status: Acute (22) Metastasis to brain Code(s): C79.31 - SECONDARY MALIGNANT NEOPLASM OF BRAIN Status: Acute - Plan DC MS contin due to low BP. Continie other medications Continue anticoagulation with xarelto Continue other supportive care including Oxygen and bronchodilators. PT/OT eval and treat. For discharge once cleared by Cardiology
[2019-01-11 15:16] VITALS: BP 93/51; TEMP 97.5
[2019-01-11] MEDS: Rivaroxaban 10 MG TAB PO SCH (16:05)
--- NOTE | 2019-01-13 15:14 | EKG ---
Test Reason : FALL Blood Pressure : / mmHG Vent. Rate : 104 BPM Atrial Rate : 104 BPM P-R Int : 168 ms QRS Dur : 114 ms QT Int : 328 ms P-R-T Axes : 050 -32 071 degrees QTc Int : 431 ms Sinus tachycardia with occasional Premature ventricular complexes Left axis deviation Incomplete right bundle branch block Nonspecific ST and T wave abnormality Abnormal ECG Confirmed by ELVIA JUNG D.O. ([id number]), scientific editor TONG JENNINGS ([id number] on 01/13/2019 3:14:05 PM Referred By: ERICH Confirmed By:ELVIA JUNG D.O.
== END 2019-01-11 18:29 | disposition home or self-care (01) | DRG 492 ==
LOC: ERS 20:04 → 2NO 23:01 → EEVIPCON 23:01
PROVIDERS: ADMIT Hospitalist; ATTEND Hospitalist
PROC: 0PHF06Z Insertion of Intramedullary Internal Fixation Device into Right Humeral Shaft, Open Approach (ICD-10-PCS; principal; 2019-01-07)
DX: M84.521A Pathological fracture in neoplastic disease, right humerus, initial encounter for fracture (principal); I21.A1 Myocardial infarction type 2; S22.42XA Multiple fractures of ribs, left side, initial encounter for closed fracture; J96.11 Chronic respiratory failure with hypoxia; C79.51 Secondary malignant neoplasm of bone; C79.31 Secondary malignant neoplasm of brain; E87.1 Hypo-osmolality and hyponatremia; E87.2 Acidosis; N17.9 Acute kidney failure, unspecified; E87.5 Hyperkalemia; Z51.5 Encounter for palliative care; D63.0 Anemia in neoplastic disease; E11.22 Type 2 diabetes mellitus with diabetic chronic kidney disease; I48.0 Paroxysmal atrial fibrillation; J44.9 Chronic obstructive pulmonary disease, unspecified; N18.3 Chronic kidney disease, stage 3 (moderate); S80.212A Abrasion, left knee, initial encounter; S80.211A Abrasion, right knee, initial encounter; W17.89XA Other fall from one level to another, initial encounter; I25.10 Atherosclerotic heart disease of native coronary artery without angina pectoris; S02.2XXA Fracture of nasal bones, initial encounter for closed fracture; R55 Syncope and collapse; I12.9 Hypertensive chronic kidney disease with stage 1 through stage 4 chronic kidney disease, or unspecified chronic kidney disease; E78.5 Hyperlipidemia, unspecified; Y93.89 Activity, other specified; Y92.009 Unspecified place in unspecified non-institutional (private) residence as the place of occurrence of the external cause; Z95.1 Presence of aortocoronary bypass graft; Z87.891 Personal history of nicotine dependence; Z99.81 Dependence on supplemental oxygen; Z79.01 Long term (current) use of anticoagulants; Z86.711 Personal history of pulmonary embolism; Z85.118 Personal history of other malignant neoplasm of bronchus and lung
CPT/HCPCS: 36415; 36416; 70450; 70553; 71045; 72125; 76000; 77336; 77412; 77417; 80048; 80053; 82553; 83735; 84484; 85025; 85610; 85730; 93005; 93306; 93880; 94640; 96374; 96375; C1713; C1769; J0670; J0690; J1100; J1642; J2270; J2370; J2405; J3010; J3370; J7050; J7512; J7620

== ENCOUNTER 2019-01-24 13:35 | Outpatient (CLI) | payer MEDICARE, BC ==
--- NOTE | 2019-01-24 14:36 | RAD ---
TWO VIEW CHEST: 01/24/19 HISTORY: Dyspnea. COMPARISON: 07/19/18 There is confluent infiltrate and atelectasis in the left mid and lower lung with elevated left hemid iaphragm, similar appearance to the prior exam. Some hazy infiltrate or atelectasis in the right lung base is more prominent today. Mediport catheter is again noted in place. Mild cardiomegaly. No evide nce of vascular congestion. IMPRESSION: Confluent opacity in the left mid and lower lung with elevated left hemidiaphragm, similar in appeara nce to the prior study. POS: ZOFIA
== END 2019-01-24 13:36 | disposition home or self-care (01) ==
LOC: RAD 13:35
PROVIDERS: ATTEND Internal Medicine Critical Care Medicine
DX: R06.00 Dyspnea, unspecified (principal); R91.8 Other nonspecific abnormal finding of lung field; J98.6 Disorders of diaphragm
CPT/HCPCS: 71046